=== PATIENT | male | born 1935 | race Caucasian/White ===

== ENCOUNTER 2017-12-14 09:14 | Inpatient (IN) | payer OTHER, MEDICARE ==
[~2017-12-14] VITALS: Ht 170.2 cm; Wt 133.4 kg
[2017-12-14] VITALS (12 sets, daily range): BP systolic 123–184; BP diastolic 58–75; PULSE 54–69; RESP 16–24; TEMP 96–98; O2SAT 95–98
[2017-12-14] MEDS ORDERED: SODIUM CHLORIDE 0.9% FLUSH 10 ML FLUSH IVF PRN (09:45)
[2017-12-14] MEDS ORDERED: METF500T PO (09:50)
[2017-12-14] MEDS ORDERED: TAMS0.4C4 PO (09:50)
[2017-12-14] MEDS ORDERED: ASPI-516 CHEW (09:50)
[2017-12-14] MEDS ORDERED: LEVO100T5 PO (09:50)
[2017-12-14] MEDS ORDERED: HYDR-3516 PO (09:50)
[2017-12-14] MEDS ORDERED: ROSU1TAB8 PO (09:50)
[2017-12-14] MEDS ORDERED: ATEN100T7 PO (09:50)
[2017-12-14] MEDS ORDERED: FINA5TAB2 (09:50)
[2017-12-14] MEDS ORDERED: ENAL10TA PO (09:50)
--- NOTE | 2017-12-14 09:54 | PD ---
HPI Chief Complaint: Cardiac Complaint Time Seen by Provider: 09:36 Travel History International Travel<30 days: No Contact w/Intl Traveler<30days: No Traveled to known affect area: No History of Present Illness HPI Patient woke up with an episode of shortness of breath/chest tightness, nonradiating, of such severity that he felt like he was going to pass out. Stated the episode lasted approximately 1 minute, and luckily he did not pass out. Patient denied any room spinning sensation, any fever, any rash, any nausea, any vomiting, any diarrhea, any abdominal pain, flank pain, back pain. Primary care is Dr.GREGORY LI CARDIO DR ARANDA No known drug allergy Past medical history significant for heart valve issue, hypertension, PFSH Past Medical History Cardiovascular Problems: Yes Hypertension: Yes Medical other: Yes (needs knee replacement) Respiratory: Yes Past Surgical History Surgical History: No Previous Surgery Social History Alcohol Use: No Tobacco Use: No Substance Use: No Allergies-Medications (Allergen,Severity, Reaction): Coded Allergies: No Known Allergies (Verified Allergy, Unknown, 12/14/17) Reported Meds & Prescriptions Reported Meds & Active Scripts Active Reported Aspirin 81 Mg Chew 81 Mg CHEW DAILY Hydrocodone-Acetaminophen 5-325 mg Tab 1 Tab PO Q4H PRN Rosuvastatin (Rosuvastatin Calcium) 20 Mg Tab 20 Mg PO DAILY Finasteride 5 Mg Tab 5 Mg DAILY Do not crush. Levothyroxine (Levothyroxine Sodium) 100 Mcg Tab 100 Mcg PO DAILY Metformin (Metformin HCl) 500 Mg Tab 500 Mg PO BIDPC Tamsulosin (Tamsulosin HCl) 0.4 Mg Cap 0.8 Mg PO HS Atenolol-Chlorthalidone 100-25 Mg Tab 1 Tab PO DAILY Enalapril (Enalapril Maleate) 10 Mg Tab 10 Mg PO DAILY Review of Systems General / Constitutional: No: Fever Eyes: No: Visual changes HENT: No: Headaches Cardiovascular: No: Chest Pain or Discomfort Respiratory: Positive: Shortness of Breath Gastrointestinal: No: Abdominal Pain Genitourinary: No: Dysuria Musculoskeletal: No: Pain Skin: No Rash Neurologic: Positive: Syncope Psychiatric: No: Depression Endocrine: No: Polydipsia Hematologic/Lymphatic: No: Easy Bruising Physical Exam Narrative GENERAL: SKIN: Warm and dry. HEAD: Atraumatic. Normocephalic. EYES: Pupils equal and round. No scleral icterus. No injection or drainage. ENT: No nasal bleeding or discharge. Mucous membranes pink and moist. NECK: Trachea midline. No JVD. CARDIOVASCULAR: Regular rate and rhythm. Loud murmur radiating to the left axilla RESPIRATORY: No accessory muscle use. Clear to auscultation. Breath sounds equal bilaterally. GASTROINTESTINAL: Abdomen soft, non-tender, nondistended. MUSCULOSKELETAL: Extremities without clubbing, cyanosis, or bilateral lower extremity 3+ edema. No obvious deformities. NEUROLOGICAL: Awake and alert. No obvious cranial nerve deficits. Motor grossly within normal limits. Five out of 5 muscle strength in the arms and legs. Normal speech. PSYCHIATRIC: Appropriate mood and affect; insight and judgment normal. Data Data Last Documented VS Vital Signs Date Time Temp Pulse Resp B/P (MAP) Pulse Ox O2 Delivery O2 Flow Rate FiO2 12/14/17 12:00 54 17 152/66 (94) 97 Room Air 12/14/17 09:29 98.0 Orders Orders Electrocardiogram (12/14/17 09:36) B-Type Natriuretic Peptide (12/14/17 09:36) Ckmb (Isoenzyme) Profile (12/14/17 09:36) Complete Blood Count With Diff (12/14/17 09:36) Comprehensive Metabolic Panel (12/14/17 09:36) D-Dimer (12/14/17 09:36) Prothrombin Time / Inr (Pt) (12/14/17 09:36) Act Partial Throm Time (Ptt) (12/14/17 09:36) Troponin I (12/14/17 09:36) Lipase (12/14/17 09:36) Chest, Single Ap (12/14/17 09:36) Ecg Monitoring (12/14/17 09:36) Bilateral Bp Monitoring (12/14/17 09:36) Iv Access Insert/Monitor (12/14/17 09:36) Oximetry (12/14/17 09:36) Sodium Chloride 0.9% Flush (Ns Flush) (12/14/17 09:45) Ct Pulmonary Angiogram (12/14/17 10:33) Iohexol 350 Inj (Omnipaque 350 Inj) (12/14/17 13:20) Admit Order (Ed Use Only) (5/30/18 13:59) Labs Laboratory Tests Test 12/14/17 09:50 White Blood Count 6.5 TH/MM3 Red Blood Count 4.17 MIL/MM3 Hemoglobin 12.2 GM/DL Hematocrit 37.1 % Mean Corpuscular Volume 88.9 FL Mean Corpuscular Hemoglobin 29.3 PG Mean Corpuscular Hemoglobin Concent 33.0 % Red Cell Distribution Width 13.9 % Platelet Count 161 TH/MM3 Mean Platelet Volume 8.5 FL Neutrophils (%) (Auto) 63.0 % Lymphocytes (%) (Auto) 25.4 % Monocytes (%) (Auto) 9.7 % Eosinophils (%) (Auto) 1.2 % Basophils (%) (Auto) 0.7 % Neutrophils # (Auto) 4.1 TH/MM3 Lymphocytes # (Auto) 1.7 TH/MM3 Monocytes # (Auto) 0.6 TH/MM3 Eosinophils # (Auto) 0.1 TH/MM3 Basophils # (Auto) 0.0 TH/MM3 CBC Comment DIFF FINAL Differential Comment Prothrombin Time 10.0 SEC Prothromb Time International Ratio 1.0 RATIO Activated Partial Thromboplast Time 26.3 SEC D-Dimer Quantitative (PE/DVT) 0.86 MG/L FEU Blood Urea Nitrogen 26 MG/DL Creatinine 1.37 MG/DL Random Glucose 124 MG/DL Total Protein 6.9 GM/DL Albumin 3.3 GM/DL Calcium Level 8.8 MG/DL Alkaline Phosphatase 81 U/L Aspartate Amino Transf (AST/SGOT) 22 U/L Alanine Aminotransferase (ALT/SGPT) 29 U/L Total Bilirubin 0.3 MG/DL Sodium Level 140 MEQ/L Potassium Level 4.5 MEQ/L Chloride Level 105 MEQ/L Carbon Dioxide Level 27.0 MEQ/L Anion Gap 8 MEQ/L Estimat Glomerular Filtration Rate 50 ML/MIN Total Creatine Kinase 34 U/L Troponin I LESS THAN 0.02 NG/ML B-Type Natriuretic Peptide 132 PG/ML Lipase 226 U/L MDM Medical Decision Making Medical Screen Exam Complete: Yes Emergency Medical Condition: Yes Medical Record Reviewed: Yes Interpretation(s) Pulse ox: On room air patient's pulse oximetry read from 97-100 which is within normal limits and without any evidence of hypoxemia EKG shows normal sinus rhythm, 65 bpm, first-degree AV block, no ST elevation [place] pattern noted, Differential Diagnosis Pulmonary embolus versus pneumonia versus pericardial effusion versus STEMI versus symptomatic heart valve Narrative Course CBC shows no leukocytosis, no anemia, normal platelet count, no left shift Coagulation profile is within normal limits D-dimer is elevated at 0.86 Electrolytes are all within normal limits with the exception of a BUN of 26, creatinine 1.37, GFR of 50, first set of troponin negative, normal liver enzymes normal pancreatic enzymes. Beta natruretic peptide of 132 which is within normal limits Chest x-ray read by radiologist as moderate compensated cardiomegaly, consolidative changes in the base CT chest was read by radiologist as no evidence of pulmonary embolus and coronary artery calcifications Diagnosis Primary Impression: Symptomatic valve disorder Admitting Information Admitting Physician Requests: Observation Eligio Martinez MD December 14, 2017 09:54
[2017-12-14 10:04] LABS: AUTOMATED NEUTROPHIL # 4.1 TH/MM3 (1.8-7.7); BASOPHIL % 0.7 % (0.0-2.0); EOSINOPHIL # 0.1 TH/MM3 (0-0.4); EOSINOPHIL % 1.2 % (0.0-4.0); HEMATOCRIT 37.1 % (39.0-51.0); HEMOGLOBIN 12.2 GM/DL (13.0-17.0); LYMPH % 25.4 % (9.0-44.0); LYMPHOCYTE # 1.7 TH/MM3 (1.0-4.8); MEAN CELL VOLUME 88.9 FL (80.0-100.0); MEAN CORPUSCULAR HEMOGLOBIN 29.3 PG (27.0-34.0); MEAN PLATELET VOLUME 8.5 FL (7.0-11.0); MONO % 9.7 % (0.0-8.0); MONOCYTE # 0.6 TH/MM3 (0-0.9); PLATELET COUNT 161 TH/MM3 (150-450); RED BLOOD COUNT 4.17 MIL/MM3 (4.50-5.90); RED CELL DISTRIBUTION WIDTH 13.9 % (11.6-17.2); WHITE BLOOD COUNT 6.5 TH/MM3 (4.0-11.0)
[2017-12-14 10:19] LABS: D-DIMER 0.86 MG/L FEU (0.00-0.50)
--- NOTE | 2017-12-14 10:22 | RADRPT ---
EXAM DATE: 12/14/2017 10:09 AM EDT AGE/SEX: 82 years / Male INDICATIONS: Short of breath,syncope CLINICAL DATA: This is the patient's initial encounter. Patient reports that signs and symptoms have been present for 1 day and indicates a pain score of 0/10. MEDICAL/SURGICAL HISTORY: . hx of aortic valve problems None. COMPARISON: No prior [place] exams available for comparison. FINDINGS: Moderate cardiomegaly with consolidative changes left base. No overt failure. No pleural effusion. Th e portion of the bony skeleton visualized is unremarkable. CONCLUSION: Moderate compensated the baby cardiomegaly Consolidative changes left base. Electronically signed by: Wally Pena MD 12/14/2017 10:20 AM EDT
[2017-12-14 10:27] LABS: ALBUMIN 3.3 GM/DL (3.4-5.0); ALT (GPT) 29 U/L (12-78); AST (GOT) 22 U/L (15-37); BLOOD UREA NITROGEN 26 MG/DL (7-18); CALCIUM 8.8 MG/DL (8.5-10.1); CHLORIDE 105 MEQ/L (98-107); CREATININE 1.37 MG/DL (0.60-1.30); GLOMERULAR FILTRATION RATE 50 ML/MIN (>89); GLUCOSE,RANDOM 124 MG/DL (74-106); SODIUM (NA) 140 MEQ/L (136-145)
[2017-12-14 10:31] LABS: ALKALINE PHOSPHATASE 81 U/L (45-117); TOTAL BILIRUBIN ADULT 0.3 MG/DL (0.2-1.0); TOTAL PROTEIN 6.9 GM/DL (6.4-8.2); TROPONIN I LESS THAN 0.02 NG/ML (0.02-0.05)
[2017-12-14] MEDS ORDERED: IOHEXOL 350 MG/ML 10 ML VIAL (for RAD DIAG) IVCONTRAST ONE (13:20)
--- NOTE | 2017-12-14 13:29 | RADRPT ---
EXAM DATE: 12/14/2017 1:23 PM EDT AGE/SEX: 82 years / Male INDICATIONS: Shortness of breath for three days. CLINICAL DATA: This is the patient's initial encounter. Patient reports that signs and symptoms have been present for 1 day and indicates a pain score of 3/10. MEDICAL/SURGICAL HISTORY: Hypertension. None. RADIATION DOSE: 10.64 CTDI (mGy) COMPARISON: No prior [place] exams available for comparison. TECHNIQUE: Volumetric scanning was performed using a multi-row detector CT scanner during bolus infu nathalia of 71 ml Omnipaque 350 (iohexol) nonionic water-soluble contrast as a single exam dose. The yasmine a was post processed with a variety of visualization algorithms including full volume maximum intensi ty projection and sliding thin slab reformation. Using automated exposure control and adjustment of the mA and/or kV according to patient size, radiation dose was kept as low as reasonably achievable t o obtain optimal diagnostic quality images. FINDINGS: Pulmonary Arteries: No filling defects are seen in the pulmonary arteries out to the subsegmental ve ssels. The left and right pulmonary arteries are normal in diameter. Lung: No infiltrates seen. Effusion: None. Mediastinum: No evidence of mediastinal or hilar adenopathy. Coronary artery calcifications are pres ent. Atherosclerotic changes are present in the aorta. Other: The axilla is unremarkable. CONCLUSION: 1. No evidence of pulmonary embolism. 2. Coronary artery calcifications. Electronically signed by: Huber Hough MD 12/14/2017 1:28 PM EDT
--- NOTE | 2017-12-14 13:53 | EKG ---
Date Performed: 12/14/2017 Time Performed: 09:40:14 PTAGE: 82 years EKG: Sinus rhythm WITH SINUS ARRHYTHMIA WITH FIRST DEGREE AV BLOCK MODERATE INTRAVENTRICULAR CONDUCTION DELAY ABNORMAL ECG INTERPRETATION BASED ON A DEFAULT AGE OF 40 YEARS NO PREVIOUS TRACING DOCTOR: Brendon Dominguez Interpretating Date/Time 12/14/2017 13:51:48
[2017-12-14] MEDS ORDERED: IOHEXOL 350 MG/ML 100 ML BTL (for Cath Lab) OTHER ONE (14:02)
[2017-12-14] MEDS ORDERED: IOHEXOL 350 MG/ML 50 ML BTL (for Cath Lab) OTHER ONE (14:02)
[2017-12-14] MEDS ORDERED: NITROGLYCERIN 0.4 MG SL 25 TABS/BTL SL PRN (15:30)
[2017-12-14] MEDS ORDERED: MORPHINE SULFATE 2 MG/ML SYRINGE IV PUSH PRN ×2 (15:30)
[2017-12-14] MEDS ORDERED: NALOXONE HCL 0.4 MG/ML AMP IV PUSH PRN (15:30)
[2017-12-14] MEDS ORDERED: ONDANSETRON HCL 4 MG/2 ML VIAL IVP PRN (15:30)
[2017-12-14] MEDS ORDERED: SODIUM CHLORIDE 0.9% FLUSH 10 ML FLUSH IV FLUSH PRN ×2 (15:30)
[2017-12-14] MEDS ORDERED: MAGNESIUM HYDROXIDE SUSP 30 ML CUP PO PRN (15:30)
--- NOTE | 2017-12-14 15:39 | HHI.HP ---
[facility] Service [facility] Primary Care Physician James Aguirre M.D. Admission Diagnosis CP R/O CT Diagnoses: Travel History International Travel<30 Days: No Contact w/Intl Traveler <30 Da: No Traveled to Known Affected Are: No History of Present Illness Mr. Ashton is an 82 year old male. He came into the hospital after having a syncopal episode. He has aortic stenosis at baseline and follows as an outpatient with Dr. Grove. Etiology could be related to his aortic stenosis or another cause. When seen he is feeling back to baseline and has no complaints. He reports that he lost his orientation and lost his bladder. He says he recuperated back to consciousness in about 1 minute. No evidence of seizure activity. No other complaints today. He did not have any chest pain. He did not have any chest tightness. He does report that he was short of breath. He has had previous shortness of breath episodes similar to the one that preceded his syncopal episode today. Review of Systems Constitutional: DENIES: Fatigue, Fever, Chills Eyes: DENIES: Blurred vision, Diplopia, Eye inflammation, Eye pain Ears, nose, mouth, throat: DENIES: Hearing loss, Vertigo Respiratory: DENIES: Cough, Wheezing, Shortness of breath Cardiovascular: COMPLAINS OF: Chest pain, Syncope, DENIES: Palpitations, Dyspnea on Exertion Gastrointestinal: DENIES: Abdominal pain, Black stools, Bloody stools Musculoskeletal: DENIES: Joint pain, Muscle aches, Stiffness Integumentary: DENIES: Abnormal pigmentation, Nail changes, Pruritus, Rash Hematologic/lymphatic: DENIES: Bruising, Lymphadenopathy Immunologic/allergic: DENIES: Eczema, Urticaria Neurologic: DENIES: Abnormal gait, Headache, Paresthesias Psychiatric: DENIES: Anxiety, Confusion, Hallucinations Past Family Social History Past Medical History Valve Disease HTN DM2 Osteoarthritis Hyperlipidemia BPH Past Surgical History None reported Reported Medications Reported Meds & Active Scripts Active Reported Aspirin 81 Mg Chew 81 Mg CHEW DAILY Hydrocodone-Acetaminophen 5-325 mg Tab 1 Tab PO Q4H PRN Rosuvastatin (Rosuvastatin Calcium) 20 Mg Tab 20 Mg PO DAILY Finasteride 5 Mg Tab 5 Mg DAILY Do not crush. Levothyroxine (Levothyroxine Sodium) 100 Mcg Tab 100 Mcg PO DAILY Metformin (Metformin HCl) 500 Mg Tab 500 Mg PO BIDPC Tamsulosin (Tamsulosin HCl) 0.4 Mg Cap 0.8 Mg PO HS Atenolol-Chlorthalidone 100-25 Mg Tab 1 Tab PO DAILY Enalapril (Enalapril Maleate) 10 Mg Tab 10 Mg PO DAILY Allergies: Coded Allergies: No Known Allergies (Verified Allergy, Unknown, 12/14/17) Family History Coronary artery disease in father and brother Social History No smoking history No alcohol abuse No illicit drug abuse Physical Exam Vital Signs Vital Signs Date Time Temp Pulse Resp B/P (MAP) Pulse Ox O2 Delivery O2 Flow Rate FiO2 12/14/17 12:00 54 17 152/66 (94) 97 Room Air 12/14/17 11:00 56 20 141/65 (90) 97 Room Air 12/14/17 09:43 64 24 172/74 (106) 98 Room Air 12/14/17 09:38 70 25 98 Room Air 12/14/17 09:29 98.0 64 18 123/58 (79) 97 Physical Exam GENERAL: This is a well-nourished, well-developed patient, in no apparent distress. SKIN: No rashes, ecchymoses or lesions. Cool and dry. HEAD: Atraumatic. Normocephalic. No temporal or scalp tenderness. EYES: Pupils equal round and reactive. Extraocular motions intact. No scleral icterus. No injection or drainage. ENT: Nose without bleeding, purulent drainage or septal hematoma. Throat without erythema, tonsillar hypertrophy or exudate. Uvula midline. Airway patent. NECK: Trachea midline. No JVD or lymphadenopathy. Supple, nontender, no meningeal signs. CARDIOVASCULAR: Regular rate and rhythm without murmurs, gallops, or rubs. RESPIRATORY: Clear to auscultation. Breath sounds equal bilaterally. No wheezes , rales, or rhonchi. GASTROINTESTINAL: Abdomen soft, non-tender, nondistended. No hepato-splenomegaly , or palpable masses. No guarding. MUSCULOSKELETAL: Extremities without clubbing, cyanosis, or edema. No joint tenderness, effusion, or edema noted. No calf tenderness. Negative Homans sign bilaterally. NEUROLOGICAL: Awake and alert. Cranial nerves II through XII intact. Motor and sensory grossly within normal limits. Five out of 5 muscle strength in all muscle groups. Normal speech. Laboratory Laboratory Tests Test 12/14/17 09:50 White Blood Count 6.5 Red Blood Count 4.17 Hemoglobin 12.2 Hematocrit 37.1 Mean Corpuscular Volume 88.9 Mean Corpuscular Hemoglobin 29.3 Mean Corpuscular Hemoglobin Concent 33.0 Red Cell Distribution Width 13.9 Platelet Count 161 Mean Platelet Volume 8.5 Neutrophils (%) (Auto) 63.0 Lymphocytes (%) (Auto) 25.4 Monocytes (%) (Auto) 9.7 Eosinophils (%) (Auto) 1.2 Basophils (%) (Auto) 0.7 Neutrophils # (Auto) 4.1 Lymphocytes # (Auto) 1.7 Monocytes # (Auto) 0.6 Eosinophils # (Auto) 0.1 Basophils # (Auto) 0.0 CBC Comment DIFF FINAL Differential Comment Prothrombin Time 10.0 Prothromb Time International Ratio 1.0 Activated Partial Thromboplast Time 26.3 D-Dimer Quantitative (PE/DVT) 0.86 Blood Urea Nitrogen 26 Creatinine 1.37 Random Glucose 124 Total Protein 6.9 Albumin 3.3 Calcium Level 8.8 Alkaline Phosphatase 81 Aspartate Amino Transf (AST/SGOT) 22 Alanine Aminotransferase (ALT/SGPT) 29 Total Bilirubin 0.3 Sodium Level 140 Potassium Level 4.5 Chloride Level 105 Carbon Dioxide Level 27.0 Anion Gap 8 Estimat Glomerular Filtration Rate 50 Total Creatine Kinase 34 Troponin I LESS THAN 0.02 B-Type Natriuretic Peptide 132 Lipase 226 Result Diagram: 12/14/1750 12/14/17 [address] Angiography 12/14/17 1033 Signed Impressions: CONCLUSION: 1. No evidence of pulmonary embolism. 2. Coronary artery calcifications. Chest X-Ray 12/14/17 0936 Signed Impressions: CONCLUSION: Moderate compensated the baby cardiomegaly Consolidative changes left base. Caprini VTE Risk Assessment Caprini VTE Risk Assessment: Mod/High Risk (score >= 2) Caprini Risk Assessment Model Point Value = 1 Point Value = 2 Point Value = 3 Point Value = 5 Age 41-60 Minor surgery BMI > 25 kg/m2 Swollen legs Varicose veins or History of unexplained or recurrent spontaneous Oral contraceptives or hormone replacement Sepsis (< 1 month) Serious lung disease, including pneumonia (< 1 month) Abnormal pulmonary function Acute myocardial infarction Congestive heart failure (< 1 month) History of inflammatory bowel disease Medical patient at bed rest Age 61-74 Arthroscopic surgery Major open surgery (> 45 min) Laparoscopic surgery (> 45 min) Malignancy Confined to bed (> 72 hours) Immobilizing plaster cast Central venous access Age >= 75 History of VTE Family history of VTE Factor V Leiden Prothrombin [id number] Lupus anticoagulant Anticardiolipin antibodies Elevated serum homocysteine Heparin-induced thrombocytopenia Other congenital or acquired thrombophilia Stroke (< 1 month) Elective arthroplasty Hip, pelvis, or leg fracture Acute spinal cord injury (< 1 month) Prophylaxis Regimen Total Risk Factor Score Risk Level Prophylaxis Regimen 0-1 Low Early ambulation 2 Moderate Order ONE of the following: *Sequential Compression Device (SCD) *Heparin 5000 units SQ BID 3-4 Higher Order ONE of the following medications: *Heparin 5000 units SQ TID *Enoxaparin/Lovenox 40 mg SQ daily (WT < 150 kg, CrCl > 30 mL/min) *Enoxaparin/Lovenox 30 mg SQ daily (WT < 150 kg, CrCl > 10-29 mL/min) *Enoxaparin/Lovenox 30 mg SQ BID (WT < 150 kg, CrCl > 30 mL/min) AND/OR *Sequential Compression Device (SCD) 5 or more Highest Order ONE of the following medications: *Heparin 5000 units SQ TID (Preferred with Epidurals) *Enoxaparin/Lovenox 40 mg SQ daily (WT < 150 kg, CrCl > 30 mL/min) *Enoxaparin/Lovenox 30 mg SQ daily (WT < 150 kg, CrCl > 10-29 mL/min) *Enoxaparin/Lovenox 30 mg SQ BID (WT < 150 kg, CrCl > 30 mL/min) AND *Sequential Compression Device (SCD) Assessment and Plan Problem List: (1) Chest pain ICD Code: R07.9 - Chest pain, unspecified Assessment and Plan 82 year old male admitted with syncope Syncope Aortic Stenosis No Chest Pain Evaluate for ACS Follow cardiac enzymes Aspirin daily When necessary oxygen When necessary morphine for pain. If necessary nitroglycerin for chest pain Follow on telemetry Cardiology consult Carotid ultrasound Orthostatic blood pressure checks Possible recent echocardiogram as an outpatient, the need for this will be deferred to cardiology Hypertension Continue baseline treatment Follow blood pressures Adjust treatments as needed Diabetes mellitus type 2 Follow blood sugars Insulin sliding scale Diabetic diet Hyperlipidemia Continue present treatment Follow as an outpatient Osteoarthritis Lymphedema BPH Stable Continue baseline treatments DVT prophylaxis Lovenox SCDs Ace Segovia MD December 14, 2017 15:39
[2017-12-14] MEDS ORDERED: DEXTROSE 50% IN WATER 50 ML VIAL(D50) IV PUSH PRN (16:15)
[2017-12-14] MEDS ORDERED: GLUCAGON 1 MG/ML VIAL OTHER PRN (16:15)
[2017-12-14 17:04] LABS: TROPONIN I LESS THAN 0.02 NG/ML (0.02-0.05)
[2017-12-14] MEDS: ENOXAPARIN SODIUM 40 MG/0.4 ML SYRINGE SQ SCH (17:19)
[2017-12-14] MEDS: INSULIN ASPART SUPPLEMENTAL SCALE SQ SCH ×2 (17:20→21:00)
--- NOTE | 2017-12-14 18:30 | MB ---
cc: Charlie Ortega MD DATE: 12/14/2017 REASON FOR CONSULTATION: Evaluation of near-syncopal episode. HISTORY OF PRESENT ILLNESS: Lonnie Ashton is an 82-year-old man who is in general poor health. He has diabetes and extreme morbid obesity, with chronic edema, which he says is lymphedema. He also has sleep apnea, neuropathy, hypertension, hyperlipidemia. The patient is known to have severe aortic stenosis. He sees my colleague, Dr. Grove. His last office visit was June 2017. At that time, he was not symptomatic. He declined any intervention for his valve. He says he was sitting at the breakfast table and started becoming short of breath, which got severe, got to the point where he nearly passed out. The ER doctor reported that he had chest tightness, but I cannot pull that out of him. He denied any chest discomfort. He is quite sedentary. He uses a walker and gets around inside of his house, but otherwise does not get around very much. PAST MEDICAL HISTORY: Includes extreme severe morbid obesity, type 2 diabetes, chronic edema, which he says is lymphedema, hyperlipidemia, hypertension, neuropathy, sleep apnea. PAST SURGICAL HISTORY: Unremarkable. SOCIAL HISTORY: Nonsmoker, nondrinker. He is retired. REVIEW OF SYSTEMS: Notable for severe back pain, both knees are bad, shortness of breath has been ongoing for at least a year. ALLERGIES: NONE KNOWN. FAMILY HISTORY: Positive for heart disease in a brother and father. PHYSICAL EXAMINATION: GENERAL: Shows a pleasant, hard of hearing, elderly white male. VITAL SIGNS: Charted. HEENT: Unremarkable. NECK: Shows transmitted cardiac murmurs to the carotids. CHEST: Shows diminished breath sounds. No wheezes or rales. CARDIAC: PMI is not palpable. Soft S1, soft S2 and a grade III/ late peaking, severe high pitched aortic stenosis type murmur. ABDOMEN: Morbidly obese. No masses appreciable. EXTREMITIES: He has a good right femoral pulse. Left femoral pulse was not as easy to feel. Pedal pulses are difficult to assess due to the extreme edema. He has got lipodermatosclerosis as well on his legs. LABORATORY DATA: Shows a creatinine is elevated 1.37. Troponin is negative. IMAGING: Chest x-ray showing cardiomegaly and possible consolidation of the left base, but the CTA did not show any consolidation, it did not show any evidence for pulmonary emboli. IMPRESSION: Severe aortic stenosis, near-syncopal episode today with shortness of breath, very worrisome. Likely needs aortic valve replacement. The patient is also at high risk for having severe coronary artery disease. RECOMMENDATIONS: Check a 2D echo Doppler, carotid Doppler and renal ultrasound. I have him scheduled for cardiac catheterization 02/13, on Tuesday, while we complete the remainder of his noninvasive workup. Discussed in detail in the presence of his daughter and son-in-law. All questions were answered. Further therapy to be determined. MD CATARINO Overton/MANDY , 05:56 PM , 06:30 PM
--- NOTE | 2017-12-14 19:29 | RADRPT ---
EXAM DATE: 12/14/2017 7:14 PM EDT AGE/SEX: 82 years / Male INDICATIONS: Syncope. CLINICAL DATA: This is the patient's initial encounter. Patient reports that signs and symptoms have been present for 1 day and indicates a pain score of 0/10. MEDICAL/SURGICAL HISTORY: . Hypertension. Diabetes. Hyperlipidemia. Aortic stenosis. Benign prostatic hypertrophy. None. COMPARISON: No prior [place] exams available for comparison. No external comparison. VELOCITY PARAMETERS: ICA/CCA Ratio: Right 1.5 , Left 0.9 ICA: Right 113 cm/sec, Left 68 cm/sec CCA: Right 78 cm/sec, Left 72 cm/sec ECA: Right 52 cm/sec, Left 61 cm/sec Vertebral: Right 64 cm/sec antegrade, Left 62 cm/sec antegrade FINDINGS: Right Carotid: Bulky calcified plaque in the origin of the ICA. The waveforms are within normal limi ts. Left Carotid: Bulky calcified plaque in the bulb and origin of the ICA. The waveforms are within no rmal limits. Other: None. CONCLUSION: 1. Right Internal Carotid Artery: Findings indicate <50% stenosis. 2. Left Internal Carotid Artery: Findings indicate <50% stenosis. Electronically signed by: Viraj Dinh MD 12/14/2017 7:28 PM EDT
--- NOTE | 2017-12-14 19:33 | RADRPT ---
EXAM DATE: 12/14/2017 7:22 PM EDT AGE/SEX: 82 years / Male INDICATIONS: Increased BUN and creatinine. CLINICAL DATA: This is the patient's initial encounter. Patient reports that signs and symptoms have been present for 1 day and indicates a pain score of 0/10. MEDICAL/SURGICAL HISTORY: . Hypertension. Diabetes. Hyperlipidemia. Aortic stenosis. Benign prostatic hypertrophy. None. COMPARISON: No prior [place] exams available for comparison. No external comparison. MEASUREMENTS: Right Kidney:__10.8 x 6.7 x 5.4 cm Left Kidney:__10.7 x 5.4 x 4.4 cm FINDINGS: Right Kidney: The right kidney appears to be within normal limits for size, shape and echogenicity. N o evidence of hydronephrosis. Left Kidney: The left kidney appears to be within normal limits for size, shape and echogenicity. No evidence of hydronephrosis. Bladder: Within normal limits given the degree of distension. CONCLUSION: 1. Unremarkable bilateral renal ultrasound for patient's age. Electronically signed by: Ever Valencia MD 12/14/2017 7:31 PM EDT
[2017-12-14] MEDS ORDERED: SODIUM CHLORIDE 0.9% FLUSH 10 ML FLUSH IV FLUSH SCH (21:00)
[2017-12-14] MEDS: SODIUM CHLORIDE 0.9% FLUSH 10 ML FLUSH IV FLUSH SCH (21:16)
[2017-12-14] MEDS: TAMSULOSIN HCL 0.4 MG CAP PO SCH (21:16)
[2017-12-14] MEDS ORDERED: PILL SPLITTER OTHER PRN (21:30)
[2017-12-14 22:12] LABS: BILIRUBIN, URINE NEG (NEG); BLOOD, URINE NEG (NEG); GLUCOSE,URINE NEG (NEG); KETONE, URINE NEG (NEG); NITRITE,URINE NEG (NEG); SQUAMOUS EPITHELIAL CELL URINE <1 /hpf (0-5); URINE COLOR YELLOW (YELLW/STRAW); URINE LEUKOCYTE ESTERASE NEG (NEG)
[2017-12-15] VITALS (10 sets, daily range): BP systolic 118–131; BP diastolic 54–61; PULSE 57–67; RESP 16–20; TEMP 97.6–98; O2SAT 94–98
[2017-12-15 01:05] LABS: TROPONIN I LESS THAN 0.02 NG/ML (0.02-0.05)
[2017-12-15] MEDS: LEVOTHYROXINE SODIUM 100 MCG TAB PO SCH (05:29)
[2017-12-15] MEDS: INSULIN ASPART SUPPLEMENTAL SCALE SQ SCH ×4 (08:00→21:00)
[2017-12-15] MEDS ORDERED: NON-FORMULARY DRUG (Rosuvastatin 20 MG) PO SCH (09:00)
[2017-12-15] MEDS ORDERED: CHLORTHALIDONE/ATENOLOL 25 MG/100 MG TAB PO SCH (09:00)
[2017-12-15] MEDS: ENALAPRIL MALEATE 10 MG TAB PO SCH (09:54)
[2017-12-15] MEDS: ASPIRIN 325 MG TAB PO SCH (09:54)
[2017-12-15] MEDS: FINASTERIDE 5 MG TAB PO SCH (09:54)
[2017-12-15] MEDS: ATENOLOL 100 MG TAB PO SCH (09:55)
[2017-12-15] MEDS: SODIUM CHLORIDE 0.9% FLUSH 10 ML FLUSH IV FLUSH SCH ×2 (09:55→23:15)
[2017-12-15] MEDS: CHLORTHALIDONE 50 MG TAB PO SCH (09:55)
[2017-12-15] MEDS: ATORVASTATIN 40 MG TAB PO SCH (09:55)
[2017-12-15] MEDS: SODIUM CHLOR 0.9% 1000 ML INJ 1,000 ML IV SCH (10:02)
--- NOTE | 2017-12-15 10:02 | PD.CARD.PN ---
Subjective Subjective Remarks No chest pain or dyspnea episode Objective Medications Current Medications Medications (Trade) Dose Ordered Sig/Gume Route Start Time Stop Time Status Last Admin (Zofran Inj) 4 mg Q6H PRN IVP 12/14/17 15:30 (Lovenox Inj) 40 mg Q24H SQ 12/14/17 16:00 12/14/17 17:19 (Morphine Inj) 2 mg Q3H PRN IV PUSH 12/14/17 15:30 (Morphine Inj) 4 mg Q3H PRN IV PUSH 12/14/17 15:30 (Narcan Inj) 0.4 mg UNSCH PRN IV PUSH 12/14/17 15:30 (Milk Of Magnesia Liq) 30 ml Q12H PRN PO 12/14/17 15:30 (NS Flush) 2 ml UNSCH PRN IV FLUSH 12/14/17 15:30 (NS Flush) 2 ml BID IV FLUSH 12/14/17 21:00 12/15/17 09:55 (Nitrostat Sl) 0.4 mg Q5M PRN SL 12/14/17 15:30 (Aspirin) 325 mg DAILY PO 12/15/17 09:00 12/15/17 09:54 (Vasotec) 10 mg DAILY PO 12/15/17 09:00 12/15/17 09:54 (Proscar) 5 mg DAILY PO 12/15/17 09:00 12/15/17 09:54 (Synthroid) 100 mcg DAILY@0600 PO 12/15/17 06:00 12/15/17 05:29 (Flomax) 0.8 mg HS PO 12/14/17 21:00 12/14/17 21:16 (Lipitor) 40 mg DAILY PO 12/15/17 09:00 12/15/17 09:55 (D50w (Vial) Inj) 50 ml UNSCH PRN IV PUSH 12/14/17 16:15 (Glucagon Inj) 1 mg UNSCH PRN OTHER 12/14/17 16:15 (NovoLOG SUPPLEMENTAL SCALE) 1 ACHS SLIDING SCALE SQ 12/14/17 17:00 12/14/17 17:20 (Tenormin) 100 mg DAILY PO 12/15/17 09:00 12/15/17 09:55 (Hygroton) 25 mg DAILY PO 12/15/17 09:00 12/15/17 09:55 (Pill Splitter) 1 ea UNSCH PRN OTHER 12/14/17 21:30 12/15/17 09:54 Vital Signs / I&O Vital Signs Date Time Temp Pulse Resp B/P (MAP) Pulse Ox O2 Delivery O2 Flow Rate FiO2 12/15/17 08:51 57 12/15/17 08:40 97.6 64 20 129/58 (81) 96 12/15/17 04:23 97.6 67 16 131/61 (84) 98 12/15/17 00:59 62 12/15/17 00:33 97.6 61 16 124/59 (80) 98 12/14/17 20:17 97.6 63 16 129/60 (83) 95 12/14/17 19:53 97 12/14/17 17:41 69 12/14/17 17:05 146/65 (92) 12/14/17 17:01 184/75 (111) 12/14/17 16:57 96.0 60 18 139/65 (89) 97 12/14/17 16:50 12/14/17 16:39 54 17 150/67 (94) 97 Room Air 12/14/17 15:56 98 21 12/14/17 12:00 54 17 152/66 (94) 97 Room Air 12/14/17 11:00 56 20 141/65 (90) 97 Room Air Physical Exam Alert, extreme morbid obesity chest diminished BS CV S1S2 RRR, 2/6 SAI suggestive of severe Abdomen soft 2+ LE edema Laboratory Laboratory Tests Test 12/14/17 16:30 12/14/17 21:20 12/15/17 00:10 Total Creatine Kinase 40 U/L 54 U/L Troponin I LESS THAN 0.02 NG/ML LESS THAN 0.02 NG/ML Urine Color YELLOW Urine Turbidity CLEAR Urine pH 6.0 Urine Specific [place] 1.029 Urine Protein NEG mg/dL Urine Glucose (UA) NEG mg/dL Urine Ketones NEG mg/dL Urine Occult Blood NEG Urine Nitrite NEG Urine Bilirubin NEG Urine Urobilinogen LESS THAN 2.0 MG/DL Urine Leukocyte Esterase NEG Urine RBC LESS THAN 1 /hpf Urine WBC LESS THAN 1 /hpf Urine Squamous Epithelial Cells <1 /hpf Microscopic Urinalysis Comment CULT NOT INDICATED Imaging Last [address] Angiography 12/14/17 1033 Signed Impressions: CONCLUSION: 1. No evidence of pulmonary embolism. 2. Coronary artery calcifications. Assessment and Plan Problem List: (1) Morbid obesity ICD Codes: E66.01 - Morbid (severe) obesity due to excess calories (2) Aortic stenosis ICD Codes: I35.0 - Nonrheumatic aortic (valve) stenosis Plan: echo pending. Suspect severe. Likely TAVR candidate (3) Coronary artery disease ICD Codes: I25.10 - Atherosclerotic heart disease of [place] coronary artery without angina pectoris Plan: Cardiac cath in AM (4) Chest pain ICD Codes: R07.9 - Chest pain, unspecified Assessment and Plan Informed consent for cath, poss PCI in AM Charlie Ortega MD December 15, 2017 10:02
[2017-12-15] MEDS ORDERED: diphenhydrAMINE HCL 50 MG CAP PO SCH (10:15)
[2017-12-15] MEDS ORDERED: DIAZEPAM 5 MG TAB PO SCH (10:15)
[2017-12-15 10:51] LABS: AUTOMATED NEUTROPHIL # 3.2 TH/MM3 (1.8-7.7); BASOPHIL % 0.8 % (0.0-2.0); EOSINOPHIL # 0.1 TH/MM3 (0-0.4); EOSINOPHIL % 1.1 % (0.0-4.0); HEMATOCRIT 37.6 % (39.0-51.0); HEMOGLOBIN 12.7 GM/DL (13.0-17.0); LYMPH % 23.6 % (9.0-44.0); LYMPHOCYTE # 1.2 TH/MM3 (1.0-4.8); MEAN CELL VOLUME 89.3 FL (80.0-100.0); MEAN CORPUSCULAR HEMOGLOBIN 30.1 PG (27.0-34.0); MEAN CORPUSCULAR HGB CONC 33.7 % (32.0-36.0); MEAN PLATELET VOLUME 8.9 FL (7.0-11.0); MONO % 9.3 % (0.0-8.0); MONOCYTE # 0.5 TH/MM3 (0-0.9); NEUT % 65.2 % (16.0-70.0); PLATELET COUNT 139 TH/MM3 (150-450); RED BLOOD COUNT 4.21 MIL/MM3 (4.50-5.90); RED CELL DISTRIBUTION WIDTH 13.9 % (11.6-17.2); WHITE BLOOD COUNT 4.9 TH/MM3 (4.0-11.0)
[2017-12-15 11:08] LABS: ALBUMIN 3.5 GM/DL (3.4-5.0); ALT (GPT) 26 U/L (12-78); BICARBONATE 27.5 MEQ/L (21.0-32.0); BLOOD UREA NITROGEN 26 MG/DL (7-18); CALCIUM 9.1 MG/DL (8.5-10.1); CHLORIDE 103 MEQ/L (98-107); CREATININE 1.19 MG/DL (0.60-1.30); GLOMERULAR FILTRATION RATE 58 ML/MIN (>89); GLUCOSE,RANDOM 103 MG/DL (74-106); SODIUM (NA) 139 MEQ/L (136-145)
[2017-12-15 11:18] LABS: ALKALINE PHOSPHATASE 78 U/L (45-117); AST (GOT) 24 U/L (15-37); FREE T3 2.21 PG/ML (2.18-3.98); THYROXINE (T4) 7.6 MCG/DL (4.5-12.1); TOTAL BILIRUBIN ADULT 0.5 MG/DL (0.2-1.0)
[2017-12-15] MEDS ORDERED: ACETAMINOPHEN 325 MG TAB PO PRN (13:00)
[2017-12-15] MEDS: ACETAMINOPHEN/HYDROcodone 325 MG/5 MG TAB PO PRN (13:15)
--- NOTE | 2017-12-15 14:54 | EKG ---
Date Performed: 12/15/2017 Time Performed: 00:04:31 PTAGE: 82 years EKG: Sinus rhythm WITH FIRST DEGREE AV BLOCK INFERIOR MYOCARDIAL INFARCTION Consider inferior AK, age indeterminate AB NORMAL ECG PREVIOUS TRACING : 12/14/2017 16.36 DOCTOR: Ry Lynn Interpretating Date/Time 12/15/2017 14:50:12
--- NOTE | 2017-12-15 14:54 | EKG ---
Date Performed: 12/14/2017 Time Performed: 16:36:38 PTAGE: 82 years EKG: SINUS BRADYCARDIA MODERATE INTRAVENTRICULAR CONDUCTION DELAY Consider inferior MO, age inde terminate BORDERLINE ECG PREVIOUS TRACING : 12/14/2017 09.40 DOCTOR: Ry Lynn Interpretating Date/Time 12/15/2017 14:49:54
--- NOTE | 2017-12-15 15:33 | HHI.PR ---
Subjective Remarks Follow-up dyspnea. Patient states that he still gets short of breath with any activity and even is short of breath at rest at times. Denies chest pain. Lower extremity lymphedema is unchanged. Objective Vitals Vital Signs Date Time Temp Pulse Resp B/P (MAP) Pulse Ox O2 Delivery O2 Flow Rate FiO2 12/15/17 14:13 98 21 12/15/17 11:55 58 12/15/17 08:51 57 12/15/17 08:40 97.6 64 20 129/58 (81) 96 12/15/17 04:23 97.6 67 16 131/61 (84) 98 12/15/17 00:59 62 12/15/17 00:33 97.6 61 16 124/59 (80) 98 12/14/17 20:17 97.6 63 16 129/60 (83) 95 12/14/17 19:53 97 12/14/17 17:41 69 12/14/17 17:05 146/65 (92) 12/14/17 17:01 184/75 (111) 12/14/17 16:57 96.0 60 18 139/65 (89) 97 12/14/17 16:50 12/14/17 16:39 54 17 150/67 (94) 97 Room Air 12/14/17 15:56 98 21 Result Diagram: 12/15/17 1014 12/15/[address] Angiography 12/14/17 1033 Signed Impressions: CONCLUSION: 1. No evidence of pulmonary embolism. 2. Coronary artery calcifications. Chest X-Ray 12/14/17 0936 Signed Impressions: CONCLUSION: Moderate compensated the baby cardiomegaly Consolidative changes left base. Renal Ultrasound 12/14/17 0000 Signed Impressions: CONCLUSION: 1. Unremarkable bilateral renal ultrasound for patient's age. Carotid Artery Ultrasound 12/14/17 0000 Signed Impressions: CONCLUSION: 1. Right Internal Carotid Artery: Findings indicate <50% stenosis. 2. Left Internal Carotid Artery: Findings indicate <50% stenosis. Objective Remarks General: Elderly male in no acute distress. Heart: Regular rate and rhythm. 3/6 aortic stenosis murmur. Lungs: Clear to auscultation bilaterally. No wheezes, rales, or rhonchi. Breathing is nonlabored. Abdomen: Soft, nontender, nondistended. Extremities: Bilateral lower extremity lymphedema. Psych: Alert and oriented. Neuro: Normal speech. No focal deficits noted. Procedures None Urinary Catheter: No Vascular Central Line Catheter: No A/P Problem List: (1) Chest pain ICD Code: R07.9 - Chest pain, unspecified (2) Acute kidney injury ICD Code: N17.9 - Acute kidney failure, unspecified (3) Diabetes mellitus ICD Code: E11.9 - Type 2 diabetes mellitus without complications (4) Hyperlipidemia ICD Code: E78.5 - Hyperlipidemia, unspecified (5) Morbid obesity ICD Code: E66.01 - Morbid (severe) obesity due to excess calories (6) Aortic stenosis ICD Code: I35.0 - Nonrheumatic aortic (valve) stenosis Assessment and Plan 1. Dyspnea, syncope: Patient has severe aortic stenosis. Appreciate cardiology recommendations. Continue telemetry monitoring. Planning for cardiac catheterization tomorrow morning. Continue aspirin. 2. Hypertension: Continue atenolol, chlorthalidone, Vasotec. 3. Diabetes mellitus: Monitor Accu-Cheks and cover with sliding scale insulin. 4. Hyperlipidemia: Continue statin. 5. Chronic lower extremity lymphedema: Stable. 6. Acute kidney injury: Possibly a component of chronic kidney disease as well , but no prior labs are available at this time. Creatinine improving. Monitor labs. 7. Hypothyroidism: Continue Synthroid. 8. DVT prophylaxis: Erikanox, SCDs. Discharge Planning Pending cardiology clearance. José Boyce MD December 15, 2017 15:33
[2017-12-15] MEDS: ENOXAPARIN SODIUM 40 MG/0.4 ML SYRINGE SQ SCH (16:00)
--- NOTE | 2017-12-15 16:07 | ECHRPT ---
Indication: SHORTNESS OF BREATH CONCLUSIONS Normal left ventricular size. Moderate concentric left ventricular hypertrophy. The right ventricle is mildly dilated. The right ventricular systoilc function is normal. Thickened atrial septum is noted with morphological features most consistent with a lipomatous atria l septum. No atrial level shunt is demonstrated by color flow Doppler interrogation. Moderate mitral annular calcification. Diffuse calcification of the aortic valve. Mild aortic valve regurgitation. Severe aortic valve stenosis. Aortic valve area is 0.53 cm. Aortic valve mean gradient is 75 mmHg. There is trace tricuspid valve regurgitation. The estimated pulmonary arterial pressure is 28 mmHg. BP: / HR: Rhythm: Sinus MEASUREMENTS (Male / Female) Normal Values Technical Quality:Fair 2D ECHO LV Diastolic Diameter PLAX 4.9 cm 4.2 - 5.9 / 3.9 - 5.3 cm LV Systolic Diameter PLAX 3.5 cm IVS Diastolic Thickness 1.5 cm 0.6 - 1.0 / 0.6 - 0.9 cm LVPW Diastolic Thickness 1.5 cm 0.6 - 1.0 / 0.6 - 0.9 cm LV Relative Wall Thickness 0.6 RV Internal Dim ED PLAX 3.2 cm LVOT Diameter 2.4 cm Aortic Root Diameter 3.9 cm LA Systolic Diameter LX 3.8 cm 3.0 - 4.0 / 2.7 - 3.8 cm DOPPLER AV Peak Velocity 535.0 cm/s AV Peak Gradient 114.5 mmHg AV Mean Gradient 75.0 mmHg AV Velocity Time Integral 156.0 cm LVOT Peak Velocity 66.9 cm/s LVOT Peak Gradient 1.8 mmHg LVOT Velocity Time Integral 18.2 cm AV Area Cont Eq vti 0.5 cm AV Area Cont Eq pk 0.6 cm Mitral E Point Velocity 71.1 cm/s Mitral A Point Velocity 81.9 cm/s Mitral E to A Ratio 0.9 LV E' Lateral Velocity 6.3 cm/s Mitral E to LV E' Lateral Ratio 11.2 LV E' Septal Velocity 5.8 cm/s Mitral E to LV E' Septal Ratio 12.4 TR Peak Velocity 212.0 cm/s TR Peak Gradient 18.0 mmHg Right Atrial Pressure 10.0 mmHg Pulmonary Artery Systolic Pressu 28.0 mmHg Right Ventricular Systolic Press 28.0 mmHg PV Peak Velocity 54.9 cm/s PV Peak Gradient 1.2 mmHg FINDINGS LEFT VENTRICLE Normal left ventricular size. Moderate concentric left ventricular hypertrophy. The left ventricular systolic function is normal with an estimated ejection fraction in the range of 60-65%. RIGHT VENTRICLE The right ventricle is mildly dilated. The right ventricular systoilc function is normal. LEFT ATRIUM The left atrial size is normal. RIGHT ATRIUM The right atrial size is normal. ATRIAL SEPTUM Thickened atrial septum is noted with morphological features most consistent with a lipomatous atria l septum. No atrial level shunt is demonstrated by color flow Doppler interrogation. AORTA The aortic root and proximal ascending aorta are normal in size on limited imaging. MITRAL VALVE Moderate mitral annular calcification. AORTIC VALVE Diffuse calcification of the aortic valve. Mild aortic valve regurgitation. Severe aortic valve stenosis. Aortic valve area is 0.53 cm. Aortic valve mean gradient is 75 mmHg. TRICUSPID VALVE There is trace tricuspid valve regurgitation. The estimated pulmonary arterial pressure is 28 mmHg. PULMONARY VALVE No pulmonary valve regurgitation or stenosis. VESSELS The inferior vena cava is normal in size. PERICARDIUM No pericardial effusion. Brendon Dominguez MD, FACC (Electronically Signed) Final Date:15 Dec 2017 16:06
[2017-12-15] MEDS: TAMSULOSIN HCL 0.4 MG CAP PO SCH (23:15)
[2017-12-16] VITALS (18 sets, daily range): BP systolic 104–147; BP diastolic 53–74; PULSE 58–72; RESP 16–19; TEMP 97.5–97.7; O2SAT 93–100
[2017-12-16] MEDS: LEVOTHYROXINE SODIUM 100 MCG TAB PO SCH (06:46)
[2017-12-16] MEDS ORDERED: HEPARIN-NS/PF INJ 1,000 ML ONE (07:06)
[2017-12-16] MEDS ORDERED: VERAPAMIL HCL 5 MG/2 ML VIAL ONE (07:10)
[2017-12-16] MEDS ORDERED: HEPARIN SODIUM - IV 10,000 UNITS/10 ML VIAL ONE (07:10)
[2017-12-16] MEDS ORDERED: NITROGLYCERIN INJ 5 ML ONE (07:10)
[2017-12-16 07:28] LABS: AUTOMATED NEUTROPHIL # 3.5 TH/MM3 (1.8-7.7); BASOPHIL % 0.5 % (0.0-2.0); EOSINOPHIL # 0.1 TH/MM3 (0-0.4); EOSINOPHIL % 1.7 % (0.0-4.0); HEMATOCRIT 35.5 % (39.0-51.0); HEMOGLOBIN 11.9 GM/DL (13.0-17.0); LYMPH % 23.7 % (9.0-44.0); LYMPHOCYTE # 1.3 TH/MM3 (1.0-4.8); MEAN CELL VOLUME 88.8 FL (80.0-100.0); MEAN CORPUSCULAR HEMOGLOBIN 29.8 PG (27.0-34.0); MEAN CORPUSCULAR HGB CONC 33.6 % (32.0-36.0); MEAN PLATELET VOLUME 8.9 FL (7.0-11.0); MONO % 9.4 % (0.0-8.0); MONOCYTE # 0.5 TH/MM3 (0-0.9); NEUT % 64.7 % (16.0-70.0); PLATELET COUNT 143 TH/MM3 (150-450); WHITE BLOOD COUNT 5.4 TH/MM3 (4.0-11.0)
[2017-12-16] MEDS ORDERED: MIDAZOLAM HCL 2 MG/2 ML VIAL ONE (07:28)
[2017-12-16 07:57] LABS: BICARBONATE 27.2 MEQ/L (21.0-32.0); CALCIUM 8.9 MG/DL (8.5-10.1); CREATININE 1.24 MG/DL (0.60-1.30)
[2017-12-16] MEDS: INSULIN ASPART SUPPLEMENTAL SCALE SQ SCH ×4 (08:00→20:29)
[2017-12-16] MEDS ORDERED: SODIUM CHLOR 0.9% 1000 ML INJ 1,000 ML IV SCH (08:28)
--- NOTE | 2017-12-16 08:28 | CATHPROC ---
[email or web address] HIS Report Study Information Study Number Scheduled Start Study Start [id number] 12/16/2017 Dec 16 2017 7:20AM Referring Institution Admit Source Facility Department 1 Emergency department [facility] - [facility] Physician and Clinical Staff Initial Charlie Centeno Nerve Specialist Federico iHll,NITESH Recorder Edith Sullivan,RT(R) Recorder Tere Hernandez ,RT(R) Scrub Mik Marie RCIS(BS) Procedures Performed Procedure Location (Site) Vessel Name Coronary Angiograms LCA Left Coronary Coronary Angiograms RCA Right Coronary L Heart Cath Equipment Time Presetter Operator Description Size Mfg Part Number Used/Scraped TRANSDUCER, TRUWAVE [id number] 07:21 JACQUES LOYA * Used W/STOCKCOCK *[id number] *[id number] 07:21 MALLINCKRODT SYRINGE, ANGIOMAT 150ML 150ML *[id number] Used 2SUB [id number] 07:21 Scandid PACK, CCL CUSTOM * Used *[id number] 07:21 Scandid SUPPORT, ARTERIAL ADULT 62296 *[id number] Used [id number] 07:21 [employer] PACER PEN, SKIN DUAL W/ RULER * Used *[id number] BAND, RADIAL COMPRESSION TR [id number] 08:18 [employer] MEDICAL 29CM Used LARGE 29 *[id number] 07:21 [employer]trust WIRE, EXCHANGE 260CM 3MMJ 260CM Used *[id number] 07:21 NAMIC MANIFOLD, 4 PORT * Used *[id number] 08:00 NYCOMED OMNIPAQUE, 350 MG, 150ML 150ML [id number] Used [id number] 07:21 [employer] BLANKET,WARM AIR CCL * Used *[id number] 07:21 [employer] JELCO NEEDLE 4056 *[id number] Used CATHETER, FR5 OPTITORQUE [id number] 08:00 [employer] MEDICAL FR 5 Used RADIAL TIG 4.0 *[id number] SHEATH, FR6 TRANSRADIAL RM*[id number] 07:21 [employer] MEDICAL FR 6 Used SLENDER 10CM *[id number] History: Current Medications Medication Dosage/Unit Route Frequency Last Date/Time Taken LIPITOR Beta Kourtney ASA CRESTOR Synthroid History: Risk Factors Family History of Hypertension Dyslipidemia Previous DE Previous Heart Failure Premature CAD Yes Yes No No No Prior Valve Prior PCI Prior CABG Surgery No No No Cerebrovascular Peripheral Artery Chronic Lung On Dialysis Diabetes Diabetes Therapy Disease Disease Disease No No No No Yes Oral History: Stress Tests Stress or Imaging Studies Performed No History: Other Current Smoker No Labs Hgb (g/dl) Hct (%) WBC (l/cumm) Platelets (thousands) 11.60-17.00 35.00-51.00 4.00-11.00 150.00-450.00 12.7 37.6 4.9 139 Glucose (mg/dl) BUN (mg/dl) Creatinine (mg/dl) BUN:Creatinine (1:x) 74.00-106.00 7.00-18.00 0.50-1.30 10.00-20.00 103 26 1.2 21.7 Na (meq/l) K (meq/l) 136.00-145.00 3.50-5.10 139 4.6 INR (PTT:PT) 0.90-1.10 1 Troponin I (ng/ml) CPK (u/l) CPK-MB (ng/ML) 0.02-0.05 26.00-308.00 0.50-3.60 0.02 28 Not Drawn Medication Medication Total Dose (Bolus/Oral) Medication Total Dosage/Unit 1% XYLOCAINE 5 mL RADIAL COCKTAIL 5 mL (Bolus) VERSED 1 mg Medications (Bolus/Oral) Medication Time Given Dosage/Unit Administered By Reason VERSED 12/16/2017 7:54:48 AM 1 mg Federico Hill 1 mg VERSED given in lab by Federico Hill, RN in Left Antecubital via Peripheral IV. Ordered by Charlie Ortega. 1% XYLOCAINE 12/16/2017 7:55:01 AM 5 mL Charlie Ortega 5 mL 1% XYLOCAINE given in lab by Charlie Ortega in Right Radial via Subcutaneous. Ntg 200mcg Verapamil 2.5mg Heparin RADIAL COCKTAIL 12/16/2017 7:58:36 AM 5 mL (Bolus) Charlie Ortega 2500U 5 mL (Bolus) RADIAL COCKTAIL given in lab by Charlie Ortega in Right Radial via Radial. Using [Solutio n Name]. Reason: Ntg 200mcg Verapamil 2.5mg Heparin 2500U. Medication (Drip) Medication Time Given Dosage/Unit Concentration/Unit Diluent (ml) Solution IV Solutions 12/16/2017 7:27:56 AM 50 mL (IV) NaCl .9 IV Solutions given in lab by Federico Hill RN in Left Antecubital via Peripheral IV. Pump/Drip Flow u sing NaCl .9. Initial Case Assessment Cardiovascular HR Rhythm NIBP Chest Pain 62 sr 137/67 0 Edema Present Skin color Skin None Normal Warm Dry Circulatory - Right Pulses Dorsalis Pedis Femoral Radial 2 2 2 Scale (0,1,2,3,4,d) Circulatory - Left Pulses Dorsalis Pedis Femoral Radial 2 2 Scale (0,1,2,3,4,d) Neurological State Oriented to time-place- Alert Moves all extremities person Respiration - General Respiration Rate SpO2 (%) O2 (lpm) (B/min) 17 99 3 Chronological Log Time Study Chronological Log 7:18:18 Patient arrived via Bed. 7:27:12 Reference ECG taken 7:27:25 Patient Name, D.O.B, / Armband Verified By R.N. 7:27:26 Consent signed by the physician and the patient and verified by the [facility] [facility] staff. 7:27:26 Pre-op and post- op instructions given; patient acknowledges understanding of instructions. 7:27:27 Verbal Stimulation=2 Physical Stimulation=2 Airway=2 Respiration=2 TOTAL=8. (0=absent, 1=ann ited, 2=present) Vitals capture started with the following parameters, Patient=Adult, Interval=5 min, Initial Pre brtli=593 mmHg, 7:27:28 Deflation Rate=5 mmHg, Cuff placed on Left Arm 7:27:31 Presedation assessment performed by [facility] [facility] [facility] RN. 7:27:32 Allens test performed on the right radial and ulnar artery. 7:27:34 Patient has been NPO for More than 6Hrs. 7:27:35 Skin Breakdown- none per patient 7:27:35 Patient Warmer Placed on the Table. 7:27:36 Tonie Prominences Protected 7:27:37 IV Warmer Connected To Patient. 7:27:38 A # 20 IV was noted in the Antecubital (left). Grade = 0 Placed in engineering lab technician by NITESH Barney 7:27:56 IV Solutions given in lab by Federico Hill, RN in Left Antecubital via Peripheral IV. Pump/Dr ip Flow using NaCl .9. 7:28:09 History and physical on the chart or being dictated. Assessment: Initial Case, HR=62 BPM, Rhythm=sr, RGPB=933/67 mmhg, Chest Pain=0, Edema=None, [place] r=Normal, Skin = Warm, Dry Right Pulses: Herman Ped=2, Femoral=2, Radial=2 7:28:10 Left Pulses: Herman Ped=2, Femoral=2 Neurological: State=Alert, Ox3, MURILLO Respiration: Resp=17 B/min, SpO2=99 %, O2=3 lpm 7:28:36 Right Radial and right groin prepped with 2% chlorhexidine, and draped after a 3 min. waitin g time. 7:29:20 HR=62 bpm, RHUJ=458/67 mmhg, SpO2=98.0 %, Resp=16 B/min 7:29:42 MD paged 7:33:11 HR=63 bpm, ZRVN=465/41 mmhg, SpO2=97.0 %, Resp=13 B/min, Pain=0, [place]=10, [place]=2 7:35:35 Pressure channel 1 zeroed. 7:38:04 HR=62 bpm, PTTK=779/68 mmhg, SpO2=98.0 %, Resp=13 B/min, Pain=0, Sabas=10, [place]=2 7:43:05 HR=60 bpm, NMGM=164/70 mmhg, SpO2=99.0 %, Resp=16 B/min, Pain=0, [place]=10, [place]=2 7:48:06 HR=62 bpm, VBQN=081/70 mmhg, SpO2=99.0 %, Resp=18 B/min, Pain=0, [place]=10, [place]=2 7:48:27 MD arrived. 7:52:57 HR=60 bpm, WCXI=250/72 mmhg, SpO2=99.0 %, Resp=17 B/min Time Out. Correct patient, correct procedure, correct physician, labs, allergies, and equipment verified with engineering lab technician 7:54:18 team present. Fire risk assesment completed (see hard stop sheet for coding). Time Out Concu rred by MD and individual staff in procedure. 7:54:36 Case Start 7:54:48 1 mg VERSED given in lab by Federico Hill RN in Left Antecubital via Peripheral IV. Ordered by Charlie Ortega. 7:55:01 5 mL 1% XYLOCAINE given in lab by Charlie Ortega in Right Radial via Subcutaneous. 7:57:43 Access site was Right Radial Artery. A SHEATH, FR6 TRANSRADIAL SLENDER 10CM FR 6 was advanced into the Radial (right) using the Awa garland 7:57:56 technique. 5 mL (Bolus) RADIAL COCKTAIL given in lab by Charlie Ortega in Right Radial via Radial. Using [ Solution Name]. 7:58:36 Reason: Ntg 200mcg Verapamil 2.5mg Heparin 2500U. 7:58:43 HR=60 bpm, RUNQ=097/62 mmhg, SpO2=97.0 %, Resp=21 B/min A CATHETER, FR5 OPTITORQUE RADIAL TIG 4.0 FR 5 was advanced over a wire. OMNIPAQUE, 350 MG, 15 0ML 150ML 7:59:35 was used for injections. 8:03:09 HR=72 bpm, NIBP=97/53 mmhg, SpO2=97.0 %, Resp=21 B/min Recorded Pressure: Ao, HR=75, Condition=Condition 1 8:03:25 (Aorta) Ao 91/61/74 8:03:42 The LCA was injected and visualized at various angles. OMNIPAQUE, 350 MG, 150ML 150ML use d. 8:07:28 The RCA was injected and visualized at various angles. OMNIPAQUE, 350 MG, 150ML 150ML use d. 8:08:00 HR=73 bpm, IXUW=870/63 mmhg, SpO2=96.0 %, Resp=23 B/min After removing the current catheter a JL 3.5 INFINITI CATHETER FR 6 was advanced over a WIRE, EXCHANGE 260CM 8:12:01 3MMJ 260CM. 8:13:03 HR=71 bpm, GPNZ=991/70 mmhg, SpO2=97.0 %, Resp=22 B/min 8:16:33 The LCA was injected and visualized at various angles. OMNIPAQUE, 350 MG, 150ML 150ML use d. 8:16:41 Catheter was removed 8:16:45 Case End 8:18:04 HR=76 bpm, IUFU=542/76 mmhg, SpO2=98.0 %, Resp=16 B/min Radial Compression Device Used. 15 mLs of air placed in BAND, RADIAL COMPRESSION TR LARGE 29 2 9CM. Affected 8:19:36 hand 97 % O2 saturation. 8:23:07 Vitals capture stopped. 8:24:09 No case complications noted. 8:24:12 Holding Area notified. 8:24:20 Bedside Report will be given. 8:24:28 A Left Heart Cath was performed. 8:24:29 Patient moved to bed. End Study - Contrast Media Used In Study Contrast Total Opened (mL) Total Used (mL) Total Wasted (mL) Omnipaque 140 140 0 End Study - Maximum Contrast Load Max Contrast Load (mL) 491.7 End Study - Radiation Exposure Fluoro Time (minutes) 4.9 End Study - Patient Disposition Complications Transferred To Interventional Outcome No Telemetry Bed No attempt made
[2017-12-16] MEDS ORDERED: MISC INFORMATION XX ONE (08:30)
[2017-12-16] MEDS ORDERED: SODIUM CHLORIDE 0.9% FLUSH 10 ML FLUSH IV FLUSH PRN (08:30)
--- NOTE | 2017-12-16 08:53 | MA ---
cc: Charlie Ortega MD DATE: 12/16/2017 PROCEDURE PERFORMED: Coronary angiography, right radial arterial approach. DESCRIPTION OF PROCEDURE: The patient was brought to cardiac catheterization lab in a fasting state. Additional IV Versed for sedation. Using 1 percent lidocaine for local anesthesia, a Terumo slender sheath was inserted in the right radial artery. Coronary angiography was then completed using a [place] catheter. Additional angiograms of the left coronary artery were performed with a 6-[place] left 3.5 Robert catheter. The films were reviewed. I decided he did need coronary revascularization. At this point, I would refer him for TAVR. FINDINGS: HEMODYNAMICS: The aortic pressure is 91/61 with a mean of 74. FLUOROSCOPY: Fluoroscopy shows severe calcification of the coronaries and the aortic valve. CORONARY ANGIOGRAPHY: The left main coronary artery is large and normal appearing. Slight irregularities only. The LAD has calcific proximal and mid disease approximately about 50% in the mid. Appears somewhat long and about 50%. The circumflex artery gives off a large proximal obtuse marginal branch, which is normal. Distal circumflex for the vessel is small and has probably a 70% stenosis, but it tapers down where the vessel is too small to intervene upon The right coronary artery is dominant. This vessel has about a 50% eccentric proximal stenosis and a 50% focal distal stenosis and diffuse irregularities. CONCLUSIONS: 1. Known severe aortic stenosis. 2. Two-vessel disease, but I think the best approach would be to treat medically. RECOMMENDATIONS: Evaluation for TAVR. We will consult Dr. Shepard. Charlie Ortega MD VEW/DL , 08:26 AM , 08:52 AM
[2017-12-16] MEDS: FINASTERIDE 5 MG TAB PO SCH (09:00)
[2017-12-16] MEDS: ATENOLOL 100 MG TAB PO SCH (09:00)
[2017-12-16] MEDS: ASPIRIN 325 MG TAB PO SCH (09:00)
[2017-12-16] MEDS: ATORVASTATIN 40 MG TAB PO SCH (09:00)
[2017-12-16] MEDS: ENALAPRIL MALEATE 10 MG TAB PO SCH (09:00)
[2017-12-16] MEDS: SODIUM CHLORIDE 0.9% FLUSH 10 ML FLUSH IV FLUSH SCH ×2 (09:00→20:53)
[2017-12-16] MEDS: CHLORTHALIDONE 50 MG TAB PO SCH (09:00)
[2017-12-16] MEDS: ACETAMINOPHEN/HYDROcodone 325 MG/5 MG TAB PO PRN (10:02)
--- NOTE | 2017-12-16 10:08 | PD.FRAIL ---
Date: Dec 16, 2017 Height: 170.18 cm Weight: 118 kg BMI: 40.7 Assessment Performed: Inpatient Days in Hospital at Exam: 2 Albumin 12/15/17 10:14: Blood Urea Nitrogen 26, Creatinine 1.19, Random Glucose 103, Total Protein 7.0, Albumin 3.5, Calcium Level 9.1, Alkaline Phosphatase 78, Aspartate Amino Transf (AST/SGOT) 24, Alanine Aminotransferase (ALT/SGPT) 26, Total Bilirubin 0.5, Sodium Level 139, Potassium Level 4.6, Chloride Level 103, Carbon Dioxide Level 27.5 Pass/Fail: Pass [place] Activities Daily Living [place] ADL Score: Bathing(bathes self/help in single area): [place] (0), Dressing(gets/puts clothes on self): [place] (1), Toileting(goes without help): [place] ( 1), [facility]assisted [facility] [place] (1), Continence( complete self-control): [place] (1), Feeding(self, prep by another allowed) : [place] (1), Total: 5 Pass/Fail: Pass Sap Mobility Architect Strength Grasp 1: 22 Grasp 2: 26 Grasp 3: 22 Pass/Fail: Fail 15-Foot Walk Pass/Fail: Fail (UNABLE TO SAFELY WALK AT THIS TIME, USES CANE AT HOME AT SLOW PACE) Total Frailty Total Frailty (out of 4): 2 Frailty Index Score Reference Sap Mobility Architect Strength: BMI: <=24 Cutoff for finished cloth examiner strength(Kg): <=29 BMI: 24.1-28 Cutoff for finished cloth examiner strength(Kg): <=30 BMI: >28 Cutoff for finished cloth examiner strength(Kg): <=32 15-Foot Walk: Height: <=173 cm 15-Foot Walk Cutoff Time: >=7 seconds Height: >173 cm 15-Foot Walk Cutoff Time: >=6 seconds Jessica Cruz RN Dec 16, 2017 10:08
[2017-12-16] MEDS: SODIUM CHLOR 0.9% 1000 ML INJ 1,000 ML IV SCH (10:54)
--- NOTE | 2017-12-16 14:24 | PD.CAR.PN ---
CVT Progress Note Subjective/Hospital Course: pt seen and evaluated, full consult to follow sts data discussed with pt and family RISK SCORES About the STS Risk Calculator Procedure: AV Replacement Risk of Mortality: 4.98% Morbidity or Mortality: 24.822% Long Length of Stay: 12.659% Short Length of Stay: 20.51% Permanent Stroke: 1.554% Prolonged Ventilation: 16.17% DSW Infection: 0.571% Renal Failure: 10.529% Reoperation: 8.46% Objective: Vital Signs Date Time Temp Pulse Resp B/P (MAP) Pulse Ox O2 Delivery O2 Flow Rate FiO2 12/16/17 12:01 66 12/16/17 11:00 58 12/16/17 10:35 97.7 72 19 129/72 (91) 100 12/16/17 08:38 94 Nasal Cannula 2.00 12/16/17 03:34 97.5 63 18 104/53 (70) 93 12/15/17 23:03 98.0 59 18 118/56 (76) 95 12/15/17 21:12 21 12/15/17 16:30 59 12/15/17 15:57 97.6 67 16 121/54 (76) 94 Labs: Laboratory Tests Test 12/16/17 06:45 White Blood Count 5.4 TH/MM3 (4.0-11.0) Red Blood Count 4.00 MIL/MM3 (4.50-5.90) Hemoglobin 11.9 GM/DL (13.0-17.0) Hematocrit 35.5 % (39.0-51.0) Mean Corpuscular Volume 88.8 FL (80.0-100.0) Mean Corpuscular Hemoglobin 29.8 PG (27.0-34.0) Mean Corpuscular Hemoglobin Concent 33.6 % (32.0-36.0) Red Cell Distribution Width 14.0 % (11.6-17.2) Platelet Count 143 TH/MM3 (150-450) Mean Platelet Volume 8.9 FL (7.0-11.0) Neutrophils (%) (Auto) 64.7 % (16.0-70.0) Lymphocytes (%) (Auto) 23.7 % (9.0-44.0) Monocytes (%) (Auto) 9.4 % (0.0-8.0) Eosinophils (%) (Auto) 1.7 % (0.0-4.0) Basophils (%) (Auto) 0.5 % (0.0-2.0) Neutrophils # (Auto) 3.5 TH/MM3 (1.8-7.7) Lymphocytes # (Auto) 1.3 TH/MM3 (1.0-4.8) Monocytes # (Auto) 0.5 TH/MM3 (0-0.9) Eosinophils # (Auto) 0.1 TH/MM3 (0-0.4) Basophils # (Auto) 0.0 TH/MM3 (0-0.2) CBC Comment DIFF FINAL Differential Comment Blood Urea Nitrogen 28 MG/DL (7-18) Creatinine 1.24 MG/DL (0.60-1.30) Random Glucose 116 MG/DL (74-106) Calcium Level 8.9 MG/DL (8.5-10.1) Sodium Level 139 MEQ/L (136-145) Potassium Level 4.5 MEQ/L (3.5-5.1) Chloride Level 103 MEQ/L (98-107) Carbon Dioxide Level 27.2 MEQ/L (21.0-32.0) Anion Gap 9 MEQ/L (5-15) Estimat Glomerular Filtration Rate 56 ML/MIN (>89) Result Diagram: 12/16/1745 12/16/1745 (1) Morbid obesity (2) Aortic stenosis Plan: echo pending. Suspect severe. Likely TAVR candidate (3) Coronary artery disease Plan: Cardiac cath in AM (4) Chest pain Melodie Bertrand Dec 16, 2017 14:24
--- NOTE | 2017-12-16 15:18 | HHI.PR ---
Subjective Remarks Follow-up dyspnea, aortic stenosis. Patient had cardiac catheterization today. Cardiothoracic surgery has been consulted for aortic valve replacement. The patient has no physical complaints at this time. States that he feels "good". No chest pain or dyspnea today. Objective Vitals Vital Signs Date Time Temp Pulse Resp B/P (MAP) Pulse Ox O2 Delivery O2 Flow Rate FiO2 12/16/17 15:01 61 18 112/54 (73) 95 12/16/17 12:01 66 12/16/17 11:00 58 12/16/17 10:35 97.7 72 19 129/72 (91) 100 12/16/17 08:38 94 Nasal Cannula 2.00 12/16/17 03:34 97.5 63 18 104/53 (70) 93 12/15/17 23:03 98.0 59 18 118/56 (76) 95 12/15/17 21:12 21 12/15/17 16:30 59 12/15/17 15:57 97.6 67 16 121/54 (76) 94 Result Diagram: 12/16/17 0645 12/16/17 [address] Angiography 12/14/17 1033 Signed Impressions: CONCLUSION: 1. No evidence of pulmonary embolism. 2. Coronary artery calcifications. Chest X-Ray 12/14/17 0936 Signed Impressions: CONCLUSION: Moderate compensated the baby cardiomegaly Consolidative changes left base. Renal Ultrasound 12/14/17 0000 Signed Impressions: CONCLUSION: 1. Unremarkable bilateral renal ultrasound for patient's age. Carotid Artery Ultrasound 12/14/17 0000 Signed Impressions: CONCLUSION: 1. Right Internal Carotid Artery: Findings indicate <50% stenosis. 2. Left Internal Carotid Artery: Findings indicate <50% stenosis. Objective Remarks General: Elderly male in no acute distress. Heart: Regular rate and rhythm. 3/6 aortic stenosis murmur. Lungs: Clear to auscultation bilaterally. No wheezes, rales, or rhonchi. Breathing is nonlabored. Abdomen: Soft, nontender, nondistended. Extremities: Bilateral lower extremity lymphedema. Psych: Alert and oriented. Neuro: Normal speech. No focal deficits noted. Procedures None Urinary Catheter: No Vascular Central Line Catheter: No A/P Problem List: (1) Chest pain ICD Code: R07.9 - Chest pain, unspecified (2) Acute kidney injury ICD Code: N17.9 - Acute kidney failure, unspecified (3) Diabetes mellitus ICD Code: E11.9 - Type 2 diabetes mellitus without complications (4) Hyperlipidemia ICD Code: E78.5 - Hyperlipidemia, unspecified (5) Morbid obesity ICD Code: E66.01 - Morbid (severe) obesity due to excess calories (6) Aortic stenosis ICD Code: I35.0 - Nonrheumatic aortic (valve) stenosis Assessment and Plan 1. Dyspnea, syncope: Patient has severe aortic stenosis. Appreciate cardiology recommendations. Continue telemetry monitoring. Continue aspirin. Status post cardiac catheterization. Appreciate cardiothoracic surgery recommendations. Continue workup for TAVR. 2. Hypertension: Continue atenolol, chlorthalidone, Vasotec. 3. Diabetes mellitus: Monitor Accu-Cheks and cover with sliding scale insulin. 4. Hyperlipidemia: Continue statin. 5. Chronic lower extremity lymphedema: Stable. 6. Acute kidney injury: Possibly a component of chronic kidney disease as well , but no prior labs are available at this time. Creatinine stable. Monitor labs. 7. Hypothyroidism: Continue Synthroid. 8. DVT prophylaxis: Lovenox, SCDs. Discharge Planning Pending cardiology and cardiothoracic surgery clearance. José Boyce MD Dec 16, 2017 15:18
--- NOTE | 2017-12-16 16:16 | MB ---
cc: Melodie Bertrand Jacqueline R ARNP Rao, Surya P MD DATE: 12/16/2017 DATE OF : 1935 HISTORY OF PRESENT ILLNESS: An 82-year-old male, patient of Dr. Grove, Dr. James Aguirre, with extreme comorbidities, known severe aortic stenosis, has refused intervention on his valve in the past. Apparently was sitting at home at the breakfast table, became short of breath, which got severe to the point where he nearly passed out. The ER doctor reported he had chest tightness, but per the notes, when Dr. Ortega evaluated him, he did not have chest discomfort. He is quite sedentary at home. He uses a walker to get around. They did a 2-D echo, which showed aortic valve area 0.53 with a mean gradient of 75, moderate concentric left ventricular hypertrophy, ejection fraction 60-65%. He then underwent cardiac catheterization by Dr. Ortega, which showed the LAD having proximal and mid-disease of 50%, the distal circumflex had 70% stenosis; however, it was felt by Cardiology that best approach would be to treat medically. We were, however, consulted to evaluate for candidacy for transcatheter aortic valve replacement. PAST MEDICAL HISTORY: Includes morbid obesity with a BMI of 41, type 2 diabetes, chronic lymphedema, hyperlipidemia, hypertension, neuropathy, sleep apnea, benign prostatic hypertrophy and hypothyroidism. PAST SURGICAL HISTORY: No known. ALLERGIES: NO KNOWN ALLERGIES. HOME MEDICATIONS: Quite extensive, to include: 1. Flomax 0.8. 2. Crestor 20 daily 3. Atenolol chlorthalidone one daily. 4. Enalapril 10. 5. Aspirin 81. 6. [place] p.r.n. 7. Metformin 500. 8. Levothyroxine. 9. Finasteride. REVIEW OF SYSTEMS: As above in the HPI, the 12 systems unremarkable. PHYSICAL EXAMINATION: VITAL SIGNS: Blood pressure 130/70, heart rate 72, afebrile. GENERAL: Awake, alert, in no acute distress. HEENT: Head is normocephalic, atraumatic. Pupils equal and reactive. Oral mucosa pink, moist. NECK: Supple. No JVD. CARDIOVASCULAR: Sounds S1, S2, grade 3/6 systolic murmur ,heard best at the left sternal border. LUNGS: Diminished at the bases, otherwise clear to auscultation. EXTREMITIES: Reveal significant lower extremity extreme edema. Difficult to palpate pulses due to the extreme edema; however, his nail beds on his feet have good capillary refill. LABORATORY DATA: Hemoglobin 11.9, hematocrit 34, white cell count of 5.4, platelet count of 143. Sodium 139, potassium 4.5, BUN of 28, creatinine 1.24. Troponins are negative. TSH is 3.2. INR 1.0. Urinalysis unremarkable. Albumin level 3.5. Cardiothoracic scorin/4. He failed the gem carver strength and he failed the walk test. IMAGING STUDIES: He also had a carotid ultrasound, bilateral internal carotids less than 50% stenosis. CT angiogram: No evidence of pulmonary emboli. Positive for coronary artery calcifications. IMPRESSION: This is an 82-year-old male with multiple comorbidities with severe aortic stenosis with a valve area of 0.53. The patient's other morbidity and mortality risks include morbid obesity with a body mass index of 41, diabetes mellitus type 2, chronic lymphedema. The patient had a failed walk test. Also, sleep apnea, coronary artery disease. RECOMMENDATIONS: Secondary to his above mortality and his STS risk score of 4.98, recommend a transcatheter aortic valve replacement. TICO Barney MD JRT/MONIQUE , 02:31 PM , 04:15 PM
[2017-12-16] MEDS: TAMSULOSIN HCL 0.4 MG CAP PO SCH (20:52)
[2017-12-17] VITALS (32 sets, daily range): BP systolic 92–137; BP diastolic 52–80; PULSE 58–80; RESP 16–20; TEMP 97.5–98.7; O2SAT 93–98
[2017-12-17] MEDS: ACETAMINOPHEN/HYDROcodone 325 MG/5 MG TAB PO PRN ×2 (00:43→20:46)
[2017-12-17] MEDS: LEVOTHYROXINE SODIUM 100 MCG TAB PO SCH (06:19)
[2017-12-17] MEDS: INSULIN ASPART SUPPLEMENTAL SCALE SQ SCH ×4 (08:00→20:42)
[2017-12-17] MEDS: ATORVASTATIN 40 MG TAB PO SCH (08:50)
[2017-12-17] MEDS: ATENOLOL 100 MG TAB PO SCH (08:51)
[2017-12-17] MEDS: ASPIRIN 325 MG TAB PO SCH (08:51)
[2017-12-17] MEDS: FINASTERIDE 5 MG TAB PO SCH (08:51)
[2017-12-17] MEDS: CHLORTHALIDONE 50 MG TAB PO SCH (08:51)
[2017-12-17] MEDS: ENALAPRIL MALEATE 10 MG TAB PO SCH (08:51)
[2017-12-17] MEDS: SODIUM CHLORIDE 0.9% FLUSH 10 ML FLUSH IV FLUSH SCH ×2 (08:52→20:43)
--- NOTE | 2017-12-17 09:53 | PD.CARD.PN ---
Subjective Subjective Remarks No complaints. No chest pain or dyspnea episode Objective Medications Current Medications Medications (Trade) Dose Ordered Sig/Gume Route Start Time Stop Time Status Last Admin (Zofran Inj) 4 mg Q6H PRN IVP 12/14/17 15:30 (Morphine Inj) 2 mg Q3H PRN IV PUSH 12/14/17 15:30 (Narcan Inj) 0.4 mg UNSCH PRN IV PUSH 12/14/17 15:30 (Milk Of Magnesia Liq) 30 ml Q12H PRN PO 12/14/17 15:30 (Nitrostat Sl) 0.4 mg Q5M PRN SL 12/14/17 15:30 (Aspirin) 325 mg DAILY PO 12/15/17 09:00 12/17/17 08:51 (Vasotec) 10 mg DAILY PO 12/15/17 09:00 12/17/17 08:51 (Proscar) 5 mg DAILY PO 12/15/17 09:00 12/17/17 08:51 (Synthroid) 100 mcg DAILY@0600 PO 12/15/17 06:00 12/17/17 06:19 (Flomax) 0.8 mg HS PO 12/14/17 21:00 12/16/17 20:52 (Lipitor) 40 mg DAILY PO 12/15/17 09:00 12/17/17 08:50 (D50w (Vial) Inj) 50 ml UNSCH PRN IV PUSH 12/14/17 16:15 (Glucagon Inj) 1 mg UNSCH PRN OTHER 12/14/17 16:15 (NovoLOG SUPPLEMENTAL SCALE) 1 ACHS SLIDING SCALE SQ 12/14/17 17:00 12/16/17 11:54 (Tenormin) 100 mg DAILY PO 12/15/17 09:00 12/17/17 08:51 (Hygroton) 25 mg DAILY PO 12/15/17 09:00 12/17/17 08:51 (Pill Splitter) 1 ea UNSCH PRN OTHER 12/14/17 21:30 12/15/17 09:54 Sodium Chloride 1,000 ml @ 30 mls/hr Q24H IV 12/15/17 10:02 12/20/17 10:01 (Benadryl) 50 mg PROSPECT MANAGER PO 12/15/17 10:15 12/19/17 10:14 (Valium) 5 mg PROSPECT MANAGER PO 12/15/17 10:15 12/19/17 10:14 (Tylenol) 650 mg Q6H PRN PO 12/15/17 13:00 (Reasnor 5-325 Mg) 1 tab Q4H PRN PO 12/15/17 13:00 12/17/17 00:43 (NS Flush) 2 ml BID IV FLUSH 12/16/17 09:00 12/17/17 08:52 (NS Flush) 2 ml UNSCH PRN IV FLUSH 12/16/17 08:30 Vital Signs / I&O Vital Signs Date Time Temp Pulse Resp B/P (MAP) Pulse Ox O2 Delivery O2 Flow Rate FiO2 12/17/17 09:23 97.6 67 18 130/65 (86) 96 12/17/17 09:00 73 12/17/17 08:00 66 12/17/17 07:00 64 12/17/17 06:00 60 12/17/17 05:00 58 12/17/17 04:00 64 12/17/17 03:45 76 16 118/65 (82) 96 12/17/17 03:00 64 12/17/17 02:00 62 12/17/17 01:00 74 12/17/17 00:00 64 12/16/17 23:23 65 16 147/74 (98) 97 12/16/17 23:00 64 12/16/17 22:00 62 12/16/17 21:26 97 21 12/16/17 21:00 64 12/16/17 20:00 66 12/16/17 19:50 97.7 69 16 140/70 (93) 97 12/16/17 19:00 69 12/16/17 18:01 70 12/16/17 17:09 94 Nasal Cannula 2.00 12/16/17 17:00 62 12/16/17 15:01 59 12/16/17 15:01 61 18 112/54 (73) 95 12/16/17 14:00 62 12/16/17 13:00 60 12/16/17 12:01 66 12/16/17 11:00 58 12/16/17 10:35 97.7 72 19 129/72 (91) 100 I/O 6/1/12/16/17 12/16/17 12/17/17 12/17/17 12/17/17 07:00 15:00 23:00 07:00 15:00 23:00 Intake Total 240 ml 240 ml Output Total 700 ml 550 ml Balance -460 ml -310 ml Intake Oral 240 ml 240 ml Output Urine Total 700 ml 550 ml # Bowel Movements 0 Physical Exam Alert, extreme morbid obesity chest diminished BS CV S1S2 RRR, 2/6 SAI suggestive of severe Abdomen soft 2+ LE edema, intact right radial pulse Laboratory Laboratory Tests Test 12/16/17 20:30 Nasal Screen MRSA (PCR) MRSA DETECTED Assessment and Plan Problem List: (1) Morbid obesity ICD Codes: E66.01 - Morbid (severe) obesity due to excess calories (2) Aortic stenosis ICD Codes: I35.0 - Nonrheumatic aortic (valve) stenosis Plan: Plan is for TAVR. Permanent Comment: Severe Last Edited By: Charlie Ortega MD on Dec 17, 2017 09 :52 (3) Coronary artery disease ICD Codes: I25.10 - Atherosclerotic heart disease of [place] coronary artery without angina pectoris Plan: medical therapy Assessment and Plan CV consulted. TAVR at some pount in time - ? this admit? Problem Qualifiers (1) Aortic stenosis: Qualified Codes: I35.0 - Nonrheumatic aortic (valve) stenosis Charlie Ortega MD Dec 17, 2017 09:53
[2017-12-17] MEDS: SODIUM CHLOR 0.9% 1000 ML INJ 1,000 ML IV SCH (10:02)
--- NOTE | 2017-12-17 12:00 | PD.CONS ---
History of Present Illness Service CT surgery Consult Requested By Dr. Ortega Reason for Consult Severe symptomatic aortic stenosis Primary Care Physician James Aguirre M.D. Diagnoses: (1) Pre-syncope (2) Diastolic heart failure (3) Aortic stenosis (4) Coronary artery disease (5) Morbid obesity History of Present Illness 82-year-old male, patient of Dr. Grove, Dr. James Aguirre, with extreme comorbidities, known severe aortic stenosis, has refused intervention on his valve in the past. He presented with acute respiratory distress and presyncope while eating. He is quite sedentary at home. He uses a walker for ambulation. 2-D echo, shows aortic valve area 0.53 with a mean gradient of 75, moderate concentric left ventricular hypertrophy, ejection fraction 60-65%. He underwent cardiac catheterization by Dr. Ortega, which showed the LAD having proximal and mid-disease of 50%, the distal circumflex had 70% stenosis; however, it was felt by Cardiology that best approach would be to treat medically. He is morbidly obese as well. Cardiothoracic scorin/4. He failed the burial needs salesperson strength and he failed the walk test. IMPRESSION: This is an 82-year-old male with multiple comorbidities with severe aortic stenosis with a valve area of 0.53. The patient's other morbidity and mortality risks include morbid obesity with a body mass index of 41, diabetes mellitus type 2, chronic lymphedema. The patient had a failed walk test. Also, sleep apnea, coronary artery disease. RECOMMENDATIONS: Secondary to his above mortality and his STS risk score of 4.98, recommend a transcatheter aortic valve replacement. Review of Systems Constitutional: COMPLAINS OF: Fatigue, Weight gain, DENIES: Diaphoretic episodes, Fever, Weight loss, Chills, Dizziness, Change in appetite, Night Sweats Endocrine: DENIES: Heat/cold intolerance, Polydipsia, Polyuria, Polyphagia Eyes: DENIES: Blurred vision, Diplopia, Eye inflammation, Eye pain, Vision loss , Photosensitivity, Double Vision Ears, nose, mouth, throat: DENIES: Tinnitus, Hearing loss, Vertigo, Nasal discharge, Oral lesions, Throat pain, Hoarseness, Ear Pain, Running Nose, Epistaxis, Sinus Pain, Toothache, Odynophagia Respiratory: DENIES: Apneas, Cough, Snoring, Wheezing, Hemoptysis, Sputum production, Shortness of breath Cardiovascular: COMPLAINS OF: Chest pain, Dyspnea on Exertion, Lower Extremity Edema, DENIES: Palpitations, Syncope, PND, Orthopnea, Claudication Gastrointestinal: DENIES: Abdominal pain, Black stools, Bloody stools, Constipation, Diarrhea, Nausea, Vomiting, Difficulty Swallowing, Anorexia Musculoskeletal: COMPLAINS OF: Muscle aches, Stiffness, DENIES: Joint pain, Joint Swelling, Back pain, Neck pain Integumentary: DENIES: Abnormal pigmentation, Nail changes, Pruritus, Rash Hematologic/lymphatic: DENIES: Bruising, Lymphadenopathy Immunologic/allergic: DENIES: Eczema, Urticaria Neurologic: COMPLAINS OF: Abnormal gait, Poor Balance, DENIES: Headache, Localized weakness, Paresthesias, Seizures, Speech Problems, Tremor Psychiatric: DENIES: Anxiety, Confusion, Mood changes, Depression, Hallucinations, Agitation, Suicidal Ideation, Homicidal Ideation, Delusions Past Family Social History Allergies: Coded Allergies: No Known Allergies (Verified Allergy, Unknown, 12/14/17) Past Medical History PAST MEDICAL HISTORY: Includes morbid obesity with a BMI of 46, type 2 diabetes, chronic lymphedema, hyperlipidemia, hypertension, neuropathy, sleep apnea, benign prostatic hypertrophy and hypothyroidism. PAST SURGICAL HISTORY: No known. ALLERGIES: NO KNOWN ALLERGIES. HOME MEDICATIONS: Quite extensive, to include: 1. Flomax 0.8. 2. Crestor 20 daily 3. Atenolol chlorthalidone one daily. 4. Enalapril 10. 5. Aspirin 81. 6. [place] p.r.n. 7. Metformin 500. 8. Levothyroxine. 9. Finasteride. Family History Unremarkable Social History Denies tobacco, ETOH He is frail, sedentary and requires assistance to accomplish ADLs Physical Exam Vital Signs Vital Signs Date Time Temp Pulse Resp B/P (MAP) Pulse Ox O2 Delivery O2 Flow Rate FiO2 12/17/17 10:00 68 12/17/17 09:23 97.6 67 18 130/65 (86) 96 12/17/17 09:00 73 12/17/17 08:00 66 12/17/17 07:00 64 12/17/17 06:00 60 12/17/17 05:00 58 12/17/17 04:00 64 12/17/17 03:45 76 16 118/65 (82) 96 12/17/17 03:00 64 12/17/17 02:00 62 12/17/17 01:00 74 12/17/17 00:00 64 12/16/17 23:23 65 16 147/74 (98) 97 12/16/17 23:00 64 12/16/17 22:00 62 12/16/17 21:26 97 21 12/16/17 21:00 64 12/16/17 20:00 66 12/16/17 19:50 97.7 69 16 140/70 (93) 97 12/16/17 19:00 69 12/16/17 18:01 70 12/16/17 17:09 94 Nasal Cannula 2.00 12/16/17 17:00 62 12/16/17 15:01 59 12/16/17 15:01 61 18 112/54 (73) 95 12/16/17 14:00 62 12/16/17 13:00 60 12/16/17 12:01 66 Physical Exam GENERAL: This is a well-nourished, well-developed patient, in no apparent distress. SKIN: No rashes, ecchymoses or lesions. Cool and dry. HEAD: Atraumatic. Normocephalic. No temporal or scalp tenderness. EYES: Pupils equal round and reactive. Extraocular motions intact. No scleral icterus. No injection or drainage. ENT: Nose without bleeding, purulent drainage or septal hematoma. Throat without erythema, tonsillar hypertrophy or exudate. Uvula midline. Airway patent. NECK: Trachea midline. No JVD or lymphadenopathy. Supple, nontender, no meningeal signs. CARDIOVASCULAR: Regular rate and rhythm with 2/6 SAI at the RUSB. RESPIRATORY: Clear to auscultation. Breath sounds equal bilaterally. No wheezes , rales, or rhonchi. GASTROINTESTINAL: Abdomen soft, obese, non-tender, nondistended. No guarding. MUSCULOSKELETAL: Extremities with 2-3+ edema. No joint tenderness, effusion, or edema noted. No calf tenderness. Negative Homans sign bilaterally. NEUROLOGICAL: Awake and alert. Cranial nerves II through XII intact. Motor and sensory grossly within normal limits. Five out of 5 muscle strength in all muscle groups. Normal speech. Laboratory Laboratory Tests Test 12/16/17 20:30 Nasal Screen MRSA (PCR) MRSA DETECTED Result Diagram: 12/16/17 0645 12/16/17 [address] Angiography 12/14/17 1033 Signed Impressions: CONCLUSION: 1. No evidence of pulmonary embolism. 2. Coronary artery calcifications. Chest X-Ray 12/14/17 0936 Signed Impressions: CONCLUSION: Moderate compensated the baby cardiomegaly Consolidative changes left base. Renal Ultrasound 12/14/17 0000 Signed Impressions: CONCLUSION: 1. Unremarkable bilateral renal ultrasound for patient's age. Carotid Artery Ultrasound 12/14/17 0000 Signed Impressions: CONCLUSION: 1. Right Internal Carotid Artery: Findings indicate <50% stenosis. 2. Left Internal Carotid Artery: Findings indicate <50% stenosis. Course He has had a stable hospital course with no chest pain or respiratory issues. Dr. Ortega requests expedited evaluation due to his symptoms. Assessment and Plan Problem List: (1) Chest pain ICD Codes: R07.9 - Chest pain, unspecified Status: Acute (2) Coronary artery disease ICD Codes: I25.10 - Atherosclerotic heart disease of [place] coronary artery without angina pectoris (3) Morbid obesity ICD Codes: E66.01 - Morbid (severe) obesity due to excess calories Status: Chronic (4) Aortic stenosis ICD Codes: I35.0 - Nonrheumatic aortic (valve) stenosis Status: Chronic Permanent Comment: Severe Last Edited By: Charlie Ortega MD on Dec 17, 2017 09 :52 (5) Diastolic heart failure ICD Codes: I50.30 - Unspecified diastolic (congestive) heart failure (6) Pre-syncope ICD Codes: R55 - Syncope and collapse Status: Acute Assessment and Plan Morbidly obese 82y/o male presents with presyncope and respiratory with severe on ECHO. His calculated valve area is 0.53 cm2 which is critical given his BMI. He has CAD as well,but no stenoses >70%. He is not an open AVR candidate due to his morbid obesity, frailty, and predicted STS mortality. I will request a TAVR CTA on Tuesday and expedite his workup for TAVR this week. Problem Qualifiers (1) Diastolic heart failure: Qualified Codes: I50.33 - Acute on chronic diastolic (congestive) heart failure (2) Aortic stenosis: Qualified Codes: I35.0 - Nonrheumatic aortic (valve) stenosis (3) Coronary artery disease: Qualified Codes: I25.119 - Atherosclerotic heart disease of [place] coronary artery with unspecified angina pectoris (4) Chest pain: Qualified Codes: I20.8 - Other forms of angina pectoris Pati Shepard MD Dec 17, 2017 12:00
[2017-12-17 12:04] LABS: AUTOMATED NEUTROPHIL # 2.9 TH/MM3 (1.8-7.7); BASOPHIL % 0.7 % (0.0-2.0); EOSINOPHIL # 0.1 TH/MM3 (0-0.4); EOSINOPHIL % 2.2 % (0.0-4.0); HEMATOCRIT 35.4 % (39.0-51.0); HEMOGLOBIN 11.7 GM/DL (13.0-17.0); LYMPH % 23.8 % (9.0-44.0); LYMPHOCYTE # 1.1 TH/MM3 (1.0-4.8); MEAN CELL VOLUME 89.6 FL (80.0-100.0); MEAN CORPUSCULAR HEMOGLOBIN 29.6 PG (27.0-34.0); MEAN PLATELET VOLUME 8.3 FL (7.0-11.0); MONO % 11.1 % (0.0-8.0); MONOCYTE # 0.5 TH/MM3 (0-0.9); NEUT % 62.2 % (16.0-70.0); PLATELET COUNT 152 TH/MM3 (150-450); RED BLOOD COUNT 3.95 MIL/MM3 (4.50-5.90); WHITE BLOOD COUNT 4.6 TH/MM3 (4.0-11.0)
[2017-12-17 12:25] LABS: BICARBONATE 33.7 MEQ/L (21.0-32.0); CALCIUM 8.8 MG/DL (8.5-10.1); CREATININE 1.24 MG/DL (0.60-1.30)
--- NOTE | 2017-12-17 14:41 | HHI.PR ---
Subjective Remarks Patient seen and examined. AFVSS. No acute events. Patient has no new complaints. He reports he is feeling fine though still with LYNOS. Denies CP, cough, abdominal pain, N/V. Objective Vital Signs Date Time Temp Pulse Resp B/P (MAP) Pulse Ox O2 Delivery O2 Flow Rate FiO2 12/17/17 13:00 62 12/17/17 12:00 60 12/17/17 11:57 98.6 80 20 92/53 (66) 93 12/17/17 11:00 77 12/17/17 10:00 68 12/17/17 09:23 97.6 67 18 130/65 (86) 96 12/17/17 09:00 73 12/17/17 08:00 66 12/17/17 07:26 97 21 12/17/17 07:00 64 12/17/17 06:00 60 12/17/17 05:00 58 12/17/17 04:00 64 12/17/17 03:45 76 16 118/65 (82) 96 12/17/17 03:00 64 12/17/17 02:00 62 12/17/17 01:00 74 12/17/17 00:00 64 12/16/17 23:23 65 16 147/74 (98) 97 12/16/17 23:00 64 12/16/17 22:00 62 12/16/17 21:26 97 21 12/16/17 21:00 64 12/16/17 20:00 66 12/16/17 19:50 97.7 69 16 140/70 (93) 97 12/16/17 19:00 69 12/16/17 18:01 70 12/16/17 17:09 94 Nasal Cannula 2.00 12/16/17 17:00 62 12/16/17 15:01 59 12/16/17 15:01 61 18 112/54 (73) 95 I/O 12/16/17 12/16/17 12/16/17 12/17/17 12/17/17 12/17/17 07:00 15:00 23:00 07:00 15:00 23:00 Intake Total 240 ml 240 ml Output Total 700 ml 550 ml Balance -460 ml -310 ml Intake Oral 240 ml 240 ml Output Urine Total 700 ml 550 ml # Bowel Movements 0 Result Diagram: 12/17/17 1150 12/17/[address] Angiography 12/14/17 1033 Signed Impressions: CONCLUSION: 1. No evidence of pulmonary embolism. 2. Coronary artery calcifications. Chest X-Ray 12/14/17 0936 Signed Impressions: CONCLUSION: Moderate compensated the baby cardiomegaly Consolidative changes left base. Renal Ultrasound 12/14/17 0000 Signed Impressions: CONCLUSION: 1. Unremarkable bilateral renal ultrasound for patient's age. Carotid Artery Ultrasound 12/14/17 0000 Signed Impressions: CONCLUSION: 1. Right Internal Carotid Artery: Findings indicate <50% stenosis. 2. Left Internal Carotid Artery: Findings indicate <50% stenosis. Objective Remarks GENERAL: Morbidly obese male sitting up in chair comfortably in NAD. SKIN: Warm and dry. HEART: RRR with 2/6 SAI heard best at RUSB. LUNGS: CTAB without wheezes or crackles. ABDOMEN: +BS, soft, NT, ND. EXTREMITIES: Bilateral LE lymphedema with 3+ edema. NEURO: Awake and alert. Very hard of hearing. A/P Assessment and Plan 82 year old male with HTN, HLD, DM, lymphedema, HOMER, and AV stenosis admitted on 12/14 for acute respiratory distress nearly leading to syncope. 1. Aortic stenosis - Follows with Dr. Grove as outpatient and was not symptomatic as of his last office visit in June 2017 - 2D echo showing valve area 0.53 with a mean gradient of 75, moderate concentric left ventricular hypertrophy, ejection fraction 60-65% - Cardiology consulted; s/p cardiac cath showing 50% stenosis of proximal and mid-LAD and 70% stenosis of distal circumflex. Recommended medical management - CT surgery consulted; attempting expedited TAVR with work-up in process 2. DM - SSI per protocol 3. CAD - Continue ASA and ALDA-inhibitor 4. CKD - Monitor renal function and avoid nephrotoxic agents 5. HLD - Continue home statin 6. HTN - Stable - Continue home atenolol, chlorthalidone, Vasotec 7. Hypothyroidism - Continue home Synthroid 8. BPH - Continue Finasteride and Flmoax DVT prophylaxis: Loveleonidesx Berkley Calloway MD Dec 17, 2017 14:41
[2017-12-17] MEDS: TAMSULOSIN HCL 0.4 MG CAP PO SCH (20:41)
[2017-12-18] VITALS (30 sets, daily range): BP systolic 103–156; BP diastolic 4–74; PULSE 52–92; RESP 16–20; TEMP 97.7–98.7; O2SAT 97–99
[2017-12-18] MEDS: LEVOTHYROXINE SODIUM 100 MCG TAB PO SCH (05:53)
--- NOTE | 2017-12-18 06:01 | PD.CARD.PN ---
Subjective Subjective Remarks No complaints. No chest pain or dyspnea episode Objective Medications Current Medications Medications (Trade) Dose Ordered Sig/Gume Route Start Time Stop Time Status Last Admin (Zofran Inj) 4 mg Q6H PRN IVP 12/14/17 15:30 (Morphine Inj) 2 mg Q3H PRN IV PUSH 12/14/17 15:30 (Narcan Inj) 0.4 mg UNSCH PRN IV PUSH 12/14/17 15:30 (Milk Of Magnesia Liq) 30 ml Q12H PRN PO 12/14/17 15:30 (Nitrostat Sl) 0.4 mg Q5M PRN SL 12/14/17 15:30 (Aspirin) 325 mg DAILY PO 12/15/17 09:00 12/17/17 08:51 (Vasotec) 10 mg DAILY PO 12/15/17 09:00 12/17/17 08:51 (Proscar) 5 mg DAILY PO 12/15/17 09:00 12/17/17 08:51 (Synthroid) 100 mcg DAILY@0600 PO 12/15/17 06:00 12/18/17 05:53 (Flomax) 0.8 mg HS PO 12/14/17 21:00 12/17/17 20:41 (Lipitor) 40 mg DAILY PO 12/15/17 09:00 12/17/17 08:50 (D50w (Vial) Inj) 50 ml UNSCH PRN IV PUSH 12/14/17 16:15 (Glucagon Inj) 1 mg UNSCH PRN OTHER 12/14/17 16:15 (NovoLOG SUPPLEMENTAL SCALE) 1 ACHS SLIDING SCALE SQ 12/14/17 17:00 12/17/17 20:42 (Tenormin) 100 mg DAILY PO 12/15/17 09:00 12/17/17 08:51 (Hygroton) 25 mg DAILY PO 12/15/17 09:00 12/17/17 08:51 (Pill Splitter) 1 ea UNSCH PRN OTHER 12/14/17 21:30 12/15/17 09:54 Sodium Chloride 1,000 ml @ 30 mls/hr Q24H IV 12/15/17 10:02 12/20/17 10:01 (Benadryl) 50 mg INCOME TAX INVESTIGATOR PO 12/15/17 10:15 12/19/17 10:14 (Valium) 5 mg INCOME TAX INVESTIGATOR PO 12/15/17 10:15 12/19/17 10:14 (Tylenol) 650 mg Q6H PRN PO 12/15/17 13:00 ([place] 5-325 Mg) 1 tab Q4H PRN PO 12/15/17 13:00 12/17/17 20:46 (NS Flush) 2 ml BID IV FLUSH 12/16/17 09:00 12/17/17 20:43 (NS Flush) 2 ml UNSCH PRN IV FLUSH 12/16/17 08:30 Vital Signs / I&O Vital Signs Date Time Temp Pulse Resp B/P (MAP) Pulse Ox O2 Delivery O2 Flow Rate FiO2 12/18/17 03:34 64 16 103/52 (69) 98 12/18/17 03:00 57 12/18/17 02:00 59 12/18/17 01:00 64 12/18/17 00:00 56 12/17/17 23:15 58 20 96/56 (69) 98 12/17/17 23:00 61 12/17/17 22:00 64 12/17/17 21:49 95 21 12/17/17 21:00 72 12/17/17 20:00 72 12/17/17 19:30 97.5 65 16 119/52 (74) 95 12/17/17 19:00 68 12/17/17 18:00 67 12/17/17 17:00 60 12/17/17 16:00 62 12/17/17 15:17 98.7 80 16 137/80 (99) 98 12/17/17 15:00 65 12/17/17 14:00 62 12/17/17 13:00 62 12/17/17 12:00 60 12/17/17 11:57 98.6 80 20 92/53 (66) 93 12/17/17 11:00 77 12/17/17 10:00 68 12/17/17 09:23 97.6 67 18 130/65 (86) 96 12/17/17 09:00 73 12/17/17 08:00 66 12/17/17 07:26 97 21 12/17/17 07:00 64 I/O 12/17/17 12/17/17 12/17/17 12/18/1718 6/3/18 07:00 15:00 23:00 07:00 15:00 23:00 Intake Total 240 ml 720 ml Output Total 550 ml 900 ml Balance -310 ml -180 ml Intake Oral 240 ml 720 ml Output Urine Total 550 ml 900 ml # Bowel Movements 0 Physical Exam Alert, extreme morbid obesity chest diminished BS, no rales CV S1S2 RRR, 2/6 SAI suggestive of severe Abdomen soft 1-2+ LE edema, intact right radial pulse Laboratory Laboratory Tests Test 12/17/17 11:50 White Blood Count 4.6 TH/MM3 Red Blood Count 3.95 MIL/MM3 Hemoglobin 11.7 GM/DL Hematocrit 35.4 % Mean Corpuscular Volume 89.6 FL Mean Corpuscular Hemoglobin 29.6 PG Mean Corpuscular Hemoglobin Concent 33.0 % Red Cell Distribution Width 14.0 % Platelet Count 152 TH/MM3 Mean Platelet Volume 8.3 FL Neutrophils (%) (Auto) 62.2 % Lymphocytes (%) (Auto) 23.8 % Monocytes (%) (Auto) 11.1 % Eosinophils (%) (Auto) 2.2 % Basophils (%) (Auto) 0.7 % Neutrophils # (Auto) 2.9 TH/MM3 Lymphocytes # (Auto) 1.1 TH/MM3 Monocytes # (Auto) 0.5 TH/MM3 Eosinophils # (Auto) 0.1 TH/MM3 Basophils # (Auto) 0.0 TH/MM3 CBC Comment DIFF FINAL Differential Comment Blood Urea Nitrogen 29 MG/DL Creatinine 1.24 MG/DL Random Glucose 115 MG/DL Calcium Level 8.8 MG/DL Sodium Level 140 MEQ/L Potassium Level 4.4 MEQ/L Chloride Level 101 MEQ/L Carbon Dioxide Level 33.7 MEQ/L Anion Gap 5 MEQ/L Estimat Glomerular Filtration Rate 56 ML/MIN Assessment and Plan Problem List: (1) Morbid obesity ICD Codes: E66.01 - Morbid (severe) obesity due to excess calories Status: Chronic (2) Aortic stenosis ICD Codes: I35.0 - Nonrheumatic aortic (valve) stenosis Status: Chronic Permanent Comment: Severe Last Edited By: Charlie Ortega MD on Dec 17, 2017 09 :52 (3) Coronary artery disease ICD Codes: I25.10 - Atherosclerotic heart disease of [place] coronary artery without angina pectoris Assessment and Plan Appreciate Dr. Weston consult. TAVR soon Problem Qualifiers (1) Aortic stenosis: Qualified Codes: I35.0 - Nonrheumatic aortic (valve) stenosis (2) Coronary artery disease: Qualified Codes: I25.119 - Atherosclerotic heart disease of [place] coronary artery with unspecified angina pectoris Charlie Ortega MD Dec 18, 2017 06:01
[2017-12-18] MEDS: INSULIN ASPART SUPPLEMENTAL SCALE SQ SCH ×4 (08:00→21:00)
[2017-12-18] MEDS: ASPIRIN 325 MG TAB PO SCH (08:41)
[2017-12-18] MEDS: ATORVASTATIN 40 MG TAB PO SCH (08:41)
[2017-12-18] MEDS: ATENOLOL 100 MG TAB PO SCH (08:41)
[2017-12-18] MEDS: FINASTERIDE 5 MG TAB PO SCH (08:41)
[2017-12-18] MEDS: SODIUM CHLORIDE 0.9% FLUSH 10 ML FLUSH IV FLUSH SCH ×2 (08:42→21:16)
[2017-12-18] MEDS: ENALAPRIL MALEATE 10 MG TAB PO SCH (08:42)
[2017-12-18] MEDS: CHLORTHALIDONE 50 MG TAB PO SCH (08:44)
[2017-12-18] MEDS: SODIUM CHLOR 0.9% 1000 ML INJ 1,000 ML IV SCH (10:02)
--- NOTE | 2017-12-18 12:34 | HHI.PR ---
Subjective Remarks Patient seen and examined. AFVSS. No acute events overnight. Patient has no new complaints. He reports he is feeling fine though still with LYONS. Reports he walked across the room and was completely out of breath. Anxious to have procedure done. Denies CP, cough, abdominal pain, N/V. Objective Vital Signs Date Time Temp Pulse Resp B/P (MAP) Pulse Ox O2 Delivery O2 Flow Rate FiO2 12/18/17 12:03 98.0 64 16 125/73 (90) 98 12/18/17 12:00 60 12/18/17 11:00 62 12/18/17 10:24 97 21 12/18/17 10:00 62 12/18/17 09:00 64 12/18/17 08:56 97.7 92 20 139/64 (89) 97 12/18/17 08:00 56 12/18/17 07:00 61 12/18/17 06:00 60 12/18/17 05:00 56 12/18/17 04:00 56 12/18/17 03:34 64 16 103/52 (69) 98 12/18/17 03:00 57 12/18/17 02:00 59 12/18/17 01:00 64 12/18/17 00:00 56 12/17/17 23:15 58 20 96/56 (69) 98 12/17/17 23:00 61 12/17/17 22:00 64 12/17/17 21:49 95 21 12/17/17 21:00 72 12/17/17 20:00 72 12/17/17 19:30 97.5 65 16 119/52 (74) 95 12/17/17 19:00 68 12/17/17 18:00 67 12/17/17 17:00 60 12/17/17 16:00 62 12/17/17 15:17 98.7 80 16 137/80 (99) 98 12/17/17 15:00 65 12/17/17 14:00 62 12/17/17 13:00 62 I/O 12/17/17 12/17/17 12/17/17 12/18/17 12/18/17 12/18/17 07:00 15:00 23:00 07:00 15:00 23:00 Intake Total 240 ml 720 ml 240 ml Output Total 550 ml 900 ml 1 ml Balance -310 ml -180 ml 239 ml Intake Oral 240 ml 720 ml 240 ml Output Urine Total 550 ml 900 ml Stool Total 1 ml # Bowel Movements 0 0 Result Diagram: 12/17/17 1150 12/17/17 1150 Objective Remarks GENERAL: Morbidly obese male sitting up in chair comfortably in NAD. SKIN: Warm and dry. HEART: RRR with 2/6 SAI heard best at RUSB. LUNGS: CTAB without wheezes or crackles. ABDOMEN: +BS, soft, NT, ND. EXTREMITIES: Bilateral LE lymphedema with 3+ edema. NEURO: Awake and alert. Very hard of hearing. A/P Assessment and Plan 82 year old male with HTN, HLD, DM, lymphedema, HOMER, and AV stenosis admitted on 12/14 for acute respiratory distress nearly leading to syncope. 1. Aortic stenosis - Follows with Dr. Grove as outpatient and was not symptomatic as of his last office visit in June 2017 - 2D echo showing valve area 0.53 with a mean gradient of 75, moderate concentric left ventricular hypertrophy, ejection fraction 60-65% - Cardiology consulted; s/p cardiac cath showing 50% stenosis of proximal and mid-LAD and 70% stenosis of distal circumflex. Recommended medical management - CT surgery consulted; attempting expedited TAVR with work-up in process - Carotid U/S showing <50% stenosis in both ICAs - CTA showing coronary artery calcifications 2. DM - SSI per protocol 3. CAD - Continue ASA and ALDA-inhibitor 4. CKD - Monitor renal function and avoid nephrotoxic agents 5. HLD - Continue home statin 6. HTN - Stable - Continue home atenolol, chlorthalidone, Vasotec 7. Hypothyroidism - Continue home Synthroid 8. BPH - Continue Finasteride and Flomax DVT prophylaxis: Berkley Santos MD Dec 18, 2017 12:34
[2017-12-18] MEDS: TAMSULOSIN HCL 0.4 MG CAP PO SCH (21:16)
[2017-12-19] VITALS (27 sets, daily range): BP systolic 102–139; BP diastolic 43–92; PULSE 56–82; RESP 16–18; TEMP 97.4–98.1; O2SAT 95–98
[2017-12-19] MEDS: LEVOTHYROXINE SODIUM 100 MCG TAB PO SCH (05:44)
[2017-12-19] MEDS: ACETAMINOPHEN/HYDROcodone 325 MG/5 MG TAB PO PRN (05:47)
[2017-12-19] MEDS: INSULIN ASPART SUPPLEMENTAL SCALE SQ SCH ×4 (08:00→21:00)
[2017-12-19] MEDS: ASPIRIN 325 MG TAB PO SCH (09:24)
[2017-12-19] MEDS: ATORVASTATIN 40 MG TAB PO SCH (09:24)
[2017-12-19] MEDS: CHLORTHALIDONE 50 MG TAB PO SCH (09:24)
[2017-12-19] MEDS: ATENOLOL 100 MG TAB PO SCH (09:24)
[2017-12-19] MEDS: FINASTERIDE 5 MG TAB PO SCH (09:25)
[2017-12-19] MEDS: ENALAPRIL MALEATE 10 MG TAB PO SCH (09:25)
[2017-12-19] MEDS: SODIUM CHLORIDE 0.9% FLUSH 10 ML FLUSH IV FLUSH SCH ×2 (09:25→21:08)
--- NOTE | 2017-12-19 09:33 | PD.CAR.PN ---
CVT Progress Note Subjective/Hospital Course: pt seen by both Dr Shepard and Dr Quezada recommend TAVR for EP eval today and TAVR CTA Objective: GENERAL: SKIN: Warm and dry. HEAD: Normocephalic. EYES: No scleral icterus. No injection or drainage. NECK: Supple, trachea midline. No JVD or lymphadenopathy. CARDIOVASCULAR: Regular rate and rhythm without murmurs, gallops, or rubs. lymphedema both legs RESPIRATORY: Breath sounds equal bilaterally. No accessory muscle use. GASTROINTESTINAL: Abdomen soft, non-tender, nondistended. MUSCULOSKELETAL: No cyanosis, or edema. BACK: Nontender without obvious deformity. No CVA tenderness. Vital Signs Date Time Temp Pulse Resp B/P (MAP) Pulse Ox O2 Delivery O2 Flow Rate FiO2 12/19/17 06:00 63 12/19/17 05:00 56 12/19/17 04:00 56 12/19/17 03:39 63 16 139/43 (75) 98 12/19/17 03:00 62 12/19/17 02:00 58 12/19/17 01:00 64 12/19/17 00:00 60 12/18/17 23:00 63 12/18/17 23:00 64 16 124/56 (78) 99 12/18/17 22:00 60 12/18/17 21:00 62 12/18/17 20:05 21 12/18/17 20:00 64 12/18/17 19:50 98.0 52 20 156/65 (95) 97 12/18/17 19:00 62 12/18/17 18:00 64 12/18/17 17:00 56 12/18/17 16:00 56 12/18/17 15:57 98.7 74 16 144/74 (97) 97 12/18/17 15:00 67 12/18/17 14:00 56 12/18/17 13:00 60 12/18/17 12:03 98.0 64 16 125/73 (90) 98 12/18/17 12:00 60 12/18/17 11:00 62 12/18/17 10:24 97 21 12/18/17 10:00 62 Result Diagram: 12/17/17 1150 12/17/17 1150 (1) Morbid obesity (2) Aortic stenosis Plan: Plan is for TAVR. (3) Coronary artery disease Plan: medical therapy Problem Qualifiers (1) Aortic stenosis: Qualified Codes: I35.0 - Nonrheumatic aortic (valve) stenosis (2) Coronary artery disease: Qualified Codes: I25.119 - Atherosclerotic heart disease of [place] coronary artery with unspecified angina pectoris Melodie Bertrand Dec 19, 2017 09:33
--- NOTE | 2017-12-19 09:55 | RSPPFT ---
DATE OF PROCEDURE: 12/16/17 COMMENTS: Spirometry demonstrates an FEV1 of 1.2 at 51% of predicted, FVC of 1.6 at 54%, FEF 25-75 is 45%. Flow volume loops are atypical and may suggest variable extra-thoracic airways obstruction. Clinical correlation is requested. IMPRESSION: 1. Moderate obstructive disease. 2. Probable additional mild to moderate restrictive disease.
[2017-12-19] MEDS: SODIUM CHLOR 0.9% 1000 ML INJ 1,000 ML IV SCH (10:02)
[2017-12-19] MEDS: MUPIROCIN 2% OINT 1 APPLIC/GM SYR NASAL SCH ×2 (13:14→21:13)
--- NOTE | 2017-12-19 17:15 | HHI.PR ---
Subjective Remarks Follow up for Aortic stenosis. Patient is doing well, resting in bed. No acute concerns. Objective Vitals Vital Signs Date Time Temp Pulse Resp B/P (MAP) Pulse Ox O2 Delivery O2 Flow Rate FiO2 12/19/17 16:32 65 12/19/17 15:36 97.6 63 16 102/56 (71) 95 12/19/17 15:36 60 12/19/17 14:08 62 12/19/17 13:03 65 12/19/17 12:44 78 12/19/17 11:36 97.4 58 16 107/50 (69) 95 12/19/17 11:36 58 12/19/17 10:06 82 12/19/17 09:55 57 12/19/17 08:26 58 12/19/17 07:48 56 12/19/17 07:48 98.1 56 16 113/92 (99) 97 12/19/17 06:00 63 12/19/17 05:00 56 12/19/17 04:00 56 12/19/17 03:39 63 16 139/43 (75) 98 12/19/17 03:00 62 12/19/17 02:00 58 12/19/17 01:00 64 12/19/17 00:00 60 12/18/17 23:00 63 12/18/17 23:00 64 16 124/56 (78) 99 12/18/17 22:00 60 12/18/17 21:00 62 12/18/17 20:05 21 12/18/17 20:00 64 12/18/17 19:50 98.0 52 20 156/65 (95) 97 12/18/17 19:00 62 12/18/17 18:00 64 I/O 12/18/17 12/18/17 12/18/17 12/19/17 12/19/17 12/19/17 07:00 15:00 23:00 07:00 15:00 23:00 Intake Total 240 ml 720 ml 240 ml Output Total 1 ml 800 ml Balance 239 ml -80 ml 240 ml Intake Oral 240 ml 720 ml 240 ml Output Urine Total 800 ml Stool Total 1 ml # Voids 3 # Bowel Movements 0 0 Result Diagram: 12/17/17 1150 12/17/17 [address] Angiography 12/14/17 1033 Signed Impressions: CONCLUSION: 1. No evidence of pulmonary embolism. 2. Coronary artery calcifications. Chest X-Ray 12/14/17 0936 Signed Impressions: CONCLUSION: Moderate compensated the baby cardiomegaly Consolidative changes left base. Renal Ultrasound 12/14/17 0000 Signed Impressions: CONCLUSION: 1. Unremarkable bilateral renal ultrasound for patient's age. Carotid Artery Ultrasound 12/14/17 0000 Signed Impressions: CONCLUSION: 1. Right Internal Carotid Artery: Findings indicate <50% stenosis. 2. Left Internal Carotid Artery: Findings indicate <50% stenosis. Objective Remarks GENERAL: Alert, Oriented x 3, NAD. SKIN: Warm and dry. HEAD: Normocephalic. EYES: No scleral icterus. No injection or drainage. NECK: Supple, trachea midline. No JVD or lymphadenopathy. CARDIOVASCULAR: Regular rate and rhythm without gallops, or rubs. Systolic murmur present. RESPIRATORY: Breath sounds equal bilaterally. No accessory muscle use. GASTROINTESTINAL: Abdomen soft, non-tender, nondistended. MUSCULOSKELETAL: No cyanosis, or edema. BACK: Nontender without obvious deformity. No CVA tenderness. Procedures Cardiac cath 12/16/2017 1. Known severe aortic stenosis. 2. Two-vessel disease, but I think the best approach would be to treat medically. A/P Problem List: (1) Chest pain ICD Code: R07.9 - Chest pain, unspecified Status: Acute (2) Acute kidney injury ICD Code: N17.9 - Acute kidney failure, unspecified (3) Diabetes mellitus ICD Code: E11.9 - Type 2 diabetes mellitus without complications (4) Hyperlipidemia ICD Code: E78.5 - Hyperlipidemia, unspecified (5) Morbid obesity ICD Code: E66.01 - Morbid (severe) obesity due to excess calories Status: Chronic (6) Aortic stenosis ICD Code: I35.0 - Nonrheumatic aortic (valve) stenosis Status: Chronic Permanent Comment: Severe Last Edited By: Charlie Ortega MD on Dec 17, 2017 9: 52 am Assessment and Plan 82 year old male with HTN, HLD, DM, lymphedema, HOMER, and AV stenosis admitted on 12/14 for acute respiratory distress nearly leading to syncope. 1. Aortic stenosis - Follows with Dr. Grove as outpatient and was not symptomatic as of his last office visit in June 2017 - 2D echo showing valve area 0.53 with a mean gradient of 75, moderate concentric left ventricular hypertrophy, ejection fraction 60-65% - Cardiology consulted; s/p cardiac cath showing 50% stenosis of proximal and mid-LAD and 70% stenosis of distal circumflex. Recommended medical management - CT surgery consulted; attempting expedited TAVR with work-up in process - Carotid U/S showing <50% stenosis in both ICAs - CTA showing coronary artery calcifications 2. DM - SSI per protocol. BG around 130-140s. 3. CAD - Continue ASA and ALDA-inhibitor, Atorvastatin 40mg Qday, Atenolol 100mg Qday. 4. CKD - Monitor renal function and avoid nephrotoxic agents 5. HLD - Continue home statin 6. HTN - Stable - Continue home atenolol, chlorthalidone, Vasotec 7. Hypothyroidism - Continue home Synthroid 8. BPH - Continue Finasteride and Flomax Full code. SCDs. Problem Qualifiers (1) Chest pain: Qualified Codes: I20.8 - Other forms of angina pectoris (2) Aortic stenosis: Qualified Codes: I35.0 - Nonrheumatic aortic (valve) stenosis Wild Oliveira DO Dec 19, 2017 5:15 pm
--- NOTE | 2017-12-19 18:32 | MB ---
cc: Laura Day MD,Pati Beckman MD DATE: 12/19/2017 REASON FOR CONSULTATION: Evaluation before TAVR. HISTORY OF PRESENT ILLNESS: Mr. Ashton is an 82-year-old gentleman with history of high blood pressure, hyperlipidemia, morbid obesity, diabetes mellitus, high blood pressure, chronic lymphedema as well as severe aortic stenosis. Ejection fraction is around 60-65%. Aortic valve area is 0.53. Left heart catheterization done by Dr. Ortega. There was no need for intervention. The patient was sent for aortic valve replacement. The chart was reviewed. The patient was evaluated. Case discussed with the patient and family. ALLERGIES: NONE REPORTED. MEDICATIONS: The patient takes: 1. Flomax. 2. Crestor 3. Enalapril. 4. Aspirin. 5. Metformin. 6. Levoxyl. 7. Finasteride. SOCIAL HISTORY: Negative for smoking and drinking. FAMILY HISTORY: Noncontributory to his current medical condition. REVIEW OF SYSTEMS: He refers feeling fine. No chest pain. Some shortness of breath. No fever. PHYSICAL EXAMINATION: GENERAL: Alert, fully oriented. VITAL SIGNS: Blood pressure 102/56, pulse 60, respiratory rate 18. LUNGS: Ventilated. CARDIOVASCULAR: S1, S2. There is systolic ejection murmur, 2/6. ABDOMEN: Obese. No mass. EXTREMITIES: Lymphedema. ELECTROCARDIOGRAM: Sinus rhythm, first degree AV block. No acute ST and T-wave changes. LABORATORY DATA: Hemoglobin 11.7, white blood cell 4.6. Potassium 4.4, creatinine 1.24. ASSESSMENT AND RECOMMENDATIONS: Mr. Ashton has severe aortic stenosis. Electrocardiogram indicates sinus rhythm, some first degree AV block. The QRS is around [address] changes. There is no sign of grade AV block or major conduction abnormality. At this point my recommendation is to proceed with valve replacement. Case discussed with the family. If there is a need for device, then that will be inserted after the procedure. Currently, there is no clear indication for pacing support. I will be available on a p.r.n. basis. Laura Day MD HS/SB , 05:38 PM , 06:31 PM
[2017-12-19] MEDS ORDERED: IODIXANOL 320 MG/ML 10 ML VIAL (for Rad CT) IVCONTRAST ONE (20:18)
[2017-12-19] MEDS: TAMSULOSIN HCL 0.4 MG CAP PO SCH (21:08)
[2017-12-20] VITALS (14 sets, daily range): BP systolic 102–108; BP diastolic 47–56; PULSE 57–74; RESP 16–20; TEMP 97.4–97.8; O2SAT 95–98
[2017-12-20] MEDS: LEVOTHYROXINE SODIUM 100 MCG TAB PO SCH (06:11)
[2017-12-20] MEDS: INSULIN ASPART SUPPLEMENTAL SCALE SQ SCH ×2 (08:00→12:00)
[2017-12-20] MEDS: MUPIROCIN 2% OINT 1 APPLIC/GM SYR NASAL SCH (09:00)
[2017-12-20] MEDS: SODIUM CHLORIDE 0.9% FLUSH 10 ML FLUSH IV FLUSH SCH (09:00)
[2017-12-20] MEDS: ATORVASTATIN 40 MG TAB PO SCH (09:00)
[2017-12-20] MEDS: ENALAPRIL MALEATE 10 MG TAB PO SCH (09:00)
[2017-12-20] MEDS: CHLORTHALIDONE 50 MG TAB PO SCH (09:12)
[2017-12-20] MEDS: ASPIRIN 325 MG TAB PO SCH (09:12)
[2017-12-20] MEDS: FINASTERIDE 5 MG TAB PO SCH (09:12)
[2017-12-20] MEDS: ATENOLOL 100 MG TAB PO SCH (09:13)
--- NOTE | 2017-12-20 09:25 | PD.CARD.PN ---
Subjective Subjective Remarks No complaints. No chest pain or dyspnea Objective Medications Current Medications Medications (Trade) Dose Ordered Sig/Gume Route Start Time Stop Time Status Last Admin (Zofran Inj) 4 mg Q6H PRN IVP 12/14/17 15:30 (Morphine Inj) 2 mg Q3H PRN IV PUSH 12/14/17 15:30 (Narcan Inj) 0.4 mg UNSCH PRN IV PUSH 12/14/17 15:30 (Milk Of Magnesia Liq) 30 ml Q12H PRN PO 12/14/17 15:30 (Nitrostat Sl) 0.4 mg Q5M PRN SL 12/14/17 15:30 (Aspirin) 325 mg DAILY PO 12/15/17 09:00 12/20/17 09:12 (Vasotec) 10 mg DAILY PO 12/15/17 09:00 12/20/17 09:00 (Proscar) 5 mg DAILY PO 12/15/17 09:00 12/20/17 09:12 (Synthroid) 100 mcg DAILY@0600 PO 12/15/17 06:00 12/20/17 06:11 (Flomax) 0.8 mg HS PO 12/14/17 21:00 12/19/17 21:08 (Lipitor) 40 mg DAILY PO 12/15/17 09:00 12/20/17 09:00 (D50w (Vial) Inj) 50 ml UNSCH PRN IV PUSH 12/14/17 16:15 (Glucagon Inj) 1 mg UNSCH PRN OTHER 12/14/17 16:15 (NovoLOG SUPPLEMENTAL SCALE) 1 ACHS SLIDING SCALE SQ 12/14/17 17:00 12/19/17 21:00 (Tenormin) 100 mg DAILY PO 12/15/17 09:00 12/20/17 09:13 (Hygroton) 25 mg DAILY PO 12/15/17 09:00 12/20/17 09:12 (Pill Splitter) 1 ea UNSCH PRN OTHER 12/14/17 21:30 12/15/17 09:54 Sodium Chloride 1,000 ml @ 30 mls/hr Q24H IV 12/15/17 10:02 12/20/17 10:01 (Tylenol) 650 mg Q6H PRN PO 12/15/17 13:00 ([place] 5-325 Mg) 1 tab Q4H PRN PO 12/15/17 13:00 12/19/17 05:47 (NS Flush) 2 ml BID IV FLUSH 12/16/17 09:00 12/20/17 09:00 (NS Flush) 2 ml UNSCH PRN IV FLUSH 12/16/17 08:30 (Bactroban Nasal 2% Oint) 1 applic BID NASAL 12/19/17 12:00 12/23/17 11:59 12/20/17 09:00 Vital Signs / I&O Vital Signs Date Time Temp Pulse Resp B/P (MAP) Pulse Ox O2 Delivery O2 Flow Rate FiO2 12/20/17 09:21 62 12/20/17 08:12 58 12/20/17 07:56 68 12/20/17 07:56 97.6 68 16 103/56 (72) 95 12/20/17 06:00 74 12/20/17 05:00 58 12/20/17 04:00 58 12/20/17 03:00 57 12/20/17 03:00 97.4 68 20 102/47 (65) 97 12/20/17 02:00 60 12/20/17 01:00 60 12/20/17 00:01 97.5 66 16 105/48 (67) 98 12/20/17 00:00 64 12/19/17 23:00 65 12/19/17 22:00 68 12/19/17 21:38 21 12/19/17 21:19 97.9 67 18 121/54 (76) 97 12/19/17 21:00 66 12/19/17 20:00 68 12/19/17 19:00 73 12/19/17 18:19 66 12/19/17 17:52 70 12/19/17 16:32 65 12/19/17 15:36 97.6 63 16 102/56 (71) 95 12/19/17 15:36 60 12/19/17 14:08 62 12/19/17 13:03 65 12/19/17 12:44 78 12/19/17 11:36 97.4 58 16 107/50 (69) 95 12/19/17 11:36 58 12/19/17 10:06 82 12/19/17 09:55 57 I/O 12/19/17 12/19/17 12/19/17 12/20/17 12/20/17 12/20/17 07:00 15:00 23:00 07:00 15:00 23:00 Intake Total 240 ml 480 ml 240 ml Output Total 650 ml Balance 240 ml -170 ml 240 ml Intake Oral 240 ml 480 ml 240 ml Output Urine Total 650 ml # Voids 3 3 # Bowel Movements 0 Physical Exam Alert, extreme morbid obesity, NAD chest diminished BS, no rales CV S1S2 RRR, 2/6 SAI suggestive of severe Abdomen soft 1-2+ LE edema, intact right radial pulse Assessment and Plan Problem List: (1) Morbid obesity ICD Codes: E66.01 - Morbid (severe) obesity due to excess calories Status: Chronic (2) Aortic stenosis ICD Codes: I35.0 - Nonrheumatic aortic (valve) stenosis Status: Chronic Permanent Comment: Severe Last Edited By: Charlie Ortega MD on Dec 17, 2017 09 :52 (3) Coronary artery disease ICD Codes: I25.10 - Atherosclerotic heart disease of [place] coronary artery without angina pectoris Assessment and Plan Arrangements being made for TAVR Problem Qualifiers (1) Aortic stenosis: Qualified Codes: I35.0 - Nonrheumatic aortic (valve) stenosis (2) Coronary artery disease: Qualified Codes: I25.119 - Atherosclerotic heart disease of [place] coronary artery with unspecified angina pectoris Charlie Ortega MD Dec 20, 2017 09:25
--- NOTE | 2017-12-20 12:37 | MB ---
cc: Brendon Dominguez MD DATE: 12/20/2017 REQUESTED BY: TAVR coordinator and cardiothoracic surgeon. REASON FOR CONSULTATION: Severe symptomatic aortic stenosis. HISTORY OF PRESENT ILLNESS: This is an 82-year-old male has a history of severe aortic stenosis, who presents with acute respiratory distress and presyncope. Transthoracic echocardiogram showed severely reduced valve area and mean gradient of 75 mmHg. He had a cardiac catheterization, which revealed some circumflex disease, but medical management was undertaken. He was seen by cardiothoracic surgery and felt to be at higher risk for traditional surgical aortic valve replacement and we were consulted for consideration of transcatheter aortic valve replacement. PAST MEDICAL HISTORY: Morbid obesity, type 2 diabetes, chronic lymphedema, hyperlipidemia, hypertension, neuropathy, sleep apnea, BPH, and hypothyroidism. REVIEW OF SYSTEMS: A 12-point review of systems was performed, negative unless otherwise noted in history of present illness. ALLERGIES: NONE. HOME MEDICATIONS: 1. Flomax. 2. Crestor 3. Atenolol. 4. Enalapril. 5. Aspirin. 6. [place]. 7. Metformin. 8. Levothyroxine. 9. Finasteride. FAMILY HISTORY: He denies any family history of early coronary disease or sudden cardiac . SOCIAL HISTORY: Denies any alcohol, tobacco or drug use. PHYSICAL EXAMINATION: VITAL SIGNS: Temperature is 97, pulse 65, blood pressure is 108/53 mmHg. GENERAL: Alert and oriented x 3, in no acute distress. HEENT: Shows pupils reactive to light and accomodation. Extraocular movements are intact. NECK: No elevation of jugular venous distention. No thyromegaly. No lymphadenopathy. No carotid bruits. LUNGS: Clear to auscultation bilaterally. CARDIOVASCULAR: Regular rate and rhythm without a III/ crescendo-decrescendo murmur at the right sternal border. ABDOMEN: Nontender, nondistended with good bowel sounds. No hepatosplenomegaly. EXTREMITIES: Show no clubbing, cyanosis or edema. Good peripheral pulses. NEUROLOGIC: Cranial nerves intact. Motor and sensory grossly intact. LABORATORY DATA: WBC 4.6, hemoglobin is 11.7, platelet count is 152. INR is 1.0. Sodium 140, potassium 4.4, BUN is 29, creatinine is 1.24. Troponins negative. ASSESSMENT: Severe aortic valve stenosis. PLAN: I discussed the risks, benefits, and alternatives of transcatheter aortic valve replacement with the patient. The patient is high risk by STS score for traditional surgical aortic valve replacement. The patient will be a good candidate for percutaneous aortic valve. We will plan to schedule him next week for the transcatheter aortic valve replacement given his progressive rapid symptoms. MD SAI Campbell/HARLEY , 12:20 PM , 12:37 PM
--- NOTE | 2017-12-20 17:16 | RADRPT ---
EXAM DATE: 12/19/2017 6:49 PM EDT AGE/SEX: 82 years / Male INDICATIONS: Aortic valve stenosis CLINICAL DATA: This is the patient's initial encounter. Patient reports that signs and symptoms have been present for 1 day and indicates a pain score of 0/10. MEDICAL/SURGICAL HISTORY: Cardiovascular disease. Diabetes. None. RADIATION DOSE: 12.63 CTDI (mGy) COMPARISON: No prior [facility] exams available for comparison. TECHNIQUE: Volumetric scanning was performed using a multi-row detector CT scanner during bolus infu nathalia of 80 ml Visipaque 320 (iodixanol) nonionic water-soluble contrast as a single exam dose. The data was post processed with a variety of visualization algorithms including full volume maximum inte nsity projection, multi-planar sliding thin slab reformation, curved planar reformation, and surface rendering techniques. Using automated exposure control and adjustment of the mA and/or kV according to patient size, radiation dose was kept as low as reasonably achievable to obtain optimal diagnostic quality images. FINDINGS: CARDIAC: The coronary system is right dominant. Extensive calcific atherosclerotic disease involving the coronaries. There is no pericardial effusion AORTIC ROOT/VALVE: 3 cusps are evident with extensive calcifications. The aortic root measures 36-37 mm . Mid thoracic aorta measures 25 mm with mild patchy calcifications. THORACIC AORTA: Truncus configuration arch anatomy. No evidence of stenosis, aneurysm or dissection ABDOMINAL AORTA: Mild atheromatous irregularity without evidence of aneurysm, stenosis or dissection . Aortic visceral vessels are patent with mild eccentric calcific stenosis at least involving the rig ht renal artery and less severe changes involving celiac, SMA and left renal artery. The SABRINA is paten t. RIGHT ILIAC: No evidence of aneurysm, mural thrombus, dissection, mural calcification, or stenosis. The common femoral measures 11 mm. LEFT ILIAC: No evidence of aneurysm, mural thrombus, dissection, mural calcification, or stenosis. The common femoral measures 11 mm. THORAX: Mild scarring or atelectasis in the left lung base. ABDOMEN: No acute findings PELVIS: No acute findings CONCLUSION: 1. Calcific aortic valvular disease. 2. Arterial anatomy otherwise satisfactory for TAVR Electronically signed by: New Perez MD 12/20/2017 5:15 PM EDT
== END 2017-12-20 13:45 | disposition home or self-care (01) | DRG 287 ==
LOC: NEPE 09:14 → NEDA 14:01 → NEPGCP 16:46 → HCIS 12-16 07:50 → INTOOBSV 12-17 17:55 → OBSVTOIN 12-17 17:55
PROVIDERS: ADMIT Hospitalist; ATTEND Hospitalist
PROC: 4A023N7 Measurement of Cardiac Sampling and Pressure, Left Heart, Percutaneous Approach (ICD-10-PCS; 2017-12-16)
PROC: B2111ZZ Fluoroscopy of Multiple Coronary Arteries using Low Osmolar Contrast (ICD-10-PCS; principal; 2017-12-16 07:30)
DX: I35.0 Nonrheumatic aortic (valve) stenosis (principal); N17.9 Acute kidney failure, unspecified; I13.0 Hypertensive heart and chronic kidney disease with heart failure and stage 1 through stage 4 chronic kidney disease, or unspecified chronic kidney disease; I50.30 Unspecified diastolic (congestive) heart failure; N18.9 Chronic kidney disease, unspecified; E11.22 Type 2 diabetes mellitus with diabetic chronic kidney disease; Z79.84 Long term (current) use of oral hypoglycemic drugs; Z68.42 Body mass index [BMI] 45.0-49.9, adult; E66.01 Morbid (severe) obesity due to excess calories; I25.119 Atherosclerotic heart disease of native coronary artery with unspecified angina pectoris; Z82.49 Family history of ischemic heart disease and other diseases of the circulatory system; E78.5 Hyperlipidemia, unspecified; M19.90 Unspecified osteoarthritis, unspecified site; N40.0 Benign prostatic hyperplasia without lower urinary tract symptoms; Z79.82 Long term (current) use of aspirin; G47.30 Sleep apnea, unspecified; H91.90 Unspecified hearing loss, unspecified ear; E03.9 Hypothyroidism, unspecified; I89.0 Lymphedema, not elsewhere classified
CPT/HCPCS: 71045; 71275; 74174; 76775; 76937; 80048; 80053; 81001; 82550; 82948; 83690; 83880; 84436; 84443; 84481; 84484; 85025; 85379; 85610; 85730; 86850; 86900; 86901; 87641; 93005; 93306; 93454; 93880; 94010; 99152; 99153; C1769; C1893; J1644; J1650; J1815; J2250; J3010; Q9967

== ENCOUNTER 2017-12-26 05:19 | Inpatient (IN) | payer OTHER, MEDICARE ==
[2017-12-26] VITALS (10 sets, daily range): BP systolic 101–146; BP diastolic 55–81; PULSE 69–100; RESP 18–20; TEMP 96.8–98.3; O2SAT 94–99
[~2017-12-26] VITALS: Ht 170.2 cm; Wt 130.7 kg
[~2017-12-26 05:19] MED LIST: ASPI-516 CHEW; ATEN100T7 PO; ENAL10TA PO; FINA5TAB2; HYDR-3516 PO; LEVO100T5 PO; METF500T PO; ROSU1TAB8 PO; TAMS0.4C4 PO
[2017-12-26] MEDS ORDERED: MUPIROCIN 2% OINT 1 APPLIC/GM SYRINGE EACH NARE PRN (06:00)
[2017-12-26] MEDS ORDERED: CHLORHEXIDINE GLUCONATE 2 % 1 PACK (2 CLOTHS) TOPICAL PRN ×2 (06:00)
[2017-12-26] MEDS ORDERED: SODIUM CHLORID 0.9% 500 ML IV PRN (06:00)
[2017-12-26] MEDS ORDERED: ASPIRIN 325 MG TAB PO PRN (06:00)
[2017-12-26] MEDS ORDERED: POVIDONE IODINE 5% (ANTISEPSIS KIT) 4 APPLICATIONS EACH NARE PRN (06:00)
[2017-12-26] MEDS ORDERED: METOPROLOL TARTRATE 25 MG TAB PO PRN (06:00)
[2017-12-26] MEDS: SODIUM CHLOR 0.9% 1000 ML 1,000 ML IV SCH ×2 (06:00→13:02)
[2017-12-26] MEDS ORDERED: POVIDONE IODINE 5% (ANTISEPSIS KIT) EACH NARE PRN (06:00)
[2017-12-26] MEDS ORDERED: ceFAZolin 2 GM/DEX PREMIX 50 ML IV SCH (06:00)
[2017-12-26] MEDS ORDERED: LACTATED RINGER'S 1000 ML IV PRN (06:00)
[2017-12-26] MEDS ORDERED: HEPARIN-NS/PF INJ 500 ML ONE (06:35)
[2017-12-26] MEDS ORDERED: PROTAMINE SULFATE 50 MG/5 ML VIAL ONE ×2 (06:35→09:09)
[2017-12-26] MEDS ORDERED: HEPARIN SODIUM - IV 10,000 UNITS/10 ML VIAL ONE (06:35)
[2017-12-26] MEDS ORDERED: HEPARIN SODIUM - SQ 10,000 UNITS/ML VIAL ONE (06:35)
[2017-12-26 06:50] LABS: AUTOMATED NEUTROPHIL # 3.1 TH/MM3 (1.8-7.7); BASOPHIL % 0.6 % (0.0-2.0); EOSINOPHIL # 0.1 TH/MM3 (0-0.4); EOSINOPHIL % 1.7 % (0.0-4.0); HEMATOCRIT 35.4 % (39.0-51.0); HEMOGLOBIN 11.8 GM/DL (13.0-17.0); LYMPH % 28.1 % (9.0-44.0); LYMPHOCYTE # 1.5 TH/MM3 (1.0-4.8); MEAN CELL VOLUME 88.6 FL (80.0-100.0); MEAN CORPUSCULAR HEMOGLOBIN 29.5 PG (27.0-34.0); MEAN CORPUSCULAR HGB CONC 33.3 % (32.0-36.0); MEAN PLATELET VOLUME 8.9 FL (7.0-11.0); MONOCYTE # 0.6 TH/MM3 (0-0.9); NEUT % 58.6 % (16.0-70.0); PLATELET COUNT 150 TH/MM3 (150-450); RED CELL DISTRIBUTION WIDTH 14.3 % (11.6-17.2); WHITE BLOOD COUNT 5.3 TH/MM3 (4.0-11.0)
[2017-12-26 07:03] LABS: PROTHROMBIN TIME - PATIENT 10.2 SEC (9.8-11.6)
[2017-12-26] MEDS ORDERED: fentaNYL CITRATE 250 MCG/5 ML AMP ONE (07:04)
[2017-12-26 07:12] LABS: CALCIUM 8.9 MG/DL (8.5-10.1); CREATININE 1.61 MG/DL (0.60-1.30)
[2017-12-26] MEDS ORDERED: SUGAMMADEX SODIUM 200 MG/2 ML VIAL IV PUSH ONE (09:16)
--- NOTE | 2017-12-26 09:28 | PD.OP ---
cc: Pati Shepard MD; Brendon Dominguez MD; Charlie Ortega MD Operative Report Date of Surgery: Dec 26, 2017 Preoperative Diagnosis: (1) Coronary artery disease (2) Aortic stenosis (3) Diastolic heart failure Postoperative Diagnosis: same Procedure: Transcatheter aortic valve replacement with a 29 Livia 3 tissue valve Balloon aortic valvuloplasty with a 25x4 Bowling balloon Percutaneous bilateral femoral artery access with Perclose closure on right Percutaneous left femoral vein access Fluoroscopy aortography Anesthesia: Dr. Vences Surgeon: Pati Shepard Co-surgeon - Dr. Dominguez Cpa Tax(s): none Operation and Findings: . The risks, benefits, complications, treatment options, and expected outcomes were discussed with the patient. The possibilities of reaction to medication, pulmonary aspiration, perforation of viscus, bleeding, recurrent infection, the need for additional procedures, failure to diagnose a condition, and creating a complication requiring transfusion or operation were discussed with the patient. The patient concurred with the proposed plan, giving informed consent. The site of surgery properly noted/marked. The patient was taken to the hybrid operating room, identified as Lonnie Ashton and the procedure verified as Transcatheter Aortic Valve Replacement. A Time Out was held and the above information confirmed. Standard monitoring lines and Negro catheter were placed. General anesthesia was induced. The patient was prepped and draped in a sterile fashion. Initially, left femoral arterial and venous access was acquired using a Seldinger percutaneous technique. The details of this procedure were dictated under separate note by cardiology. Once a pigtail was positioned in the aortic annulus and a temporary transvenous pacemaker wire was placed in the right ventricular apex and tested, the right femoral artery was accessed using a needle followed by a guidewire under fluoroscopic guidance. The patient was heparinized and 2 Perclose devices deployed for later closure. Serial dilators were used to dilate the right femoral artery to 16 Frisian caliber. The Bowling sheath was then inserted up to the distal abdominal aorta. Arch aortography was performed to define the implant view. A balloon aortic valvuloplasty was then performed using a 25 x 4 balloon with the patient being paced at 180 beats per minute. A 29 Bowling Livia 3 transcatheter aortic valve was then positioned in the annulus and deployed with the patient being paced at 180 beats per minute. Following deployment, the valve apparatus was withdrawn and arch aortography and DALLAS were performed to assess the valve. The valve had no significant perivalvular leaks. Gradients were then measured and the sheath was removed. Perclose sutures were secured with good hemostasis and protamine was administered. Sterile dressings were placed. At the end of the operation, all sponge, instruments, and needle counts were correct. The patient was transferred to the CVICU in stable condition. Implants: 29 S3 tissue valve Complications: none Disposition: to CVICU in stable condition Pati Shepard MD Dec 26, 2017 09:28
[2017-12-26] MEDS ORDERED: IOHEXOL 350 MG/ML 100 ML BTL (for RAD DIAG) IVCONTRAST ONE (09:59)
[2017-12-26] MEDS ORDERED: SODIUM CHLOR 0.9% 1000 ML INJ 1,000 ML IV SCH (09:59)
[2017-12-26] MEDS ORDERED: DEXTROSE 50% IN WATER 50 ML VIAL(D50) IV PUSH PRN (10:00)
[2017-12-26] MEDS ORDERED: GLUCAGON 1 MG/ML VIAL OTHER PRN (10:00)
[2017-12-26] MEDS ORDERED: MISC INFORMATION OTHER ONE (10:00)
[2017-12-26] MEDS ORDERED: ATROPINE SULFATE 1 MG/ML VIAL IV PUSH PRN (10:00)
[2017-12-26] MEDS ORDERED: ACETAMINOPHEN 325 MG TAB PO PRN (10:00)
[2017-12-26] MEDS ORDERED: BENZOCAINE-MENTHOL (SUGAR FREE) 15 MG-3.6 MG LOZENGE BUCCAL PRN (10:00)
--- NOTE | 2017-12-26 10:28 | MH ---
cc: Brendon Dominguez MD DATE OF ADMISSION: 12/26/2017 INDICATION: Severe aortic stenosis. HISTORY OF PRESENT ILLNESS: This is an 82-year-old gentleman who initially presented with progressive shortness of breath and syncope. He follows with Dr. Grove on an outpatient basis. He was evaluated by Dr. Ortega and found to have severe aortic valve stenosis. Underwent cardiac catheterization, which revealed some moderate branch vessel coronary disease. Given the progressive symptoms with Z[place]bach Heart Association class 3 or 4, he was evaluated for surgical aortic valve replacement. The patient is felt to be a higher risk and therefore transcatheter aortic valve replacement was considered. He is now here for planned procedure. PAST MEDICAL HISTORY: Aortic valve stenosis, hypertension, diabetes, osteoarthritis, hyperlipidemia, BPH. REPORTED MEDICATIONS: 1. Aspirin. 2. Rosuvastatin. 3. Finasteride. 4. Levothyroxine. 5. Metformin. 6. Tamsulosin. 7. Atenolol. 8. Enalapril. ALLERGIES: NO KNOWN DRUG ALLERGIES. FAMILY HISTORY: Denies any family history of early coronary disease. No sudden cardiac . SOCIAL HISTORY: Denies alcohol, tobacco or drug use. REVIEW OF SYSTEMS: A 12-point review of systems was performed and is negative unless otherwise as noted in the history of present illness. PHYSICAL EXAM: VITAL SIGNS: Temperature 98, pulse 72, blood pressure 110/55 mmHg. GENERAL: Alert and oriented x 3 in no acute distress. HEENT: Shows pupils reactive to light and accommodation. Extraocular movements are intact. NECK: No elevation of jugular venous distention. No thyromegaly. No lymphadenopathy and no carotid bruits. LUNGS: Clear to auscultation bilaterally. CARDIAC: Regular rate and rhythm. A 3/6 crescendo/decrescendo murmur at the right sternal border. ABDOMEN: Nontender, nondistended with good bowel sounds. No hepatosplenomegaly. EXTREMITIES: Show no clubbing, cyanosis or edema. Good peripheral pulses. NEUROLOGIC: Cranial nerves intact. Motor and sensory grossly intact. LABORATORY DATA: WBC 5.3, hemoglobin is 11.8, platelet count is 150. INR is 1. Sodium 140, potassium 4.5, BUN is 27, creatinine is 1.61. ASSESSMENT: Severe aortic valve stenosis. PREPROCEDURE WORKUP: STS score of 4.9%, Ziebach Heart Association class 3/4 heart failure. BMI 45.9, frailty is 2/4. Pulmonary function test from 12/16/2017 shows FEV1 of 1.22 with moderate obstructive disease. Echocardiogram 12/15/2017 shows a peak TR velocity 5.35 meters per second, mean gradient 35 mmHg. Calculated aortic valve area 0.5 cm2. Ejection fraction 60 percent. Aortic Insufficiency, mild. Cardiac catheterization 12/15/2017 shows branch vessel coronary disease with the circumflex coronary artery with 70% stenosis, medically managed. CT scan 12/19/2017 showed annulus diameter of 23.5 mm long, annulus diameter 32.8 mm, annular area 590.9 mm2, planned valve size [address] scan shows sinus of Valsalva diameter of 32.3 mm, sinotubular junction diameter of 35.2 mm. Left coronary at 15.5 mm and right coronary artery 25.2 mm, right common iliac artery 9.0 mm, left common iliac artery 9.9 mm, minimal luminal diameter in the right common iliac systems was 9.0 mm and in the left is 9.9 mm. PLAN: We will plan for transcatheter aortic valve replacement from the right common femoral artery approach. We will be using an Bowling 29 mm S3 valve. Risks, benefits and alternatives discussed with the patient including need for pacemaker, internal bleeding, stroke and potentially . The patient and family are agreeable to proceed. Brendon Dominguez MD SAI/DL , 10:04 AM , 10:28 AM
--- NOTE | 2017-12-26 11:01 | MA ---
cc: Brendon Dominguez MD DATE: 12/26/2017 PROCEDURES PERFORMED: Transcatheter aortic valve replacement. SECURITY CONTROLS ASSESSOR: Brendon Dominguez MD, [facility] PRIMARY SURGICAL TURBINE ENGINEER: Dr. Pati Shepard. PROCEDURES PERFORMED: 1. Fluoroscopy with interpretation. 2. Temporary transvenous pacemaker placement. 3. Transesophageal echocardiogram. 4. Ascending aortography. 5. Left heart catheterization. 6. Aortic valvuloplasty. 7. Transcatheter aortic valve replacement. METHOD: The risks, benefits and alternatives were discussed with the patient. The patient understood and consented to the procedure The patient was brought in the cardiac catheterization lab, placed on the catheterization table. Bilateral groins were prepped and draped in sterile fashion. The left groin was anesthetized with 2% lidocaine. The left common femoral artery was cannulated and a 5-Omani, 11 cm sheath was placed. Left femoral vein was accessed and a 5-Omani, 11 cm sheath was placed. The right femoral artery was accessed under fluoroscopic and angiographic guidance and a micropuncture sheath placed, followed by an 8-Omani catheter. Two Perclose devices were deployed in a Perclose fashion. Heparin was administered throughout the entire procedure to maintain appropriate anticoagulation. TEMPORARY TRANSVENOUS PACEMAKER PLACEMENT: A 5-Omani balloon tipped temporary transvenous pacemaker was advanced to the right ventricular apex. Appropriate pacing and capture was confirmed. Transesophageal echocardiogram; please see detailed report separately. ASCENDING AORTOGRAPHY: Ascending aortography was performed in left anterior oblique 16 and cranial 3-view. The 3 aortic cusps were well visualized and parallel. The ascending aorta was not significantly dilated. AORTIC VALVULOPLASTY: A 25 mm Bowling balloon was prepped. AL1 catheter was advanced to the ascending aorta. Straight-tipped Amplatz Super Stiff wire was advanced across the aortic valve and into the left ventricle, the AL1 advanced into the left ventricle. A 0.035-inch, 260 cm exchange length wire was advanced into the left ventricle, the AL1 catheter removed. A 6-Omani pigtail catheter was advanced to the left ventricular apex and a Mutualinka PRX wire 0.035 inch was advanced to the left ventricular apex, pigtail removed. The 25 mm Bowling balloon was then advanced across the aortic valve. Under rapid pacing the balloon was deployed. Repeat transesophageal echocardiogram showed mild to moderate aortic insufficiency present. TRANSCATHETER AORTIC VALVE REPLACEMENT: A 29 mm Bowling S3 valve was then prepped, advanced up and around the arch. The Bowling S3 valve was then advanced across the [place] aortic valve under angiographic and fluoroscopic guidance. The valve was positioned appropriately. Under rapid pacing, the device was then successfully deployed. Repeat transesophageal echocardiogram revealed good place and with no significant paravalvular leak. The left femoral artery and vein sheaths were closed with 5-Omani Mynx hemostatic device. The right common femoral artery was then closed with 2 Perclose devices with good hemostasis. Postoperative aortic valve parameters MAGALIE 2.09 cm2 mean gradient 5 mmHg peak velocity 1.53 cm/s trace paravalvular leak CONCLUSIONS: 1. Severe aortic valve stenosis. 2. Successful transcatheter aortic valve replacement. 3. Successful aortic valvuloplasty. 4. Successful utilization of transesophageal echocardiogram and temporary transvenous pacemaker placement. PLAN: The patient will be monitored closely for any postprocedural complications. Hopefully, this will translate well to symptomatic improvement. We will plan for limited transthoracic echocardiogram tomorrow morning in addition to a chest x-ray. MD ASI Campbell/SB , 10:34 AM , 11:00 AM DONYA
--- NOTE | 2017-12-26 11:17 | RADRPT ---
EXAM DATE: 12/26/2017 11:10 AM EDT AGE/SEX: 82 years / Male INDICATIONS: Chest pain. CLINICAL DATA: This is the patient's initial encounter. Patient reports that signs and symptoms have been present for 1 day and indicates a pain score of 2/10. MEDICAL/SURGICAL HISTORY: None. None. COMPARISON: [facility] [place], CHEST SINGLE AP, 12/14/2017. . FINDINGS: A single portable frontal view the chest is lordotic in position. Bibasilar parenchymal consolidation s . The left is unchanged. The right is new. Cardiomegaly. Eventration of the right hemidiaphragm. Ti ny right effusion blunts the costophrenic angle which is stable. Scoliotic and degenerative spine. Ad vanced osteoarthritis of the shoulders bilaterally. Stent-mounted aortic valve. CONCLUSION: 1. Cardiomegaly with bibasilar consolidations and small right effusion. Right basilar consolidati on is new from the prior study. Electronically signed by: Antoine Coronado MD 12/26/2017 11:15 AM EDT
[2017-12-26 11:41] LABS: HEMATOCRIT 33.9 % (39.0-51.0); HEMOGLOBIN 11.4 GM/DL (13.0-17.0); MEAN CELL VOLUME 88.8 FL (80.0-100.0); MEAN CORPUSCULAR HGB CONC 33.8 % (32.0-36.0); MEAN PLATELET VOLUME 9.1 FL (7.0-11.0); PLATELET COUNT 146 TH/MM3 (150-450); RED BLOOD COUNT 3.82 MIL/MM3 (4.50-5.90); RED CELL DISTRIBUTION WIDTH 14.2 % (11.6-17.2); WHITE BLOOD COUNT 6.9 TH/MM3 (4.0-11.0)
[2017-12-26] MEDS ORDERED: PHENYLEPH/NS 1000 MCG/10 ML SYR IV ONE (12:00)
[2017-12-26] MEDS ORDERED: PROPOFOL 200 MG/20 ML AMP IV ONE (12:00)
[2017-12-26] MEDS ORDERED: SUCCINYLCHOLINE CHLORIDE 100 MG/5 ML SYRINGE IV PUSH ONE (12:00)
[2017-12-26] MEDS ORDERED: ONDANSETRON HCL 4 MG/2 ML VIAL IV ONE (12:00)
[2017-12-26] MEDS ORDERED: ROCURONIUM INJ 50 MG/5 ML SYRINGE IV PUSH ONE (12:00)
[2017-12-26] MEDS: INSULIN NovoLIN REGULAR SUPPLEMENTAL SCALE SQ SCH ×3 (12:00→21:38)
[2017-12-26] MEDS ORDERED: DEXAMETHASONE SOD PHOS 4 MG/ML VIAL IV ONE (12:00)
[2017-12-26] MEDS ORDERED: LIDOCAINE HCL 1% PF 5 ML SYRINGE OTHER ONE (12:00)
[2017-12-26 12:15] LABS: BICARBONATE 24.8 MEQ/L (21.0-32.0); CALCIUM 8.2 MG/DL (8.5-10.1); CREATININE 1.42 MG/DL (0.60-1.30)
[2017-12-26] MEDS ORDERED: hydrALAZINE HCL 20 MG/ML VIAL IV PUSH PRN (12:15)
--- NOTE | 2017-12-26 12:54 | PD.CAR.PN ---
CVT Progress Note Subjective/Hospital Course: 82-year-old male, patient of Dr. Grove, Dr. James Aguirre, initially seen . Multiple comorbidities, known severe aortic stenosis, had refused intervention on his valve in the past. Apparently was sitting at home at the breakfast table, became short of breath, which got severe to the point where he nearly passed out. The ER doctor reported he had chest tightness, but per the notes, when Dr. Ortega evaluated him, he did not have chest discomfort. He is quite sedentary at home. He uses a walker to get around. They did a 2-D echo, which showed aortic valve area 0.53 with a mean gradient of 75, moderate concentric left ventricular hypertrophy, ejection fraction 60-65%. He then underwent cardiac catheterization by Dr. Ortega, which showed the LAD having proximal and mid-disease of 50%, the distal circumflex had 70% stenosis; however , it was felt by Cardiology that best approach would be to treat medically. We were, however, consulted to evaluate for candidacy for transcatheter aortic valve replacement. PAST MEDICAL HISTORY: Includes morbid obesity with a BMI of 41, type 2 diabetes , chronic lymphedema, hyperlipidemia, hypertension, neuropathy, sleep apnea, benign prostatic hypertrophy and hypothyroidism. 12/26 pt electively admitted for surgery Transcatheter aortic valve replacement with a 29 Livia 3 tissue valve Balloon aortic valvuloplasty with a 25x4 Bowling balloon Percutaneous bilateral femoral artery access with Perclose closure on right Percutaneous left femoral vein access Fluoroscopy aortography Objective: Vital Signs Date Time Temp Pulse Resp B/P (MAP) Pulse Ox O2 Delivery O2 Flow Rate FiO2 12/26/17 12:03 99 Nasal Cannula 4.00 12/26/17 11:00 70 12/26/17 11:00 97.0 69 20 141/69 (93) 98 12/26/17 11:00 99 Nasal Cannula 5.00 12/26/17 11:00 69 12/26/17 10:30 98 Nasal Cannula 5.00 12/26/17 10:16 73 20 124/81 (95) 99 132/73 (92) 12/26/17 09:55 70 12/26/17 09:55 99 Simple Mask 8.00 12/26/17 09:55 96.8 70 20 129/72 (91) 99 146/71 (96) 12/26/17 09:55 70 12/26/17 06:12 98.0 72 18 110/55 (73 94 Labs: Laboratory Tests Test 12/26/17 06:30 12/26/17 11:10 White Blood Count 5.3 TH/MM3 (4.0-11.0) 6.9 TH/MM3 (4.0-11.0) Red Blood Count 4.00 MIL/MM3 (4.50-5.90) 3.82 MIL/MM3 (4.50-5.90) Hemoglobin 11.8 GM/DL (13.0-17.0) 11.4 GM/DL (13.0-17.0) Hematocrit 35.4 % (39.0-51.0) 33.9 % (39.0-51.0) Mean Corpuscular Volume 88.6 FL (80.0-100.0) 88.8 FL (80.0-100.0) Mean Corpuscular Hemoglobin 29.5 PG (27.0-34.0) 30.0 PG (27.0-34.0) Mean Corpuscular Hemoglobin Concent 33.3 % (32.0-36.0) 33.8 % (32.0-36.0) Red Cell Distribution Width 14.3 % (11.6-17.2) 14.2 % (11.6-17.2) Platelet Count 150 TH/MM3 (150-450) 146 TH/MM3 (150-450) Mean Platelet Volume 8.9 FL (7.0-11.0) 9.1 FL (7.0-11.0) Neutrophils (%) (Auto) 58.6 % (16.0-70.0) Lymphocytes (%) (Auto) 28.1 % (9.0-44.0) Monocytes (%) (Auto) 11.0 % (0.0-8.0) Eosinophils (%) (Auto) 1.7 % (0.0-4.0) Basophils (%) (Auto) 0.6 % (0.0-2.0) Neutrophils # (Auto) 3.1 TH/MM3 (1.8-7.7) Lymphocytes # (Auto) 1.5 TH/MM3 (1.0-4.8) Monocytes # (Auto) 0.6 TH/MM3 (0-0.9) Eosinophils # (Auto) 0.1 TH/MM3 (0-0.4) Basophils # (Auto) 0.0 TH/MM3 (0-0.2) CBC Comment DIFF FINAL Differential Comment Prothrombin Time 10.2 SEC (9.8-11.6) Prothromb Time International Ratio 1.0 RATIO Blood Urea Nitrogen 27 MG/DL (7-18) 24 MG/DL (7-18) Creatinine 1.61 MG/DL (0.60-1.30) 1.42 MG/DL (0.60-1.30) Random Glucose 104 MG/DL (74-106) 122 MG/DL (74-106) Calcium Level 8.9 MG/DL (8.5-10.1) 8.2 MG/DL (8.5-10.1) Sodium Level 140 MEQ/L (136-145) 139 MEQ/L (136-145) Potassium Level 4.5 MEQ/L (3.5-5.1) 4.4 MEQ/L (3.5-5.1) Chloride Level 103 MEQ/L (98-107) 105 MEQ/L (98-107) Carbon Dioxide Level 29.0 MEQ/L (21.0-32.0) 24.8 MEQ/L (21.0-32.0) Anion Gap 8 MEQ/L (5-15) 9 MEQ/L (5-15) Estimat Glomerular Filtration Rate 41 ML/MIN (>89) 48 ML/MIN (>89) Result Diagram: 12/26/17 1110 12/26/17 1110 (1) S/P TAVR (transcatheter aortic valve replacement) (2) Aortic stenosis (3) Diastolic heart failure (4) Coronary artery disease Melodie Bertrand Dec 26, 2017 12:54
[2017-12-26] MEDS ORDERED: CLOPIDOGREL 300 MG TAB PO ONE (13:00)
--- NOTE | 2017-12-26 13:04 | PD.WCN.NOT ---
Wound Consult Description: Wound care consult ordered by Jerry DOSHI for wound management. Communicated with: Sury DOWLING, Recommendation: 1. Perform shaving cream therapy to bilateral lower extremities daily x5 days. ( Apply thick layer of shaving cream therapy to lower extremities,Wrap extremities in warm moist towel let sit for 10min clean shaving cream off moisturize.) 2. Encourage patient avoid prolong standing and sodium to reduce edema.Elevate lower extremities when in bed. 3. If legs start weeping place lower extremities on UltraSorb moisture wicking pad leave open to air. Additional Information: Patient was seen today by freelance copywriter and Sury DOWLING for wound care management.Patient alert and oriented x4 [place].States lymphedema is a chronic issue in lower extremities that he use to get massage for.Bilateral lower extremities have +3 pitting edema with scaling noted to bilateral gaiter areas.No open areas visualized.Patient has weak but palpable bilat pedal pulses.Patient noted to have scaling and crusting skin in gaiter areas which shaving cream therapy will help reduce.Patient unable to be repositioned at this time due to post op limitation but states he had no discomfort or open areas on posterior body.Sury DOWLING will consult wound nurse if there are any area of concern when able to turn patient.No compression wraps recommended for this patient due to History of CHF and other co-morbidities. Ostomy Date of Surgery: Dec 26, 2017 Valeria Wilkerson [facility] Dec 26, 2017 13:04
[2017-12-26] MEDS: FERROUS SULFATE 325 MG (65 MG ELEMENTAL IRON) TAB PO SCH (13:20)
[2017-12-26] MEDS: FUROSEMIDE 40 MG/4 ML VIAL IV PUSH SCH (13:20)
--- NOTE | 2017-12-26 13:40 | ECHRPT ---
Indication: CONCLUSIONS Successful bioprosthetic transcatheter aortic valve replacement. BP: / HR: Rhythm: Technical Quality: Medications Complications Proc. Components The patient was brought to the diagnostic imaging area in a fasting state after o btaining an informed consent. The patient was premedicated with IV Versed and IV Fentanyl. The sales developer ior pharynx was sprayed with Cetacaine spray and the patient was administered viscous Xylocaine 2 %. The DALLAS probe was passed into the posterior pharynx , mid-esophagus, distal esophagus, and gastric fundus. DALLAS was performed at multiple levels. The patient tolerated the procedure well and there were no complications. The patient was transferred to the floor in satisfactory condition.. FINDINGS LEFT VENTRICLE Normal left ventricular size and wall thickness. The left ventricular systolic function is normal wi th an estimated ejection fraction in the range of 60-65%. Left ventricular diastolic function parameters a re normal. AORTIC VALVE Trileaflet aortic valve. Mild aortic valve regurgitation. Severe aortic valve stenosis. Procedure performed: Status post bioprosthetic transcatheter aortic valve replacement. Brendon Dominguez MD, FACC (Electronically Signed) Final Date:26 December 2017 13:39
--- NOTE | 2017-12-26 14:47 | EKG ---
Date Performed: 12/26/2017 Time Performed: 06:24:50 PTAGE: 82 years EKG: Sinus rhythm with frequent PVCs. IV conduction defect Inferior infarct - age undetermined Lateral ST-T changes ma y be due to myocardial ischemia Abnormal ECG PREVIOUS TRACING : 12/15/2017 00.04 Since the previous tracing, no significant change noted DOCTOR: Ry Lynn Interpretating Date/Time 12/26/2017 14:46:32
--- NOTE | 2017-12-26 14:48 | EKG ---
Date Performed: 12/26/2017 Time Performed: 10:12:24 PTAGE: 82 years EKG: Sinus rhythm IV conduction defect Inferior infarct - age undetermined Lateral ST-T changes are nonspecific Low QR S voltages in precordial leads Abnormal ECG PREVIOUS TRACING : 12/26/2017 06.24 Since the previous tracing, no significant change noted DOCTOR: Ry Lynn Interpretating Date/Time 12/26/2017 14:46:45
[2017-12-26] MEDS ORDERED: RESP: ALBUTEROL 2.5 MG/IPRATROPIUM 0.5 MG NEB (PRN) NEB (17:30)
--- NOTE | 2017-12-26 18:08 | MB ---
cc: Belkis Montelongo MD DATE: 12/26/2017 DATE OF : 1935 HISTORY OF PRESENT ILLNESS: The patient is an 82-year-old male with a past medical history of aortic stenosis, hypertension, diabetes mellitus, osteoarthritis, hyperlipidemia, BPH, who is being followed by Dr. Grove on an outpatient basis. The patient was evaluated by Dr. Ortega and found to have severe aortic stenosis. He underwent a cardiac catheterization by Dr. Ortega on 12/16/2017 which showed known severe aortic stenosis, two vessel disease. The patient was evaluated by Dr. Rosas from thoracic surgery for TAVR and he underwent a transcatheter aortic valve replacement this morning. Critical Care Medicine was consulted for critical care management. When seen, the patient is on 2 liters oxygen with a saturation of 97%. His current blood pressure is 128/74 with a pulse of 72. The patient is not on any drips and he denies any chest pain or shortness of breath. A chest x-ray from earlier today showed cardiomegaly with bibasilar consolidation and small right effusion. PAST MEDICAL HISTORY: Significant for morbid obesity, diabetes mellitus, hyperlipidemia, hypertension, neuropathy, sleep apnea, BPH, hypothyroidism. ALLERGIES: NO KNOWN DRUG ALLERGIES. FAMILY HISTORY: No history of sudden cardiac . SOCIAL HISTORY: Nonsmoker, nondrinker. REPORTED MEDICATIONS: 1. Aspirin. 2. Finasteride. 3. Levothyroxine. 4. Metformin. 5. Atenolol. 6. Enalapril. REVIEW OF SYSTEMS: As per HPI. Rest of review of systems unremarkable. PHYSICAL EXAMINATION: GENERAL: An 82-year-old male sitting up in chair in no acute respiratory distress. VITAL SIGNS: Temperature 97.2, pulse of 73, respiratory rate 20, blood pressure 128/74, saturation 97% on 2 liters oxygen. HEENT: Atraumatic and normocephalic. Pupils equal, round, reactive to light and accommodation. Extraocular muscles intact. Conjunctivae pink. Nonicteric sclerae. Oral mucosa within normal. NECK: Supple. No JVD, adenopathy or thyromegaly. Trachea in the midline. CARDIOVASCULAR: Regular rate and rhythm. Normal S1, S2. Murmur noted at the right sternal border. ABDOMEN: Soft, nontender, nondistended, positive bowel sounds. EXTREMITIES: No cyanosis, clubbing. Nonpitting edema. NEUROLOGIC: No focal sensory deficit. LABORATORY DATA: WBC 6.9, hemoglobin 11.4, hematocrit 33, platelet count 146. Sodium 139, potassium 4.5, chloride 105, CO2 24, BUN 24, creatinine 1.42, glucose of 122. RADIOGRAPHIC STUDIES: A chest x-ray showed bibasilar consolidation, cardiomegaly. IMPRESSION: 1. Respiratory insufficiency. 2. Severe aortic valve stenosis. 3. Status post transcatheter aortic valve replacement. 4. Hypertension. 5. Diabetes mellitus. 6. Hyperlipidemia. 7. Morbid obesity. RECOMMENDATIONS: 1. Monitor neuro status closely and avoid any sedatives. 2. Continue with oxygen to maintain sats above 92%. 3. Bronchodilators in the form of DuoNeb q. 6 plus q.2 p.r.n. for shortness of breath. 4. Incentive spirometry q.1 hour while awake. 5. Monitor heart rate and blood pressure closely and maintain MAP greater than 65 mmHg. 6. Continue with aspirin 81 mg daily, Lipitor 40 mg daily, Plavix 75 mg daily and Lasix 40 mg IV daily. 7. The patient for a repeat limited 2-D echo. 8. Monitor renal function, I's and O's and electrolyte replacement per protocol. Continue with diuretics as stated above. 9. Continue with Flomax 0.8 mg p.o. at bedtime and Proscar 5 mg daily. 10. The patient is on a p.o. diet. 11. Perioperative antibiotics per CT Surgery. He is on cefazolin. 12. Monitor for signs of infection, which include fever and WBC. 13. We will place on sliding scale insulin with Accu-Cheks to maintain euglycemia. 14. Continue with Synthroid 100 mcg daily. Check baseline TSH level. 15. No indications for GI prophylaxis and deep venous thrombosis prophylaxis with sequential compression devices. Chemical anticoagulation prophylaxis once cleared by CT Surgery. 16. Further recommendations will be based on hospital course. MD EMANUEL Carrion/MONIQUE , 05:31 PM , 06:07 PM
[2017-12-26] MEDS ORDERED: TAMSULOSIN HCL 0.4 MG CAP PO SCH (21:00)
[2017-12-27] VITALS (17 sets, daily range): BP systolic 111–143; BP diastolic 42–71; PULSE 61–92; RESP 16–20; TEMP 97.5–98.6; O2SAT 94–99
[2017-12-27] MEDS: RESP: ALBUTEROL 2.5 MG/IPRATROPIUM 0.5 MG NEB (SCH) NEB ×3 (03:38→15:47)
[2017-12-27 05:08] LABS: AUTOMATED NEUTROPHIL # 7.4 TH/MM3 (1.8-7.7); BASOPHIL % 0.4 % (0.0-2.0); HEMATOCRIT 34.3 % (39.0-51.0); HEMOGLOBIN 11.5 GM/DL (13.0-17.0); LYMPH % 11.4 % (9.0-44.0); LYMPHOCYTE # 1.1 TH/MM3 (1.0-4.8); MEAN CELL VOLUME 87.8 FL (80.0-100.0); MEAN CORPUSCULAR HEMOGLOBIN 29.5 PG (27.0-34.0); MEAN CORPUSCULAR HGB CONC 33.6 % (32.0-36.0); MONO % 9.8 % (0.0-8.0); MONOCYTE # 0.9 TH/MM3 (0-0.9); NEUT % 78.4 % (16.0-70.0); PLATELET COUNT 149 TH/MM3 (150-450); RED BLOOD COUNT 3.91 MIL/MM3 (4.50-5.90); RED CELL DISTRIBUTION WIDTH 13.7 % (11.6-17.2); WHITE BLOOD COUNT 9.4 TH/MM3 (4.0-11.0)
[2017-12-27 05:11] LABS: ALBUMIN 3.3 GM/DL (3.4-5.0); ALT (GPT) 25 U/L (12-78); AST (GOT) 22 U/L (15-37); BICARBONATE 24.9 MEQ/L (21.0-32.0); BLOOD UREA NITROGEN 24 MG/DL (7-18); CALCIUM 8.4 MG/DL (8.5-10.1); CHLORIDE 103 MEQ/L (98-107); CREATININE 1.45 MG/DL (0.60-1.30); GLOMERULAR FILTRATION RATE 46 ML/MIN (>89); GLUCOSE,RANDOM 115 MG/DL (74-106); PHOSPHORUS 3.2 MG/DL (2.5-4.9); SODIUM (NA) 138 MEQ/L (136-145)
[2017-12-27 05:22] LABS: ALKALINE PHOSPHATASE 76 U/L (45-117); TOTAL BILIRUBIN ADULT 0.3 MG/DL (0.2-1.0); TOTAL PROTEIN 6.6 GM/DL (6.4-8.2)
[2017-12-27] MEDS ORDERED: LEVOTHYROXINE SODIUM 100 MCG TAB PO SCH (06:00)
[2017-12-27] MEDS: INSULIN NovoLIN REGULAR SUPPLEMENTAL SCALE SQ SCH ×3 (07:34→16:50)
--- NOTE | 2017-12-27 08:26 | HHI.DS ---
Discharge Summary Admission Date Dec 26, 2017 at 05:19 Discharge Date: Dec 27, 2017 Admitting Diagnosis Aortic stenosis (1) S/P TAVR (transcatheter aortic valve replacement) ICD Codes: Z95.2 - Presence of prosthetic heart valve Procedures transcatheter aortic valve replacement Brief History presented with shortness of breath, NYHA functional class III/IV CBC/BMP: 12/27/17 0430 12/27/17 0430 Significant Findings Laboratory Tests Test 12/26/17 06:30 12/26/17 11:10 12/27/17 04:30 Red Blood Count 4.00 MIL/MM3 (4.50-5.90) 3.82 MIL/MM3 (4.50-5.90) 3.91 MIL/MM3 (4.50-5.90) Hemoglobin 11.8 GM/DL (13.0-17.0) 11.4 GM/DL (13.0-17.0) 11.5 GM/DL (13.0-17.0) Hematocrit 35.4 % (39.0-51.0) 33.9 % (39.0-51.0) 34.3 % (39.0-51.0) Monocytes (%) (Auto) 11.0 % (0.0-8.0) 9.8 % (0.0-8.0) Blood Urea Nitrogen 27 MG/DL (7-18) 24 MG/DL (7-18) 24 MG/DL (7-18) Creatinine 1.61 MG/DL (0.60-1.30) 1.42 MG/DL (0.60-1.30) 1.45 MG/DL (0.60-1.30) Estimat Glomerular Filtration Rate 41 ML/MIN (>89) 48 ML/MIN (>89) 46 ML/MIN (>89) Platelet Count 146 TH/MM3 (150-450) 149 TH/MM3 (150-450) Random Glucose 122 MG/DL (74-106) 115 MG/DL (74-106) Calcium Level 8.2 MG/DL (8.5-10.1) 8.4 MG/DL (8.5-10.1) Neutrophils (%) (Auto) 78.4 % (16.0-70.0) Albumin 3.3 GM/DL (3.4-5.0) Imaging Last Impressions Chest X-Ray 12/26/17 0000 Signed Impressions: CONCLUSION: 1. Cardiomegaly with bibasilar consolidations and small right effusion. Rig ht basilar consolidation is new from the prior study. PE at Discharge HEAD: Normocephalic. EYES: No scleral icterus. No injection or drainage. NECK: Supple, trachea midline. No JVD or lymphadenopathy. CARDIOVASCULAR: Regular rate and rhythm without murmurs, gallops, or rubs. RESPIRATORY: Breath sounds equal bilaterally. No accessory muscle use. GASTROINTESTINAL: Abdomen soft, non-tender, nondistended. MUSCULOSKELETAL: No cyanosis, 4+ edema. BACK: Nontender without obvious deformity. No CVA tenderness. Hospital Course s/p TAVR no post-operative complications sitting up eating breakfast Pt Condition on Discharge: Good Discharge Disposition: Discharge Home Discharge Instructions DIET: Follow Instructions for: Heart Healthy Diet, Diabetic Diet Activities you can perform: Weight Bearing as Jesse Follow up Referrals: Cardiology - [address] [facility] New Medications: Clopidogrel (Plavix) 75 Mg Tab 75 MG PO DAILY for TAVR, #30 TAB 3 Refills Continued Medications: Aspirin (Aspirin) 81 Mg Chew 81 MG CHEW DAILY, TAB 0 Refills Enalapril (Enalapril) 10 Mg Tab 10 MG PO DAILY, #30 TAB 0 Refills Finasteride (Finasteride) 5 Mg Tab 5 MG DAILY for Manage Prostate Problems, #30 TAB 0 Refills Do not crush. Hydrocodone-Acetaminophen (Hydrocodone-Acetaminophen) 5-325 mg Tab 1 TAB PO Q4H PRN for PAIN, TAB 0 Refills Levothyroxine (Levothyroxine) 100 Mcg Tab 100 MCG PO DAILY for Thyroid, #30 TAB 0 Refills Metformin (Metformin) 500 Mg Tab 500 MG PO BIDPC for Blood Sugar Management, #60 TAB 0 Refills Rosuvastatin (Rosuvastatin) 20 Mg Tab 20 MG PO DAILY for Cholesterol Management, #30 TAB 0 Refills Tamsulosin (Tamsulosin) 0.4 Mg Cap 0.8 MG PO HS for Manage Prostate Problems, #60 CAP 0 Refills Discontinued Medications: Atenolol-Chlorthalidone (Atenolol-Chlorthalidone) 100-25 Mg Tab 1 TAB PO DAILY for Blood Pressure Management, #30 TAB 0 Refills Brendon Dominguez MD Dec 27, 2017 08:26
[2017-12-27] MEDS ORDERED: PLAV75TA29 PO (08:27)
--- NOTE | 2017-12-27 08:35 | PD.CAR.PN ---
CVT Progress Note Subjective/Hospital Course: 82-year-old male, patient of Dr. Grove, Dr. James Aguirre, initially seen . Multiple comorbidities, known severe aortic stenosis, had refused intervention on his valve in the past. Apparently was sitting at home at the breakfast table, became short of breath, which got severe to the point where he nearly passed out. The ER doctor reported he had chest tightness, but per the notes, when Dr. Ortega evaluated him, he did not have chest discomfort. He is quite sedentary at home. He uses a walker to get around. They did a 2-D echo, which showed aortic valve area 0.53 with a mean gradient of 75, moderate concentric left ventricular hypertrophy, ejection fraction 60-65%. He then underwent cardiac catheterization by Dr. Ortega, which showed the LAD having proximal and mid-disease of 50%, the distal circumflex had 70% stenosis; however , it was felt by Cardiology that best approach would be to treat medically. We were, however, consulted to evaluate for candidacy for transcatheter aortic valve replacement. PAST MEDICAL HISTORY: Includes morbid obesity with a BMI of 41, type 2 diabetes , chronic lymphedema, hyperlipidemia, hypertension, neuropathy, sleep apnea, benign prostatic hypertrophy and hypothyroidism. 12/26 pt electively admitted for surgery Transcatheter aortic valve replacement with a 29 Livia 3 tissue valve Balloon aortic valvuloplasty with a 25x4 Bowling balloon Percutaneous bilateral femoral artery access with Perclose closure on right Percutaneous left femoral vein access Fluoroscopy aortography 612 doing well, on 02 2 liters temp pacer dc for possible dc later today chronic oneyda lower ext lymph edema / wound care following Objective: GENERAL: SKIN: Warm and dry. left sub cordis in place, bilateral dressing place to both groin , no hematoma HEAD: Normocephalic. EYES: No scleral icterus. No injection or drainage. NECK: Supple, trachea midline. No JVD or lymphadenopathy. CARDIOVASCULAR: Regular rate and rhythm without murmurs, gallops, or rubs. RESPIRATORY: Breath sounds equal bilaterally. No accessory muscle use. GASTROINTESTINAL: Abdomen soft, non-tender, nondistended. MUSCULOSKELETAL: No cyanosis, or edema. BACK: Nontender without obvious deformity. No CVA tenderness. Vital Signs Date Time Temp Pulse Resp B/P (MAP) Pulse Ox O2 Delivery O2 Flow Rate FiO2 12/27/17 07:00 66 12/27/17 06:29 98 Nasal Cannula 2.00 12/27/17 04:00 79 12/27/17 04:00 93 Room Air 12/27/17 04:00 98.6 71 20 133/67 (89) 97 111/42 (65) 12/27/17 03:00 61 12/27/17 00:00 64 12/27/17 00:00 98 Nasal Cannula 2.00 12/27/17 00:00 98.3 61 19 143/71 (95) 96 140/50 (80) 12/26/17 23:00 77 12/26/17 21:10 96 Nasal Cannula 2.00 12/26/17 20:00 99 Nasal Cannula 2.00 12/26/17 20:00 98.3 74 20 101/67 (78) 96 127/61 (83) 12/26/17 20:00 74 12/26/17 19:00 74 12/26/17 15:35 97 Nasal Cannula 2.00 12/26/17 15:33 100 12/26/17 15:00 97.2 73 20 117/74 (88) 97 113/63 (80) 12/26/17 15:00 100 12/26/17 12:03 99 Nasal Cannula 4.00 12/26/17 11:00 70 12/26/17 11:00 97.0 69 20 141/69 (93) 98 12/26/17 11:00 99 Nasal Cannula 5.00 12/26/17 11:00 69 12/26/17 10:30 98 Nasal Cannula 5.00 12/26/17 10:16 73 20 124/81 (95) 99 132/73 (92) 12/26/17 09:55 70 12/26/17 09:55 99 Simple Mask 8.00 12/26/17 09:55 96.8 70 20 129/72 (91) 99 146/71 (96) 12/26/17 09:55 70 Labs: Laboratory Tests Test 12/27/17 04:30 White Blood Count 9.4 TH/MM3 (4.0-11.0) Red Blood Count 3.91 MIL/MM3 (4.50-5.90) Hemoglobin 11.5 GM/DL (13.0-17.0) Hematocrit 34.3 % (39.0-51.0) Mean Corpuscular Volume 87.8 FL (80.0-100.0) Mean Corpuscular Hemoglobin 29.5 PG (27.0-34.0) Mean Corpuscular Hemoglobin Concent 33.6 % (32.0-36.0) Red Cell Distribution Width 13.7 % (11.6-17.2) Platelet Count 149 TH/MM3 (150-450) Mean Platelet Volume 9.0 FL (7.0-11.0) Neutrophils (%) (Auto) 78.4 % (16.0-70.0) Lymphocytes (%) (Auto) 11.4 % (9.0-44.0) Monocytes (%) (Auto) 9.8 % (0.0-8.0) Eosinophils (%) (Auto) 0.0 % (0.0-4.0) Basophils (%) (Auto) 0.4 % (0.0-2.0) Neutrophils # (Auto) 7.4 TH/MM3 (1.8-7.7) Lymphocytes # (Auto) 1.1 TH/MM3 (1.0-4.8) Monocytes # (Auto) 0.9 TH/MM3 (0-0.9) Eosinophils # (Auto) 0.0 TH/MM3 (0-0.4) Basophils # (Auto) 0.0 TH/MM3 (0-0.2) CBC Comment DIFF FINAL Differential Comment Blood Urea Nitrogen 24 MG/DL (7-18) Creatinine 1.45 MG/DL (0.60-1.30) Random Glucose 115 MG/DL (74-106) Total Protein 6.6 GM/DL (6.4-8.2) Albumin 3.3 GM/DL (3.4-5.0) Calcium Level 8.4 MG/DL (8.5-10.1) Phosphorus Level 3.2 MG/DL (2.5-4.9) Magnesium Level 2.0 MG/DL (1.5-2.5) Alkaline Phosphatase 76 U/L (45-117) Aspartate Amino Transf (AST/SGOT) 22 U/L (15-37) Alanine Aminotransferase (ALT/SGPT) 25 U/L (12-78) Total Bilirubin 0.3 MG/DL (0.2-1.0) Sodium Level 138 MEQ/L (136-145) Potassium Level 4.4 MEQ/L (3.5-5.1) Chloride Level 103 MEQ/L (98-107) Carbon Dioxide Level 24.9 MEQ/L (21.0-32.0) Anion Gap 10 MEQ/L (5-15) Estimat Glomerular Filtration Rate 46 ML/MIN (>89) Thyroid Stimulating Hormone 3rd Gen 2.740 uIU/ML (0.358-3.740) Result Diagram: 12/27/17 04312/27/17429 (1) S/P TAVR (transcatheter aortic valve replacement) Plan: on ASA plavix, rhythm stable dc home possible later today defer further orders to Dr Dominguez (2) Aortic stenosis (3) Diastolic heart failure (4) Coronary artery disease Melodie Bertrand Dec 27, 2017 08:35
[2017-12-27] MEDS ORDERED: ASPIRIN 81 MG CHEW TAB PO SCH (09:00)
[2017-12-27] MEDS ORDERED: ATORVASTATIN 40 MG TAB PO SCH (09:00)
[2017-12-27] MEDS ORDERED: CLOPIDOGREL 75 MG TAB PO SCH (09:00)
[2017-12-27] MEDS ORDERED: FINASTERIDE 5 MG TAB PO SCH (09:00)
[2017-12-27] MEDS: FUROSEMIDE 40 MG/4 ML VIAL IV PUSH SCH (09:10)
[2017-12-27] MEDS: FERROUS SULFATE 325 MG (65 MG ELEMENTAL IRON) TAB PO SCH (09:13)
--- NOTE | 2017-12-27 09:19 | ECHRPT ---
Indication: Heart failure, unspecified CONCLUSIONS s/p transcatheter aortic valve replacement. BP: / HR: Rhythm: MEASUREMENTS (Male / Female) Normal Values Technical Quality: 2D ECHO LVOT Diameter 2.0 cm M-MODE Aortic Root Diameter MM 3.8 cm LA Systolic Diameter MM 3.9 cm LA Ao Ratio MM 1.0 AV Cusp Separation MM 1.7 cm DOPPLER AV Peak Velocity 153.0 cm/s AV Peak Gradient 9.4 mmHg AV Mean Gradient 5.0 mmHg AV Velocity Time Integral 31.0 cm LVOT Peak Velocity 115.0 cm/s LVOT Peak Gradient 5.3 mmHg LVOT Velocity Time Integral 20.6 cm AV Area Cont Eq vti 2.1 cm AV Area Cont Eq pk 2.4 cm FINDINGS LEFT VENTRICLE Normal left ventricular size and wall thickness. The left ventricular systolic function is normal wi th an estimated ejection fraction in the range of 60-65%. Left ventricular diastolic function parameters a re normal. RIGHT VENTRICLE Normal right ventricular size and systolic function. LEFT ATRIUM The left atrial size is normal. RIGHT ATRIUM The right atrial size is normal. ATRIAL SEPTUM Normal atrial septal thickness without atrial level shunting by limited color doppler interrogation. AORTA The aortic root and proximal ascending aorta are not well visualized. MITRAL VALVE Structurally normal mitral valve. No mitral valve stenosis or regurgitation. AORTIC VALVE Trileaflet aortic valve. No aortic valve stenosis or regurgitation. Aortic valve area is 2.1 cm. Aortic valve mean gradient is 5 mmHg. s/p transcatheter aortic valve replacement TRICUSPID VALVE Structurally normal tricuspid valve. No tricuspid valve stenosis or regurgitation. PULMONARY VALVE The pulmonary valve is not well visualized. VESSELS The inferior vena cava is normal in size. PERICARDIUM No pericardial effusion. Brendon Dominguez MD, FACC (Electronically Signed) Final Date:27 December 2017 09:17
--- NOTE | 2017-12-27 10:15 | HHI.CCPN ---
Subjective Remarks/Hospital Course Patient is an 82-year-old male with a past medical history of aortic stenosis, hypertension, diabetes mellitus, osteoarthritis, hyperlipidemia, BPH, who is being followed by Dr. Grove on an outpatient basis. The patient was evaluated by Dr. Ortega and found to have severe aortic stenosis. He underwent a cardiac catheterization by on 12/16/2017 which showed known severe aortic stenosis, two vessel disease. The patient was evaluated by Dr. Rosas from thoracic surgery for TAVR and he underwent a transcatheter aortic valve replacement this morning. Critical Care Medicine was consulted for critical care management. When seen, the patient is on 2 liters oxygen with a saturation of 97%. His current blood pressure is 128/74 with a pulse of 72. The patient is not on any drips and he denies any chest pain or shortness of breath. A chest x-ray from earlier today showed cardiomegaly with bibasilar consolidation and small right effusion. 12/27 No events overnight. Patient denies any CP/SOB, on 2-3L oxygen, Afebrile. Objective Vital Signs Date Time Temp Pulse Resp B/P (MAP) Pulse Ox O2 Delivery O2 Flow Rate FiO2 12/27/17 09:20 99 Nasal Cannula 3.00 12/27/17 08:00 98.5 68 20 133/67 (89) 111/42 (65) Intake and Output 12/27/17 12/27/17 12/28/17 08:00 16:00 00:00 Intake Total 480 ml Output Total 775 ml Balance -295 ml Result Diagram: 12/27/17 0430 12/27/17 0430 Other Results Laboratory Tests Test 12/26/17 11:10 12/27/17 04:30 White Blood Count 6.9 TH/MM3 9.4 TH/MM3 Red Blood Count 3.82 MIL/MM3 3.91 MIL/MM3 Hemoglobin 11.4 GM/DL 11.5 GM/DL Hematocrit 33.9 % 34.3 % Mean Corpuscular Volume 88.8 FL 87.8 FL Mean Corpuscular Hemoglobin 30.0 PG 29.5 PG Mean Corpuscular Hemoglobin Concent 33.8 % 33.6 % Red Cell Distribution Width 14.2 % 13.7 % Platelet Count 146 TH/MM3 149 TH/MM3 Mean Platelet Volume 9.1 FL 9.0 FL Blood Urea Nitrogen 24 MG/DL 24 MG/DL Creatinine 1.42 MG/DL 1.45 MG/DL Random Glucose 122 MG/DL 115 MG/DL Calcium Level 8.2 MG/DL 8.4 MG/DL Sodium Level 139 MEQ/L 138 MEQ/L Potassium Level 4.4 MEQ/L 4.4 MEQ/L Chloride Level 105 MEQ/L 103 MEQ/L Carbon Dioxide Level 24.8 MEQ/L 24.9 MEQ/L Anion Gap 9 MEQ/L 10 MEQ/L Estimat Glomerular Filtration Rate 48 ML/MIN 46 ML/MIN Magnesium Level 1.8 MG/DL 2.0 MG/DL Neutrophils (%) (Auto) 78.4 % Lymphocytes (%) (Auto) 11.4 % Monocytes (%) (Auto) 9.8 % Eosinophils (%) (Auto) 0.0 % Basophils (%) (Auto) 0.4 % Neutrophils # (Auto) 7.4 TH/MM3 Lymphocytes # (Auto) 1.1 TH/MM3 Monocytes # (Auto) 0.9 TH/MM3 Eosinophils # (Auto) 0.0 TH/MM3 Basophils # (Auto) 0.0 TH/MM3 CBC Comment DIFF FINAL Differential Comment Total Protein 6.6 GM/DL Albumin 3.3 GM/DL Phosphorus Level 3.2 MG/DL Alkaline Phosphatase 76 U/L Aspartate Amino Transf (AST/SGOT) 22 U/L Alanine Aminotransferase (ALT/SGPT) 25 U/L Total Bilirubin 0.3 MG/DL Thyroid Stimulating Hormone 3rd Gen 2.740 uIU/ML Imaging Last Impressions Chest X-Ray 12/26/17 0000 Signed Impressions: CONCLUSION: 1. Cardiomegaly with bibasilar consolidations and small right effusion. Rig ht basilar consolidation is new from the prior study. Objective Remarks GENERAL: Patient is lying in bed in NAD SKIN: Warm and dry. HEAD: Normocephalic. EYES: No scleral icterus. No injection or drainage. NECK: Supple, trachea midline. No JVD or lymphadenopathy. CARDIOVASCULAR: Regular rate and rhythm without murmurs, gallops, or rubs. RESPIRATORY: Breath sounds equal bilaterally. No accessory muscle use. GASTROINTESTINAL: Abdomen soft, non-tender, nondistended. MUSCULOSKELETAL: No cyanosis, or edema. Neuro: Awake and alert A/P Assessment and Plan 1. Respiratory insufficiency. 2. Severe aortic valve stenosis. 3. Status post transcatheter aortic valve replacement. 4. Hypertension. 5. Diabetes mellitus. 6. Hyperlipidemia. 7. Morbid obesity. Plan Neuro: Monitor neuro status closely and avoid any sedatives. Pulm: Continue with oxygen to maintain sats > 92%. Bronchodilators, Incentive spirometry q.1 hour while awake. CV: Monitor HR and BP maintain MAP> 65 mmHg. Continue Aspirin 81 mg daily, Lipitor 40 mg daily, Plavix 75 mg daily and Lasix 40 mg IV daily. Cards- Dr. Dominguez, CTS: Dr. Rosas : Monitor renal function, I's and O's and electrolyte replacement per protocol. Continue with diuretics On Flomax 0.8 mg p.o. at bedtime and Proscar 5 mg daily. GI: On PO diet ID: Perioperative antibiotics per CT Surgery. He is on cefazolin. Monitor for signs of infection,( fever and WBC). Heme: Monitor CBC, On Ferrous sulfate 325mg daily Endo: SSI with Accu-Cheks to maintain euglycemia. Continue with Synthroid 100 mcg daily. TSH level: 2.7. No indications for GI prophylaxis DVT prophylaxis-SCD Chemical anticoagulation prophylaxis once cleared by CT Surgery. Will sign off Level 2 Belkis Montelongo MD Dec 27, 2017 10:15
[2017-12-27 12:38] LABS: BILIRUBIN, URINE NEG (NEG); BLOOD, URINE NEG (NEG); GLUCOSE,URINE NEG (NEG); KETONE, URINE NEG (NEG); MUCUS URINE FEW /lpf (OCC); NITRITE,URINE NEG (NEG); SQUAMOUS EPITHELIAL CELL URINE <1 /hpf (0-5); URINE LEUKOCYTE ESTERASE NEG (NEG)
[2017-12-27 12:41] LABS: URINE COLOR STRAW (YELLW/STRAW)
--- NOTE | 2017-12-27 14:14 | EKG ---
Date Performed: 12/27/2017 Time Performed: 04:39:24 PTAGE: 82 years EKG: Sinus rhythm with PVC(s) IV conduction defect Inferior infarct - age undetermined Low QRS voltages in precordial leads Abnormal ECG Compared to prior electrocardiogram, Premature ventricular contractions are now pr esent . PREVIOUS TRACING : 12/26/2017 10.12 DOCTOR: Terry Juares Interpretating Date/Time 12/27/2017 14:13:41
--- NOTE | 2017-12-29 15:33 | MB ---
cc: Laura Day MD,Brendon Quesada MD DATE: 12/26/2017 DATE OF CONSULTATION: 12/26/2017 REASON FOR CONSULTATION: Electrophysiology evaluation status post TAVR. HISTORY OF PRESENT ILLNESS: Mr. Ashton is an 82-year-old gentleman with history of high blood pressure, hyperlipidemia, diabetes mellitus, aortic stenosis, previous with shortness of breath and syncope. Aortic valve replacement was performed due to aortic stenosis. I was consulted for evaluation and management for possible conduction disease. The chart was reviewed. The patient was evaluated. ALLERGIES: NONE. SOCIAL HISTORY: Negative for smoking and drinking. FAMILY HISTORY: Noncontributory to his current medical condition. MEDICATIONS: The gentleman is on Plavix 75 mg a day. He is on atorvastatin. He is on Finasteride, Levoxyl, metformin, atenolol and enalapril. REVIEW OF SYSTEMS: He refers feeling okay. No chest pain, no chest discomfort. PHYSICAL EXAMINATION: GENERAL: Alert, fully oriented. VITAL SIGNS: His blood pressure on evaluation is 101/67, pulse 74, respiratory rate 18. LUNGS: Ventilated. CARDIOVASCULAR: S1, S2. No gallop. No murmur. ABDOMEN: Soft. No mass. Obese. EXTREMITIES: No edema. SKIN: Right jugular area with a central line. ELECTROCARDIOGRAM: Shows sinus rhythm, PVCs, some intraventricular conduction delay. There is no significant change compared to the previous electrocardiogram taken pre-TAVR. ASSESSMENT AND RECOMMENDATIONS: Mr. Ashton currently is stable. No AV block observed. No need for pacing support. Electrocardiogram showed no change compared to baseline echocardiogram. At this point my recommendation is to continue with current management. The patient can be discharged home whenever it is okay with the managing team. I will be available on a p.r.n. basis. Laura Day MD HS/SB , 02:43 PM , 03:31 PM
== END 2017-12-27 20:45 | disposition home or self-care (01) | DRG 267 ==
LOC: HSDI 05:19 → HDIC 05:21 → HCVI 09:51 → HCPC 12-27 08:07 → HCVI 12-27 08:14 → HCPC 12-27 11:23
PROVIDERS: ADMIT Internal Medicine; ATTEND Internal Medicine
PROC: B246ZZ4 Ultrasonography of Right and Left Heart, Transesophageal (ICD-10-PCS; 2017-12-26)
PROC: B2111ZZ Fluoroscopy of Multiple Coronary Arteries using Low Osmolar Contrast (ICD-10-PCS; 2017-12-26)
PROC: 4A023N7 Measurement of Cardiac Sampling and Pressure, Left Heart, Percutaneous Approach (ICD-10-PCS; 2017-12-26)
PROC: 02RF38Z Replacement of Aortic Valve with Zooplastic Tissue, Percutaneous Approach (ICD-10-PCS; principal; 2017-12-26 07:25)
PROC: 027F3ZZ Dilation of Aortic Valve, Percutaneous Approach (ICD-10-PCS; 2017-12-26 07:25)
PROC: B3101ZZ Fluoroscopy of Thoracic Aorta using Low Osmolar Contrast (ICD-10-PCS; 2017-12-26 07:25)
DX: I35.2 Nonrheumatic aortic (valve) stenosis with insufficiency (principal); I50.30 Unspecified diastolic (congestive) heart failure; I11.0 Hypertensive heart disease with heart failure; E11.40 Type 2 diabetes mellitus with diabetic neuropathy, unspecified; Z68.42 Body mass index [BMI] 45.0-49.9, adult; I25.10 Atherosclerotic heart disease of native coronary artery without angina pectoris; Z00.6 Encounter for examination for normal comparison and control in clinical research program; N40.0 Benign prostatic hyperplasia without lower urinary tract symptoms; E78.5 Hyperlipidemia, unspecified; M19.90 Unspecified osteoarthritis, unspecified site; E66.01 Morbid (severe) obesity due to excess calories; R54 Age-related physical debility; I89.0 Lymphedema, not elsewhere classified; G47.30 Sleep apnea, unspecified; E03.9 Hypothyroidism, unspecified
CPT/HCPCS: 33210; 33361; 36430; 71045; 80048; 80053; 81001; 82948; 83735; 84100; 84443; 85002; 85025; 85027; 85610; 86850; 86900; 86901; 86920; 92986; 93005; 93308; 93312; 93320; 93325; 94150; 94640; 94664; C1760; C1769; C1893; G0269; J0330; J0690; J1100; J1644; J1940; J2370; J2405; J2720; J3010; J7030; P9016; Q9967